=== PATIENT | male | born 1950 | race Two or more races ===

== ENCOUNTER 2024-10-13 02:11 | Inpatient (IN) | payer MEDICARE ==
[2024-10-13] VITALS (9 sets, daily range): BP systolic 118–126; BP diastolic 66–75; TEMP 98.2; O2SAT 97–100
[~2024-10-13] VITALS: Ht 172.7 cm; Wt 85.4 kg
[2024-10-13] MEDS ORDERED: ACETAMINOPHEN 650 MG/SUPP.RECT RC ONE (02:28)
[2024-10-13] MEDS: ACETAMINOPHEN 650 MG/SUPP.RECT RC ONE (02:34)
[2024-10-13 02:37] LABS: BASOPHILS # (AUTO) 0.1 K/uL (0.0-0.2); BASOPHILS % (AUTO) 0.5 % (0.0-2.0); EOSINOPHILS # (AUTO) 0.2 K/uL (0.0-0.7); EOSINOPHILS % (AUTO) 1.3 % (0.0-6.0); HEMATOCRIT 28 % (39-51); HEMOGLOBIN 8.9 g/dL (13.5-17.5); LYMPHOCYTES # (AUTO) 0.6 K/uL (0.8-4.8); LYMPHOCYTES % (AUTO) 4.6 % (20.0-44.0); MEAN CORPUSCULAR HEMOGLOBIN 26 PG (26.0-33.0); MEAN CORPUSCULAR HGB CONC 32 g/dl (31.0-36.0); MEAN CORPUSCULAR VOLUME 80 fL (80-96); MONOCYTES # (AUTO) 1.1 K/uL (0.1-1.30); MONOCYTES % (AUTO) 8.3 % (2.0-12.0); NEUTROPHILS # (AUTO) 11.6 K/uL (1.8-8.9); NEUTROPHILS % (AUTO) 85.3 % (43.0-81.0); PLATELET COUNT (AUTO) 166 K/uL (150-450); RED BLOOD CELL COUNT(AUTO) 3.48 MIL/uL (4.5-6.0); RED CELL DISTRIBUTION WIDTH 17.3 % (11.5-15.0); WHITE BLOOD COUNT (AUTO) 13.6 K/uL (4.3-11.0)
[2024-10-13 02:38] LABS: APPEARANCE,URINE CLEAR (CLEAR); BILIRUBIN,URINE NEGATIVE (NEGATIVE); BLOOD, URINE NEGATIVE Ery/uL (NEGATIVE); COLOR,URINE YELLOW (YELLOW); KETONES,URINE TRACE mg/dL (NEGATIVE); LEUKOCYTE ESTERASE ,URINE NEGATIVE (NEGATIVE); NITRITE, URINE NEGATIVE (NEGATIVE); PH,URINE 6.5 (5.0-8.0); PROTEIN,URINE TRACE mg/dl (NEGATIVE); UGLUCOSE NEGATIVE (NEGATIVE)
[2024-10-13 02:39] LABS: OCCULT BLOOD STOOL POSITIVE (NEGATIVE)
[2024-10-13 02:43] LABS: ABG BASE EXCESS 8.2 mmol/L (-2.0-3.0); ABG OXYGEN SATURATION 86.5 % (94.0-98.0); ABG PCO2 39.8 mmHg (35.0-48.0); ABG PH 7.519 (7.350-7.450); ABG PO2 48.8 mmHg (83.0-108.0); ABG TOTAL HEMOGLOBIN 10.1 G/dL (13.5-17.5); COHb 0.3 % (0.5-1.5); MetHb 0.3 % (0.0-1.5); SITE, ABG RIGHT RADIAL
[2024-10-13 02:49] LABS: CALCIUM, SERUM 8.3 mg/dL (8.5-10.1); CARBON DIOXIDE 38 mmol/L (21-32); CHLORIDE 105 mmol/L (98-107); CREATININE 0.8 mg/dL (0.6-1.3); GLUCOSE 260 mg/dL (74-106); SODIUM SERUM 140 mmol/L (136-145); UREA NITROGEN, BLOOD 30 mg/dL (7-18)
[2024-10-13 03:02] LABS: ALANINE AMINOTRANSFERASE 17 U/L (12-78); ALBUMIN 1.8 g/dL (3.4-5.0); ALKALINE PHOSPHATASE 248 U/L (46-116); ASPARTATE AMINOTRANSFERASE 26 U/L (15-37); BILIRUBIN,TOTAL 0.4 mg/dL (0.2-1.0); NT-PRO BNP 543 pg/mL (0-125); TOTAL PROTEIN, SERUM 8.5 g/dL (6.4-8.2)
[2024-10-13] MEDS ORDERED: PANTOPRAZOLE 40 MG VIAL ONE ×2 (03:02→08:47)
[2024-10-13] MEDS ORDERED: PIPERACI/TAZO 3.375GM/D5W 50ML PB IV ONE (03:03)
[2024-10-13] MEDS: IV NS 0.9% 1,000 ML IV ONE ×2 (03:10)
[2024-10-13] MEDS: PANTOPRAZOLE 40 MG VIAL IV ONE (03:10)
[2024-10-13 03:13] LABS: ADD URINE CULTURE NO; BACTERIA,URINE None seen /HPF (None Seen); MUCUS,URINE Few /LPF (None Seen); RBC,URINE NONE SEEN /HPF (0-2); SQUAMOUS EPITHELIAL CELL,UR None Seen /HPF (None Seen); WBC,URINE NONE SEEN /HPF (0-3)
[2024-10-13] MEDS: PIPERACILLIN /TAZOBACTAM 3.375 G in IV D5W 50 ML IV ONE (03:15)
[2024-10-13 03:27] LABS: LACTIC ACID 3.5 mmol/L (0.4-2.0)
[2024-10-13] MEDS ORDERED: INSULIN REGULAR, HUMAN 100 UNIT/ML 10 ML VIAL SQ SCH (06:00)
[2024-10-13] MEDS ORDERED: ALBUTEROL FS 2.5 MG/3 ML VIAL.NEB NEB PRN (06:00)
[2024-10-13] MEDS: ENOXAPARIN SODIUM 40 MG/0.4 ML DISP.SYRIN SQ SCH (06:00)
[2024-10-13] MEDS ORDERED: Z GUARD REMEDY 4 OZ OINT TP PRN (06:00)
[2024-10-13] MEDS ORDERED: ONDANSETRON HCL/PF 4 MG/2 ML VIAL IVP PRN (06:00)
[2024-10-13] MEDS ORDERED: ENOXAPARIN SODIUM 40 MG/0.4 ML DISP.SYRIN SQ ONE (06:21)
[2024-10-13] MEDS: BLOOD SUGAR DIAGNOSTIC 1 EACH STRIP IN SCH (06:33)
[2024-10-13] MEDS ORDERED: MAGN400O6 GT (08:29)
[2024-10-13] MEDS ORDERED: IPRA4AER IH ×2 (08:29)
[2024-10-13] MEDS ORDERED: NUT.237L30 GT (08:29)
[2024-10-13] MEDS ORDERED: PYRI25TA4 GT (08:29)
[2024-10-13] MEDS ORDERED: BISA10SU11 RC (08:29)
[2024-10-13] MEDS ORDERED: SIMV10TA98 GT (08:29)
[2024-10-13] MEDS ORDERED: ACET-2030 GT (08:29)
[2024-10-13] MEDS ORDERED: DOCU100T2 GT (08:29)
[2024-10-13] MEDS ORDERED: AMIN30LI66 GT (08:29)
[2024-10-13] MEDS ORDERED: ACET-868 GT (08:29)
[2024-10-13] MEDS ORDERED: CHLO473M2 MM (08:29)
[2024-10-13] MEDS ORDERED: NA P133E RC (08:29)
[2024-10-13] MEDS ORDERED: INSU100V SQ (08:29)
[2024-10-13] MEDS ORDERED: ENOX60DI SQ (08:29)
[2024-10-13] MEDS ORDERED: HYDR-4182 RC (08:29)
[2024-10-13] MEDS ORDERED: BENA40TA8 GT (08:29)
[2024-10-13] MEDS ORDERED: HYDR25TA4 GT (08:29)
[2024-10-13] MEDS ORDERED: OMEP20CA15 GT (08:29)
[2024-10-13] MEDS ORDERED: INSU100V7 SQ (08:29)
[2024-10-13] MEDS: IV NS 0.9% 1,000 ML IV PRN (08:30)
[2024-10-13 08:47] LABS: BASOPHILS % (AUTO) 0.4 % (0.0-2.0); EOSINOPHILS # (AUTO) 0.2 K/uL (0.0-0.7); EOSINOPHILS % (AUTO) 2.4 % (0.0-6.0); HEMATOCRIT 27 % (39-51); HEMOGLOBIN 8.7 g/dL (13.5-17.5); LYMPHOCYTES # (AUTO) 0.7 K/uL (0.8-4.8); LYMPHOCYTES % (AUTO) 7.3 % (20.0-44.0); MEAN CORPUSCULAR HEMOGLOBIN 26 PG (26.0-33.0); MEAN CORPUSCULAR HGB CONC 33 g/dl (31.0-36.0); MEAN CORPUSCULAR VOLUME 80 fL (80-96); MONOCYTES # (AUTO) 1.1 K/uL (0.1-1.30); MONOCYTES % (AUTO) 11.5 % (2.0-12.0); NEUTROPHILS # (AUTO) 7.8 K/uL (1.8-8.9); NEUTROPHILS % (AUTO) 78.4 % (43.0-81.0); PLATELET COUNT (AUTO) 146 K/uL (150-450); RED BLOOD CELL COUNT(AUTO) 3.32 MIL/uL (4.5-6.0); RED CELL DISTRIBUTION WIDTH 17.3 % (11.5-15.0)
[2024-10-13] MEDS: PANTOPRAZOLE 40 MG VIAL IV SCH (09:01)
[2024-10-13 09:35] LABS: ALBUMIN 1.7 g/dL (3.4-5.0); CARBON DIOXIDE 36 mmol/L (21-32); CHLORIDE 108 mmol/L (98-107); GLUCOSE 218 mg/dL (74-106); MAGNESIUM 2.3 mg/dL (1.8-2.4); NT-PRO BNP 842 pg/mL (0-125); PHOSPHORUS 2.7 mg/dL (2.5-4.9); POTASSIUM 3.7 mmol/L (3.5-5.1); SODIUM SERUM 144 mmol/L (136-145); UREA NITROGEN, BLOOD 27 mg/dL (7-18)
[2024-10-13 09:50] LABS: LACTIC ACID 2.1 mmol/L (0.4-2.0)
[2024-10-13 10:24] LABS: CREATININE 0.4 mg/dL (0.6-1.3)
[2024-10-13] MEDS: ZOSYN IVPB 3.375 G in IV D5W 50ml IV SCH ×2 (12:00→23:28)
[2024-10-13] MEDS: INSULIN REGULAR, HUMAN 100 UNIT/ML 3 ML VIAL SQ SCH (12:00)
[2024-10-13] MEDS: FUROSEMIDE 20 MG/2 ML VIAL IV SCH (14:11)
[2024-10-14] VITALS (11 sets, daily range): BP systolic 113–133; BP diastolic 62–74; TEMP 97.3–100.4; O2SAT 96–99
[2024-10-14 07:22] LABS: INR 1.13 (0.91-1.10); PROTHROMBIN TIME 11.9 SECS (9.2-11.1)
[2024-10-14 07:24] LABS: BASOPHILS % (AUTO) 0.5 % (0.0-2.0); CALCIUM, SERUM 8.2 mg/dL (8.5-10.1); CREATININE 0.6 mg/dL (0.6-1.3); EOSINOPHILS # (AUTO) 0.5 K/uL (0.0-0.7); EOSINOPHILS % (AUTO) 7.4 % (0.0-6.0); HEMATOCRIT 23 % (39-51); HEMOGLOBIN 7.5 g/dL (13.5-17.5); LYMPHOCYTES # (AUTO) 0.6 K/uL (0.8-4.8); LYMPHOCYTES % (AUTO) 9.3 % (20.0-44.0); MAGNESIUM 2.3 mg/dL (1.8-2.4); MEAN CORPUSCULAR HEMOGLOBIN 26 PG (26.0-33.0); MEAN CORPUSCULAR HGB CONC 32 g/dl (31.0-36.0); MEAN CORPUSCULAR VOLUME 81 fL (80-96); MONOCYTES # (AUTO) 0.7 K/uL (0.1-1.30); MONOCYTES % (AUTO) 10.2 % (2.0-12.0); NEUTROPHILS # (AUTO) 4.7 K/uL (1.8-8.9); NEUTROPHILS % (AUTO) 72.6 % (43.0-81.0); PHOSPHORUS 2.5 mg/dL (2.5-4.9); PLATELET COUNT (AUTO) 140 K/uL (150-450); POTASSIUM 3.4 mmol/L (3.5-5.1); RED BLOOD CELL COUNT(AUTO) 2.89 MIL/uL (4.5-6.0); RED CELL DISTRIBUTION WIDTH 17.5 % (11.5-15.0); WHITE BLOOD COUNT (AUTO) 6.5 K/uL (4.3-11.0)
[2024-10-14] MEDS: POTASSIUM CL. PREMIX PERIPHER. 50 ML IV SCH (10:38)
[2024-10-14] MEDS: NEOMY SULF/BACITRAC ZN/POLY 15 GM TUBE TP SCH (10:38)
[2024-10-14] MEDS: ACETAMINOPHEN 650 MG/SUPP.RECT RC PRN (11:50)
[2024-10-14] MEDS ORDERED: DEXTROSE 50%-WATER 50 ML DISP.SYRIN IV PRN (18:30)
[2024-10-14] MEDS: GLUCERNA 1.2 1,000 ML BOTTLE NG PRN (19:04)
[2024-10-14] MEDS: INSULIN REGULAR, HUMAN 100 UNIT/ML 3 ML VIAL SQ PRN (19:05)
[2024-10-14] MEDS: PANTOPRAZOLE 40 MG VIAL IV SCH (21:00)
[2024-10-15] VITALS (8 sets, daily range): BP systolic 118–187; BP diastolic 70–103; TEMP 97.7–99.1; O2SAT 92–100
[2024-10-15] MEDS: BLOOD SUGAR DIAGNOSTIC 1 EACH STRIP IN SCH (00:49)
[2024-10-15 07:40] LABS: CALCIUM, SERUM 8.2 mg/dL (8.5-10.1); CREATININE 0.6 mg/dL (0.6-1.3); POTASSIUM 4.2 mmol/L (3.5-5.1)
[2024-10-15 10:15] LABS: BASOPHILS % (AUTO) 0.7 % (0.0-2.0); EOSINOPHILS # (AUTO) 0.4 K/uL (0.0-0.7); EOSINOPHILS % (AUTO) 6.9 % (0.0-6.0); HEMATOCRIT 25 % (39-51); LYMPHOCYTES # (AUTO) 0.6 K/uL (0.8-4.8); LYMPHOCYTES % (AUTO) 11.5 % (20.0-44.0); MEAN CORPUSCULAR HEMOGLOBIN 26 PG (26.0-33.0); MEAN CORPUSCULAR HGB CONC 32 g/dl (31.0-36.0); MEAN CORPUSCULAR VOLUME 81 fL (80-96); MONOCYTES # (AUTO) 0.6 K/uL (0.1-1.30); MONOCYTES % (AUTO) 10.8 % (2.0-12.0); NEUTROPHILS % (AUTO) 70.1 % (43.0-81.0); PLATELET COUNT (AUTO) 143 K/uL (150-450); RED BLOOD CELL COUNT(AUTO) 3.11 MIL/uL (4.5-6.0); RED CELL DISTRIBUTION WIDTH 17.3 % (11.5-15.0); WHITE BLOOD COUNT (AUTO) 5.6 K/uL (4.3-11.0)
[2024-10-15] MEDS: PANTOPRAZOLE 40 MG/PACK PACK GT SCH (20:43)
[2024-10-16] VITALS (11 sets, daily range): BP systolic 113–165; BP diastolic 62–97; TEMP 98.1–100.1; O2SAT 96–99
[2024-10-16 06:56] LABS: BASOPHILS % (AUTO) 0.7 % (0.0-2.0); EOSINOPHILS # (AUTO) 0.3 K/uL (0.0-0.7); EOSINOPHILS % (AUTO) 4.7 % (0.0-6.0); HEMATOCRIT 26 % (39-51); HEMOGLOBIN 8.3 g/dL (13.5-17.5); LYMPHOCYTES # (AUTO) 0.7 K/uL (0.8-4.8); LYMPHOCYTES % (AUTO) 9.8 % (20.0-44.0); MEAN CORPUSCULAR HEMOGLOBIN 26 PG (26.0-33.0); MEAN CORPUSCULAR HGB CONC 32 g/dl (31.0-36.0); MEAN CORPUSCULAR VOLUME 81 fL (80-96); MONOCYTES # (AUTO) 0.7 K/uL (0.1-1.30); NEUTROPHILS # (AUTO) 5.3 K/uL (1.8-8.9); NEUTROPHILS % (AUTO) 74.8 % (43.0-81.0); PLATELET COUNT (AUTO) 158 K/uL (150-450); RED BLOOD CELL COUNT(AUTO) 3.21 MIL/uL (4.5-6.0); RED CELL DISTRIBUTION WIDTH 17.4 % (11.5-15.0); WHITE BLOOD COUNT (AUTO) 7.1 K/uL (4.3-11.0)
[2024-10-16 07:19] LABS: CALCIUM, SERUM 8.4 mg/dL (8.5-10.1); CREATININE 0.7 mg/dL (0.6-1.3); MAGNESIUM 2.2 mg/dL (1.8-2.4); POTASSIUM 3.7 mmol/L (3.5-5.1)
[2024-10-16 09:18] LABS: ABG BASE EXCESS 6.2 mmol/L (-2.0-3.0); ABG OXYGEN SATURATION 98.2 % (94.0-98.0); ABG PCO2 43.7 mmHg (35.0-48.0); ABG PH 7.464 (7.350-7.450); ABG PO2 105.8 mmHg (83.0-108.0); ABG TOTAL HEMOGLOBIN 10.7 G/dL (13.5-17.5); COHb 0.7 % (0.5-1.5); MetHb 0.1 % (0.0-1.5); O2Hb 97.4 % (94.0-97.0); SITE, ABG RIGHT RADIAL
[2024-10-17] VITALS (8 sets, daily range): BP systolic 150–167; BP diastolic 81–98; TEMP 98.4–98.6; O2SAT 95–98
[2024-10-17 06:36] LABS: BASOPHILS % (AUTO) 0.6 % (0.0-2.0); EOSINOPHILS # (AUTO) 0.5 K/uL (0.0-0.7); EOSINOPHILS % (AUTO) 8.4 % (0.0-6.0); HEMATOCRIT 25 % (39-51); HEMOGLOBIN 8.1 g/dL (13.5-17.5); LYMPHOCYTES # (AUTO) 0.6 K/uL (0.8-4.8); LYMPHOCYTES % (AUTO) 10.8 % (20.0-44.0); MEAN CORPUSCULAR HEMOGLOBIN 26 PG (26.0-33.0); MEAN CORPUSCULAR HGB CONC 32 g/dl (31.0-36.0); MEAN CORPUSCULAR VOLUME 81 fL (80-96); MONOCYTES # (AUTO) 0.5 K/uL (0.1-1.30); MONOCYTES % (AUTO) 9.9 % (2.0-12.0); NEUTROPHILS # (AUTO) 3.9 K/uL (1.8-8.9); NEUTROPHILS % (AUTO) 70.3 % (43.0-81.0); PLATELET COUNT (AUTO) 147 K/uL (150-450); RED BLOOD CELL COUNT(AUTO) 3.07 MIL/uL (4.5-6.0); RED CELL DISTRIBUTION WIDTH 17.3 % (11.5-15.0); WHITE BLOOD COUNT (AUTO) 5.5 K/uL (4.3-11.0)
[2024-10-17 07:12] LABS: CREATININE 0.7 mg/dL (0.6-1.3); MAGNESIUM 2.3 mg/dL (1.8-2.4); PHOSPHORUS 2.7 mg/dL (2.5-4.9); POTASSIUM 3.7 mmol/L (3.5-5.1)
[2024-10-17 07:29] LABS: CALCIUM, SERUM 8.6 mg/dL (8.5-10.1)
[2024-10-17] MEDS: methylPREDNISolone SOD SUCC 125 MG/2ML VIAL IV SCH (14:42)
[2024-10-18] VITALS (8 sets, daily range): BP systolic 152–160; BP diastolic 87–97; TEMP 99–101.3; O2SAT 92–98
[2024-10-18 07:56] LABS: BASOPHILS % (AUTO) 0.1 % (0.0-2.0); EOSINOPHILS % (AUTO) 0.1 % (0.0-6.0); HEMATOCRIT 26 % (39-51); HEMOGLOBIN 8.3 g/dL (13.5-17.5); LYMPHOCYTES # (AUTO) 0.2 K/uL (0.8-4.8); LYMPHOCYTES % (AUTO) 3.2 % (20.0-44.0); MEAN CORPUSCULAR HEMOGLOBIN 26 PG (26.0-33.0); MEAN CORPUSCULAR HGB CONC 33 g/dl (31.0-36.0); MEAN CORPUSCULAR VOLUME 81 fL (80-96); MONOCYTES # (AUTO) 0.1 K/uL (0.1-1.30); MONOCYTES % (AUTO) 2.1 % (2.0-12.0); NEUTROPHILS # (AUTO) 6.2 K/uL (1.8-8.9); NEUTROPHILS % (AUTO) 94.5 % (43.0-81.0); PLATELET COUNT (AUTO) 147 K/uL (150-450); RED BLOOD CELL COUNT(AUTO) 3.16 MIL/uL (4.5-6.0); RED CELL DISTRIBUTION WIDTH 17.4 % (11.5-15.0); WHITE BLOOD COUNT (AUTO) 6.5 K/uL (4.3-11.0)
[2024-10-18 08:27] LABS: CALCIUM, SERUM 8.7 mg/dL (8.5-10.1); CREATININE 0.8 mg/dL (0.6-1.3); MAGNESIUM 2.2 mg/dL (1.8-2.4); PHOSPHORUS 2.8 mg/dL (2.5-4.9); POTASSIUM 4.8 mmol/L (3.5-5.1)
[2024-10-18 12:31] LABS: ABG BASE EXCESS 5.8 mmol/L (-2.0-3.0); ABG OXYGEN SATURATION 96.8 % (94.0-98.0); ABG PCO2 45.8 mmHg (35.0-48.0); ABG PH 7.442 (7.350-7.450); ABG PO2 88.8 mmHg (83.0-108.0); ABG TOTAL HEMOGLOBIN 9.2 G/dL (13.5-17.5); COHb 0.5 % (0.5-1.5); MetHb 0.2 % (0.0-1.5); O2Hb 96.1 % (94.0-97.0); SITE, ABG RIGHT RADIAL
[2024-10-18 20:48] LABS: APPEARANCE,URINE CLEAR (CLEAR); BILIRUBIN,URINE NEGATIVE (NEGATIVE); BLOOD, URINE NEGATIVE Ery/uL (NEGATIVE); COLOR,URINE YELLOW (YELLOW); KETONES,URINE NEGATIVE (NEGATIVE); LEUKOCYTE ESTERASE ,URINE NEGATIVE (NEGATIVE); NITRITE, URINE NEGATIVE (NEGATIVE); PROTEIN,URINE 1+ mg/dl (NEGATIVE); UGLUCOSE 2+ mg/dL (NEGATIVE); UROBILINOGEN,URINE 0.2 EU/dL (0.2)
[2024-10-18 20:53] LABS: ADD URINE CULTURE NO; BACTERIA,URINE Rare /HPF (None Seen); MUCUS,URINE Few /LPF (None Seen); RBC,URINE 0-2 /HPF (0-2); SQUAMOUS EPITHELIAL CELL,UR None Seen /HPF (None Seen); WBC,URINE 0-2 /HPF (0-3)
[2024-10-19] VITALS (9 sets, daily range): BP systolic 155–188; BP diastolic 90–101; TEMP 97.6–100.4; O2SAT 95–99
[2024-10-19 07:30] LABS: BASOPHILS % (AUTO) 0.3 % (0.0-2.0); HEMATOCRIT 25 % (39-51); HEMOGLOBIN 8.1 g/dL (13.5-17.5); LYMPHOCYTES # (AUTO) 0.2 K/uL (0.8-4.8); LYMPHOCYTES % (AUTO) 2.3 % (20.0-44.0); MEAN CORPUSCULAR HEMOGLOBIN 26 PG (26.0-33.0); MEAN CORPUSCULAR HGB CONC 32 g/dl (31.0-36.0); MEAN CORPUSCULAR VOLUME 81 fL (80-96); MONOCYTES # (AUTO) 0.4 K/uL (0.1-1.30); MONOCYTES % (AUTO) 3.9 % (2.0-12.0); NEUTROPHILS # (AUTO) 9.2 K/uL (1.8-8.9); NEUTROPHILS % (AUTO) 93.5 % (43.0-81.0); PLATELET COUNT (AUTO) 167 K/uL (150-450); RED BLOOD CELL COUNT(AUTO) 3.07 MIL/uL (4.5-6.0); RED CELL DISTRIBUTION WIDTH 17.3 % (11.5-15.0); WHITE BLOOD COUNT (AUTO) 9.8 K/uL (4.3-11.0)
[2024-10-19 10:14] LABS: CALCIUM, SERUM 8.7 mg/dL (8.5-10.1); MAGNESIUM 2.3 mg/dL (1.8-2.4); PHOSPHORUS 2.2 mg/dL (2.5-4.9); POTASSIUM 4.1 mmol/L (3.5-5.1)
[2024-10-19] MEDS: NEUTRA PHOS 1 POWD.PACKET GT ONE (15:56)
[2024-10-19] MEDS: hydrALAZINE HCL 25 MG TABLET PO PRN (17:17)
[2024-10-20] VITALS (9 sets, daily range): BP systolic 137–186; BP diastolic 66–98; TEMP 98.1–98.6; O2SAT 94–97
[2024-10-20] MEDS: INSULIN REGULAR, HUMAN 100 UNIT/ML 3 ML VIAL SQ ONE ×2 (01:50→03:30)
[2024-10-20] MEDS ORDERED: DEXTROSE 50%-WATER 50 ML DISP.SYRIN IV PRN (03:30)
[2024-10-20] MEDS: BLOOD SUGAR DIAGNOSTIC 1 EACH STRIP IN SCH (06:02)
[2024-10-20] MEDS: INSULIN REGULAR, HUMAN 100 UNIT/ML 3 ML VIAL SQ PRN (06:15)
[2024-10-20 07:18] LABS: CALCIUM, SERUM 9.1 mg/dL (8.5-10.1); MAGNESIUM 2.5 mg/dL (1.8-2.4); PHOSPHORUS 2.8 mg/dL (2.5-4.9); POTASSIUM 4.2 mmol/L (3.5-5.1)
[2024-10-20] MEDS: AMLODIPINE BESYLATE 5 MG TABLET PO SCH (08:20)
[2024-10-20] MEDS: INSULIN GLARGINE, 100 UNIT/ML CARTRIDGE SQ SCH (08:34)
[2024-10-20 12:24] LABS: BASOPHILS % (AUTO) 0.1 % (0.0-2.0); HEMATOCRIT 29 % (39-51); HEMOGLOBIN 8.8 g/dL (13.5-17.5); LYMPHOCYTES # (AUTO) 0.1 K/uL (0.8-4.8); LYMPHOCYTES % (AUTO) 1.2 % (20.0-44.0); MEAN CORPUSCULAR HEMOGLOBIN 26 PG (26.0-33.0); MEAN CORPUSCULAR HGB CONC 31 g/dl (31.0-36.0); MEAN CORPUSCULAR VOLUME 84 fL (80-96); MONOCYTES # (AUTO) 0.6 K/uL (0.1-1.30); MONOCYTES % (AUTO) 4.7 % (2.0-12.0); NEUTROPHILS # (AUTO) 11.3 K/uL (1.8-8.9); PLATELET COUNT (AUTO) 160 K/uL (150-450); RED BLOOD CELL COUNT(AUTO) 3.41 MIL/uL (4.5-6.0); RED CELL DISTRIBUTION WIDTH 18.4 % (11.5-15.0)
[2024-10-21] VITALS: BP 151/79; TEMP 98.6; O2SAT 91
[2024-10-21] MEDS ORDERED: DEXTROSE 50%-WATER 50 ML DISP.SYRIN IV PRN (01:30)
[2024-10-21 02:33] VITALS: O2SAT 95
[2024-10-21 05:10] LABS: ABG BASE EXCESS 8.4 mmol/L (-2.0-3.0); ABG PCO2 103.9 mmHg (35.0-48.0); ABG PH 7.191 (7.350-7.450); ABG PO2 63.1 mmHg (83.0-108.0); ABG TOTAL HEMOGLOBIN 9.3 G/dL (13.5-17.5); COHb 0.6 % (0.5-1.5); MetHb 0.2 % (0.0-1.5); O2Hb 85.3 % (94.0-97.0); SITE, ABG LEFT RADIAL
[2024-10-21] MEDS: INSULIN REGULAR, HUMAN 100 UNIT/ML 3 ML VIAL SQ PRN (06:12)
[2024-10-21] MEDS: BLOOD SUGAR DIAGNOSTIC 1 EACH STRIP IN SCH (06:21)
[2024-10-21 07:52] LABS: BASOPHILS % (AUTO) 0.1 % (0.0-2.0); HEMATOCRIT 23 % (39-51); HEMOGLOBIN 7.3 g/dL (13.5-17.5); LYMPHOCYTES # (AUTO) 0.1 K/uL (0.8-4.8); LYMPHOCYTES % (AUTO) 1.1 % (20.0-44.0); MEAN CORPUSCULAR HEMOGLOBIN 26 PG (26.0-33.0); MEAN CORPUSCULAR HGB CONC 31 g/dl (31.0-36.0); MEAN CORPUSCULAR VOLUME 83 fL (80-96); MONOCYTES # (AUTO) 0.6 K/uL (0.1-1.30); MONOCYTES % (AUTO) 5.8 % (2.0-12.0); NEUTROPHILS # (AUTO) 9.8 K/uL (1.8-8.9); PLATELET COUNT (AUTO) 137 K/uL (150-450); RED BLOOD CELL COUNT(AUTO) 2.81 MIL/uL (4.5-6.0); RED CELL DISTRIBUTION WIDTH 17.2 % (11.5-15.0); WHITE BLOOD COUNT (AUTO) 10.5 K/uL (4.3-11.0)
[2024-10-21 08:14] VITALS: BP 99/56; TEMP 99.5; O2SAT 96
[2024-10-21 08:16] LABS: ALBUMIN 1.6 g/dL (3.4-5.0); BILIRUBIN,TOTAL 0.4 mg/dL (0.2-1.0); CALCIUM, SERUM 8.8 mg/dL (8.5-10.1); CREATININE 1.4 mg/dL (0.6-1.3); MAGNESIUM 2.8 mg/dL (1.8-2.4); PHOSPHORUS 3.5 mg/dL (2.5-4.9); POTASSIUM 4.6 mmol/L (3.5-5.1); TOTAL PROTEIN, SERUM 7.6 g/dL (6.4-8.2)
[2024-10-21 15:58] VITALS: BP 116/60; TEMP 98.8; O2SAT 96
[2024-10-21] MEDS: FREE WATER VIA TUBE FEEDING GT SCH (19:47)
[2024-10-21 20:00] VITALS: BP 148/79; TEMP 98.8; O2SAT 97
[2024-10-22 07:05] LABS: HEMATOCRIT 27 % (39-51); HEMOGLOBIN 8.7 g/dL (13.5-17.5); LYMPHOCYTES # (AUTO) 0.2 K/uL (0.8-4.8); LYMPHOCYTES % (AUTO) 1.4 % (20.0-44.0); MEAN CORPUSCULAR HEMOGLOBIN 26 PG (26.0-33.0); MEAN CORPUSCULAR HGB CONC 32 g/dl (31.0-36.0); MEAN CORPUSCULAR VOLUME 81 fL (80-96); MONOCYTES # (AUTO) 0.4 K/uL (0.1-1.30); MONOCYTES % (AUTO) 3.7 % (2.0-12.0); NEUTROPHILS % (AUTO) 94.9 % (43.0-81.0); PLATELET COUNT (AUTO) 125 K/uL (150-450); RED BLOOD CELL COUNT(AUTO) 3.33 MIL/uL (4.5-6.0); RED CELL DISTRIBUTION WIDTH 17.4 % (11.5-15.0); WHITE BLOOD COUNT (AUTO) 10.5 K/uL (4.3-11.0)
[2024-10-22 07:28] LABS: ALBUMIN 1.8 g/dL (3.4-5.0); BILIRUBIN,TOTAL 0.4 mg/dL (0.2-1.0); CALCIUM, SERUM 9.2 mg/dL (8.5-10.1); MAGNESIUM 2.8 mg/dL (1.8-2.4); PHOSPHORUS 1.9 mg/dL (2.5-4.9); POTASSIUM 3.6 mmol/L (3.5-5.1); TOTAL PROTEIN, SERUM 8.4 g/dL (6.4-8.2)
[2024-10-22 07:30] VITALS: BP 125/83; TEMP 97.7; O2SAT 99
[2024-10-22] MEDS: INSULIN GLARGINE, 100 UNIT/ML CARTRIDGE SQ SCH (09:07)
[2024-10-22] MEDS: ALBUTEROL FS 2.5 MG/3 ML VIAL.NEB NEB SCH (15:30)
[2024-10-22 16:00] VITALS: BP 117/61; TEMP 97.5; O2SAT 100
[2024-10-22] MEDS: FREE WATER VIA TUBE FEEDING GT SCH (16:37)
[2024-10-22] MEDS: NEUTRA PHOS 1 POWD.PACKET NG ONE (16:37)
[2024-10-22 20:00] VITALS: BP 132/75; TEMP 98; O2SAT 99
[2024-10-23] VITALS: BP 124/69; TEMP 98.1; O2SAT 100
[2024-10-23 07:41] LABS: BASOPHILS % (AUTO) 0.6 % (0.0-2.0); HEMATOCRIT 26 % (39-51); HEMOGLOBIN 8.1 g/dL (13.5-17.5); LYMPHOCYTES # (AUTO) 0.1 K/uL (0.8-4.8); LYMPHOCYTES % (AUTO) 1.1 % (20.0-44.0); MEAN CORPUSCULAR HEMOGLOBIN 26 PG (26.0-33.0); MEAN CORPUSCULAR HGB CONC 32 g/dl (31.0-36.0); MEAN CORPUSCULAR VOLUME 81 fL (80-96); MONOCYTES # (AUTO) 0.3 K/uL (0.1-1.30); MONOCYTES % (AUTO) 3.1 % (2.0-12.0); NEUTROPHILS # (AUTO) 7.9 K/uL (1.8-8.9); NEUTROPHILS % (AUTO) 95.2 % (43.0-81.0); PLATELET COUNT (AUTO) 131 K/uL (150-450); RED BLOOD CELL COUNT(AUTO) 3.19 MIL/uL (4.5-6.0); WHITE BLOOD COUNT (AUTO) 8.2 K/uL (4.3-11.0)
[2024-10-23 07:53] LABS: CALCIUM, SERUM 8.7 mg/dL (8.5-10.1); CREATININE 0.9 mg/dL (0.6-1.3); POTASSIUM 3.4 mmol/L (3.5-5.1)
[2024-10-23 08:00] VITALS: BP 129/69; TEMP 98.2; O2SAT 96
[2024-10-23 09:28] LABS: ABG BASE EXCESS 8.7 mmol/L (-2.0-3.0); ABG OXYGEN SATURATION 97.6 % (94.0-98.0); ABG PCO2 43.5 mmHg (35.0-48.0); ABG PH 7.495 (7.350-7.450); ABG PO2 99.6 mmHg (83.0-108.0); ABG TOTAL HEMOGLOBIN 9.1 G/dL (13.5-17.5); COHb 0.1 % (0.5-1.5); MetHb 0.3 % (0.0-1.5); O2Hb 97.2 % (94.0-97.0); PEEP,BG 5 cm H2O; SITE, ABG RIGHT RADIAL; VT, ABG 450 mL
[2024-10-23] MEDS: INSULIN GLARGINE, 100 UNIT/ML CARTRIDGE SQ SCH (10:15)
[2024-10-23] MEDS: POTASSIUM CHLORIDE 20 MEQ POWDER PACKET NG SCH (10:26)
[2024-10-23 16:00] VITALS: BP 127/69; TEMP 97.2; O2SAT 96
[2024-10-23 20:00] VITALS: BP 126/70; TEMP 98.2; O2SAT 100
[2024-10-24] VITALS (12 sets, daily range): BP systolic 116–130; BP diastolic 61–69; TEMP 97.7–98.4; O2SAT 93–99
[2024-10-24 06:41] LABS: BASOPHILS % (AUTO) 0.5 % (0.0-2.0); HEMATOCRIT 24 % (39-51); HEMOGLOBIN 7.8 g/dL (13.5-17.5); LYMPHOCYTES # (AUTO) 0.1 K/uL (0.8-4.8); LYMPHOCYTES % (AUTO) 1.1 % (20.0-44.0); MEAN CORPUSCULAR HEMOGLOBIN 26 PG (26.0-33.0); MEAN CORPUSCULAR HGB CONC 33 g/dl (31.0-36.0); MEAN CORPUSCULAR VOLUME 80 fL (80-96); MONOCYTES # (AUTO) 0.4 K/uL (0.1-1.30); MONOCYTES % (AUTO) 4.2 % (2.0-12.0); NEUTROPHILS % (AUTO) 94.2 % (43.0-81.0); PLATELET COUNT (AUTO) 133 K/uL (150-450); RED BLOOD CELL COUNT(AUTO) 2.96 MIL/uL (4.5-6.0); RED CELL DISTRIBUTION WIDTH 17.3 % (11.5-15.0); WHITE BLOOD COUNT (AUTO) 8.5 K/uL (4.3-11.0)
[2024-10-24 06:49] LABS: CALCIUM, SERUM 8.6 mg/dL (8.5-10.1); CREATININE 0.9 mg/dL (0.6-1.3); POTASSIUM 3.7 mmol/L (3.5-5.1)
[2024-10-24] MEDS: FREE WATER VIA TUBE FEEDING GT SCH (08:00)
[2024-10-24] MEDS: INSULIN GLARGINE, 100 UNIT/ML CARTRIDGE SQ SCH (09:30)
[2024-10-24 10:53] LABS: ABG BASE EXCESS 9.8 mmol/L (-2.0-3.0); ABG PCO2 43.7 mmHg (35.0-48.0); ABG PH 7.507 (7.350-7.450); ABG PO2 92.5 mmHg (83.0-108.0); COHb 0.3 % (0.5-1.5); MetHb 0.2 % (0.0-1.5); O2Hb 96.5 % (94.0-97.0); SITE, ABG RIGHT RADIAL
[2024-10-25] VITALS (11 sets, daily range): BP systolic 115–137; BP diastolic 66–77; TEMP 97.5–98.1; O2SAT 97–99
[2024-10-25 07:20] LABS: BASOPHILS % (AUTO) 0.5 % (0.0-2.0); HEMATOCRIT 27 % (39-51); HEMOGLOBIN 8.3 g/dL (13.5-17.5); LYMPHOCYTES # (AUTO) 0.1 K/uL (0.8-4.8); MEAN CORPUSCULAR HEMOGLOBIN 26 PG (26.0-33.0); MEAN CORPUSCULAR HGB CONC 31 g/dl (31.0-36.0); MEAN CORPUSCULAR VOLUME 82 fL (80-96); MONOCYTES # (AUTO) 0.3 K/uL (0.1-1.30); MONOCYTES % (AUTO) 3.7 % (2.0-12.0); NEUTROPHILS # (AUTO) 8.7 K/uL (1.8-8.9); NEUTROPHILS % (AUTO) 94.8 % (43.0-81.0); PLATELET COUNT (AUTO) 132 K/uL (150-450); RED BLOOD CELL COUNT(AUTO) 3.24 MIL/uL (4.5-6.0); RED CELL DISTRIBUTION WIDTH 17.7 % (11.5-15.0); WHITE BLOOD COUNT (AUTO) 9.1 K/uL (4.3-11.0)
[2024-10-25 07:44] LABS: CALCIUM, SERUM 8.3 mg/dL (8.5-10.1); CREATININE 1.1 mg/dL (0.6-1.3)
[2024-10-25] MEDS: INSULIN GLARGINE, 100 UNIT/ML CARTRIDGE SQ SCH (09:09)
[2024-10-25 09:21] LABS: BASOPHILS # (AUTO) 0.1 K/uL (0.0-0.2); BASOPHILS % (AUTO) 0.5 % (0.0-2.0); HEMATOCRIT 27 % (39-51); HEMOGLOBIN 8.5 g/dL (13.5-17.5); LYMPHOCYTES # (AUTO) 0.1 K/uL (0.8-4.8); LYMPHOCYTES % (AUTO) 1.2 % (20.0-44.0); MEAN CORPUSCULAR HEMOGLOBIN 26 PG (26.0-33.0); MEAN CORPUSCULAR HGB CONC 32 g/dl (31.0-36.0); MEAN CORPUSCULAR VOLUME 81 fL (80-96); MONOCYTES # (AUTO) 0.4 K/uL (0.1-1.30); MONOCYTES % (AUTO) 3.7 % (2.0-12.0); NEUTROPHILS # (AUTO) 10.2 K/uL (1.8-8.9); NEUTROPHILS % (AUTO) 94.6 % (43.0-81.0); PLATELET COUNT (AUTO) 135 K/uL (150-450); RED BLOOD CELL COUNT(AUTO) 3.32 MIL/uL (4.5-6.0); RED CELL DISTRIBUTION WIDTH 17.8 % (11.5-15.0); WHITE BLOOD COUNT (AUTO) 10.8 K/uL (4.3-11.0)
[2024-10-25 09:35] LABS: CALCIUM, SERUM 8.4 mg/dL (8.5-10.1); CREATININE 1.1 mg/dL (0.6-1.3); POTASSIUM 3.8 mmol/L (3.5-5.1)
[2024-10-26] VITALS (13 sets, daily range): BP systolic 100–146; BP diastolic 63–90; TEMP 97.5–97.7; O2SAT 97–100
[2024-10-26 07:27] LABS: BASOPHILS # (AUTO) 0.1 K/uL (0.0-0.2); BASOPHILS % (AUTO) 0.9 % (0.0-2.0); EOSINOPHILS % (AUTO) 0.1 % (0.0-6.0); HEMATOCRIT 27 % (39-51); HEMOGLOBIN 8.7 g/dL (13.5-17.5); LYMPHOCYTES # (AUTO) 0.3 K/uL (0.8-4.8); LYMPHOCYTES % (AUTO) 2.5 % (20.0-44.0); MEAN CORPUSCULAR HEMOGLOBIN 26 PG (26.0-33.0); MEAN CORPUSCULAR HGB CONC 32 g/dl (31.0-36.0); MEAN CORPUSCULAR VOLUME 80 fL (80-96); MONOCYTES # (AUTO) 0.7 K/uL (0.1-1.30); MONOCYTES % (AUTO) 6.8 % (2.0-12.0); NEUTROPHILS # (AUTO) 9.2 K/uL (1.8-8.9); NEUTROPHILS % (AUTO) 89.7 % (43.0-81.0); PLATELET COUNT (AUTO) 126 K/uL (150-450); RED BLOOD CELL COUNT(AUTO) 3.41 MIL/uL (4.5-6.0); RED CELL DISTRIBUTION WIDTH 17.7 % (11.5-15.0); WHITE BLOOD COUNT (AUTO) 10.2 K/uL (4.3-11.0)
[2024-10-26 07:44] LABS: CALCIUM, SERUM 8.4 mg/dL (8.5-10.1); CREATININE 0.8 mg/dL (0.6-1.3); POTASSIUM 3.2 mmol/L (3.5-5.1)
[2024-10-26] MEDS: predniSONE 20 MG TABLET PO SCH (09:41)
[2024-10-26] MEDS: POTASSIUM CHLORIDE 20 MEQ POWDER PACKET NG SCH (10:46)
[2024-10-26] MEDS ORDERED: FREE WATER VIA TUBE FEEDING GT SCH (21:00)
[2024-10-26] MEDS: FREE WATER VIA TUBE FEEDING GT SCH (21:41)
[2024-10-27] VITALS (11 sets, daily range): BP systolic 112–136; BP diastolic 68–82; TEMP 97.5–98.2; O2SAT 96–100
[2024-10-27 07:22] LABS: CALCIUM, SERUM 8.3 mg/dL (8.5-10.1); CREATININE 0.8 mg/dL (0.6-1.3); POTASSIUM 3.5 mmol/L (3.5-5.1)
[2024-10-27 08:42] LABS: BASOPHILS # (AUTO) 0.1 K/uL (0.0-0.2); BASOPHILS % (AUTO) 0.9 % (0.0-2.0); EOSINOPHILS # (AUTO) 0.1 K/uL (0.0-0.7); EOSINOPHILS % (AUTO) 1.1 % (0.0-6.0); HEMATOCRIT 27 % (39-51); HEMOGLOBIN 8.7 g/dL (13.5-17.5); LYMPHOCYTES # (AUTO) 0.3 K/uL (0.8-4.8); LYMPHOCYTES % (AUTO) 2.9 % (20.0-44.0); MEAN CORPUSCULAR HEMOGLOBIN 26 PG (26.0-33.0); MEAN CORPUSCULAR HGB CONC 33 g/dl (31.0-36.0); MEAN CORPUSCULAR VOLUME 80 fL (80-96); MONOCYTES # (AUTO) 0.6 K/uL (0.1-1.30); MONOCYTES % (AUTO) 6.5 % (2.0-12.0); NEUTROPHILS # (AUTO) 8.6 K/uL (1.8-8.9); NEUTROPHILS % (AUTO) 88.6 % (43.0-81.0); PLATELET COUNT (AUTO) 120 K/uL (150-450); RED BLOOD CELL COUNT(AUTO) 3.36 MIL/uL (4.5-6.0); RED CELL DISTRIBUTION WIDTH 17.7 % (11.5-15.0); WHITE BLOOD COUNT (AUTO) 9.7 K/uL (4.3-11.0)
[2024-10-28] VITALS (14 sets, daily range): BP systolic 96–144; BP diastolic 52–86; TEMP 97.7–99; O2SAT 95–100
[2024-10-28 07:12] LABS: BASOPHILS % (AUTO) 0.3 % (0.0-2.0); EOSINOPHILS # (AUTO) 0.1 K/uL (0.0-0.7); EOSINOPHILS % (AUTO) 0.9 % (0.0-6.0); HEMATOCRIT 27 % (39-51); HEMOGLOBIN 8.7 g/dL (13.5-17.5); LYMPHOCYTES # (AUTO) 0.4 K/uL (0.8-4.8); MEAN CORPUSCULAR HEMOGLOBIN 26 PG (26.0-33.0); MEAN CORPUSCULAR HGB CONC 33 g/dl (31.0-36.0); MEAN CORPUSCULAR VOLUME 79 fL (80-96); MONOCYTES # (AUTO) 0.9 K/uL (0.1-1.30); MONOCYTES % (AUTO) 8.3 % (2.0-12.0); NEUTROPHILS # (AUTO) 9.4 K/uL (1.8-8.9); NEUTROPHILS % (AUTO) 86.5 % (43.0-81.0); PLATELET COUNT (AUTO) 126 K/uL (150-450); RED BLOOD CELL COUNT(AUTO) 3.37 MIL/uL (4.5-6.0); WHITE BLOOD COUNT (AUTO) 10.8 K/uL (4.3-11.0)
[2024-10-28 07:21] LABS: ALBUMIN 1.8 g/dL (3.4-5.0); BILIRUBIN,TOTAL 0.7 mg/dL (0.2-1.0); CALCIUM, SERUM 8.3 mg/dL (8.5-10.1); CREATININE 0.9 mg/dL (0.6-1.3); MAGNESIUM 2.5 mg/dL (1.8-2.4); PHOSPHORUS 2.9 mg/dL (2.5-4.9); POTASSIUM 3.4 mmol/L (3.5-5.1); TOTAL PROTEIN, SERUM 6.5 g/dL (6.4-8.2)
[2024-10-28] MEDS ORDERED: hydrALAZINE HCL 25 MG TABLET GT PRN (09:27)
[2024-10-28] MEDS ORDERED: AMLODIPINE BESYLATE 5 MG TABLET GT SCH (09:27)
[2024-10-28] MEDS ORDERED: predniSONE 20 MG TABLET GT SCH (09:28)
[2024-10-28] MEDS: POTASSIUM CHLORIDE 20 MEQ POWDER PACKET NG SCH (09:42)
== END 2024-10-28 21:30 | DRG 871 ==
LOC: ER 02:11 → TRANSITION 05:14 → TELE 09:17 → MED 10-16 02:45 → TELE 10-21 05:35
PROVIDERS: ADMIT Nurse Practitioner Acute Care
PROC: 5A1945Z Respiratory Ventilation, 24-96 Consecutive Hours (ICD-10-PCS; principal; 2024-10-21)
PROC: 5A1935Z Respiratory Ventilation, Less than 24 Consecutive Hours (ICD-10-PCS; 2024-10-24)
PROC: 5A1935Z Respiratory Ventilation, Less than 24 Consecutive Hours (ICD-10-PCS; 2024-10-25)
PROC: 5A1935Z Respiratory Ventilation, Less than 24 Consecutive Hours (ICD-10-PCS; 2024-10-26)
PROC: 5A1935Z Respiratory Ventilation, Less than 24 Consecutive Hours (ICD-10-PCS; 2024-10-27)
DX: A41.9 Sepsis, unspecified organism (principal); E43 Unspecified severe protein-calorie malnutrition; J15.69 Pneumonia due to other Gram-negative bacteria; I21.A1 Myocardial infarction type 2; J96.21 Acute and chronic respiratory failure with hypoxia; R53.2 Functional quadriplegia; J96.22 Acute and chronic respiratory failure with hypercapnia; D62 Acute posthemorrhagic anemia; I50.32 Chronic diastolic (congestive) heart failure; E87.20 Acidosis, unspecified; E87.0 Hyperosmolality and hypernatremia; K92.2 Gastrointestinal hemorrhage, unspecified; G93.49 Other encephalopathy; N17.9 Acute kidney failure, unspecified; I11.0 Hypertensive heart disease with heart failure; D69.6 Thrombocytopenia, unspecified; E78.5 Hyperlipidemia, unspecified; E88.09 Other disorders of plasma-protein metabolism, not elsewhere classified; R13.10 Dysphagia, unspecified; Z93.0 Tracheostomy status; Z93.1 Gastrostomy status; Z20.822 Contact with and (suspected) exposure to COVID-19; Z66 Do not resuscitate; Z74.01 Bed confinement status; D86.9 Sarcoidosis, unspecified; Z68.28 Body mass index [BMI] 28.0-28.9, adult; L90.5 Scar conditions and fibrosis of skin; S01.312A Laceration without foreign body of left ear, initial encounter; X58.XXXA Exposure to other specified factors, initial encounter; Y93.9 Activity, unspecified; Y92.129 Unspecified place in nursing home as the place of occurrence of the external cause; E11.65 Type 2 diabetes mellitus with hyperglycemia
CPT/HCPCS: 31720; 36415; 36600; 71045-TC; 71250-TC; 74018; 80048-TC; 80053-TC; 81001; 82040-TC; 82272-TC; 82803-TC; 82962-TC; 83605-TC; 83735-TC; 83880; 84100-TC; 84484-TC; 85025-TC; 85610-TC; 86850-TC; 87040-TC; 87081-TC; 87086-TC; 93307-TC; 93970-TC; 94002-TC; 94003-TC; 94640-TC; 94760-TC; 94761-TC; 94762-TC; 94799-TC; A4223; G0378; J1650; J1815; J1940; J2405; J2470; J2543; J2919; J3480; J7030; J7060

== ENCOUNTER 2024-11-23 10:44 | Emergency (ER) | payer MEDICARE, OTHER ==
[~2024-11-23] VITALS: Ht 167.6 cm; Wt 85.7 kg
[~2024-11-23 10:44] MED LIST: ACET-2030 GT; ACET-868 GT; AMIN30LI66 GT; BENA40TA8 GT; BISA10SU11 RC; CHLO473M2 MM; DOCU100T2 GT; ENOX60DI SQ; HYDR-4182 RC; HYDR25TA4 GT; INSU100V SQ; INSU100V7 SQ; IPRA4AER IH; MAGN400O6 GT; NA P133E RC; NUT.237L30 GT; OMEP20CA15 GT; PYRI25TA4 GT; SIMV10TA98 GT
[2024-11-23 11:08] VITALS: O2SAT 98
[2024-11-23] MEDS ORDERED: DIATR MEGLU/DIATRIZOATE SODIUM 120 ML BOTTLE (GASTROGRAPHIN) ONE (12:19)
[2024-11-23] MEDS: DIATR MEGLU/DIATRIZOATE SODIUM 30 ML BOTTLE (GASTROGRAPHIN) PO ONE (12:30)
[2024-11-23 14:27] VITALS: BP 110/66; TEMP 98.6; O2SAT 99
== END 2024-11-23 14:27 ==
LOC: ER 11:19
DX: K94.23 Gastrostomy malfunction (principal); E11.9 Type 2 diabetes mellitus without complications; I10 Essential (primary) hypertension; Z79.899 Other long term (current) drug therapy; Z86.79 Personal history of other diseases of the circulatory system
CPT/HCPCS: 99285; 74018; J7030; Q9963 ×2; A4223

== ENCOUNTER 2024-12-11 11:43 | Inpatient (IN) | payer OTHER ==
[~2024-12-11] VITALS: Ht 167.6 cm; Wt 86.9 kg
[2024-12-11] MEDS: CEFEPIME 1 GM in IV D5W 50 ML IV ONE (12:25)
[2024-12-11 12:38] LABS: ABG BASE EXCESS 5.6 mmol/L (-2.0-3.0); ABG OXYGEN SATURATION 95.7 % (94.0-98.0); ABG PCO2 37.3 mmHg (35.0-48.0); ABG PH 7.509 (7.350-7.450); ABG PO2 83.3 mmHg (83.0-108.0); ABG TOTAL HEMOGLOBIN 7.5 G/dL (13.5-17.5); COHb 0.3 % (0.5-1.5); MetHb 0.3 % (0.0-1.5); O2Hb 95.1 % (94.0-97.0); PEEP,BG 5 cm H2O; SITE, ABG LEFT RADIAL; VT, ABG 450 mL
[2024-12-11 12:45] LABS: CALCIUM, SERUM 8.4 mg/dL (8.5-10.1); CREATININE 0.7 mg/dL (0.6-1.3); POTASSIUM 3.5 mmol/L (3.5-5.1)
[2024-12-11 12:50] LABS: LACTIC ACID 1.9 mmol/L (0.4-2.0)
[2024-12-11 12:52] LABS: BASOPHILS # (AUTO) 0.1 K/uL (0.0-0.2); BASOPHILS % (AUTO) 0.5 % (0.0-2.0); EOSINOPHILS # (AUTO) 1.1 K/uL (0.0-0.7); EOSINOPHILS % (AUTO) 10.6 % (0.0-6.0); HEMATOCRIT 23 % (39-51); HEMOGLOBIN 7.3 g/dL (13.5-17.5); LYMPHOCYTES # (AUTO) 0.9 K/uL (0.8-4.8); MEAN CORPUSCULAR HEMOGLOBIN 25 PG (26.0-33.0); MEAN CORPUSCULAR HGB CONC 33 g/dl (31.0-36.0); MEAN CORPUSCULAR VOLUME 76 fL (80-96); MONOCYTES # (AUTO) 0.9 K/uL (0.1-1.30); NEUTROPHILS # (AUTO) 7.1 K/uL (1.8-8.9); NEUTROPHILS % (AUTO) 70.9 % (43.0-81.0); PLATELET COUNT (AUTO) 281 K/uL (150-450); RED BLOOD CELL COUNT(AUTO) 2.95 MIL/uL (4.5-6.0); RED CELL DISTRIBUTION WIDTH 18.2 % (11.5-15.0); WHITE BLOOD COUNT (AUTO) 10.1 K/uL (4.3-11.0)
[2024-12-11 12:56] LABS: ALBUMIN 1.6 g/dL (3.4-5.0); BILIRUBIN,DIRECT 0.3 mg/dL (0.0-0.2); BILIRUBIN,TOTAL 0.4 mg/dL (0.2-1.0); TOTAL PROTEIN, SERUM 8.4 g/dL (6.4-8.2)
[2024-12-11] MEDS: VANCOMYCIN 1 GM in IV D5W 250 ML IV ONE (13:02)
[2024-12-11 13:07] LABS: INR 1.14 (0.91-1.10); PARTIAL THROMBOPLASTIN TIME 31.3 SEC (24.3-34.3)
[2024-12-11] MEDS ORDERED: ACET325T53 GT (14:05)
[2024-12-11] MEDS ORDERED: BETA15CR3 TP (14:05)
[2024-12-11] MEDS ORDERED: NUT.237L30 GT (14:05)
[2024-12-11] MEDS ORDERED: FURO-145 GT (14:05)
[2024-12-11] MEDS ORDERED: ZINC50TA69 GT (14:05)
[2024-12-11] MEDS ORDERED: DOCU100C36 GT (14:05)
[2024-12-11] MEDS ORDERED: KETO15CR2 TP (14:05)
[2024-12-11] MEDS ORDERED: MAGN400O6 GT (14:05)
[2024-12-11] MEDS ORDERED: METO-295 GT (14:05)
[2024-12-11] MEDS ORDERED: ASCO500T10 GT (14:05)
[2024-12-11] MEDS ORDERED: INSU100V3 SQ (14:05)
[2024-12-11] MEDS ORDERED: AMIN30LI66 GT (14:05)
[2024-12-11] MEDS ORDERED: MULT-1275 GT (14:05)
[2024-12-11] MEDS ORDERED: AMLO-213 GT (14:05)
[2024-12-11] MEDS ORDERED: PANT40SU2 GT (14:05)
[2024-12-11] MEDS ORDERED: CHLO473M5 PO (14:05)
[2024-12-11] MEDS ORDERED: ACET-73 GT (14:05)
[2024-12-11] MEDS ORDERED: SIME80TA15 GT (14:05)
[2024-12-11 14:51] LABS: APPEARANCE,URINE CLEAR (CLEAR); BILIRUBIN,URINE NEGATIVE (NEGATIVE); BLOOD, URINE NEGATIVE Ery/uL (NEGATIVE); COLOR,URINE YELLOW (YELLOW); KETONES,URINE NEGATIVE (NEGATIVE); LEUKOCYTE ESTERASE ,URINE NEGATIVE (NEGATIVE); NITRITE, URINE NEGATIVE (NEGATIVE); PROTEIN,URINE NEGATIVE (NEGATIVE); UGLUCOSE NEGATIVE (NEGATIVE)
[2024-12-11 14:56] LABS: ADD URINE CULTURE NO; BACTERIA,URINE Rare /HPF (None Seen); SQUAMOUS EPITHELIAL CELL,UR None Seen /HPF (None Seen); WBC,URINE 0-2 /HPF (0-3)
[2024-12-11] MEDS ORDERED: MAG HYDROX/AL HYDROX/SIMETH 30 ML UDC PO PRN (15:00)
[2024-12-11] MEDS ORDERED: Z GUARD REMEDY 4 OZ OINT TP PRN (15:00)
[2024-12-11] MEDS ORDERED: ACETAMINOPHEN 325 MG TABLET PO PRN (15:00)
[2024-12-11] MEDS ORDERED: ONDANSETRON HCL/PF 4 MG/2 ML VIAL IVP PRN (15:00)
[2024-12-11] MEDS ORDERED: MAGNESIUM HYDROXIDE 30 ML UDC PO PRN (15:00)
[2024-12-11 15:57] LABS: IRON, SERUM 12 ug/dl (50-175); TOTAL IRON BINDING CAPACITY 210 ug/dl (250-450)
[2024-12-11 16:00] VITALS: BP 97/61; TEMP 98.4; O2SAT 96
[2024-12-11 20:00] VITALS: BP 159/87; TEMP 98.2; O2SAT 97
[2024-12-11] MEDS: CEFEPIME 2 GM in IV D5W 100 ML IV SCH (20:09)
[2024-12-11] MEDS: IV NS 0.9% 1,000 ML IV PRN (20:42)
[2024-12-12] VITALS: BP 122/78; TEMP 98.1; O2SAT 98
[2024-12-12] MEDS: VANCOMYCIN 1 GM in IV D5W 250ml IV SCH (00:19)
[2024-12-12 04:00] VITALS: BP 119/80; TEMP 98.2; O2SAT 98
[2024-12-12] MEDS: PANTOPRAZOLE 40 MG TABLET.DR PO SCH (06:44)
[2024-12-12 06:51] LABS: BASOPHILS % (AUTO) 0.4 % (0.0-2.0); EOSINOPHILS % (AUTO) 14.3 % (0.0-6.0); HEMATOCRIT 24 % (39-51); HEMOGLOBIN 7.6 g/dL (13.5-17.5); LYMPHOCYTES # (AUTO) 0.7 K/uL (0.8-4.8); LYMPHOCYTES % (AUTO) 10.5 % (20.0-44.0); MEAN CORPUSCULAR HEMOGLOBIN 25 PG (26.0-33.0); MEAN CORPUSCULAR HGB CONC 32 g/dl (31.0-36.0); MEAN CORPUSCULAR VOLUME 77 fL (80-96); MONOCYTES # (AUTO) 0.7 K/uL (0.1-1.30); MONOCYTES % (AUTO) 10.5 % (2.0-12.0); NEUTROPHILS # (AUTO) 4.5 K/uL (1.8-8.9); NEUTROPHILS % (AUTO) 64.3 % (43.0-81.0); PLATELET COUNT (AUTO) 274 K/uL (150-450); RED BLOOD CELL COUNT(AUTO) 3.07 MIL/uL (4.5-6.0)
[2024-12-12 07:21] LABS: CALCIUM, SERUM 8.6 mg/dL (8.5-10.1); CREATININE 0.6 mg/dL (0.6-1.3); MAGNESIUM 2.2 mg/dL (1.8-2.4); PHOSPHORUS 3.4 mg/dL (2.5-4.9); POTASSIUM 3.7 mmol/L (3.5-5.1)
[2024-12-12 08:00] VITALS: BP 105/66; TEMP 98.2; O2SAT 98
[2024-12-12 12:25] VITALS: BP 111/68; TEMP 98.2; O2SAT 98
[2024-12-12] MEDS: GLUCERNA 1.2 1,000 ML BOTTLE NG PRN (13:21)
[2024-12-12 16:00] VITALS: BP 114/64; TEMP 98; O2SAT 99
[2024-12-12 20:00] VITALS: BP 120/73; TEMP 98.6; O2SAT 99
[2024-12-13] VITALS: BP 130/76; TEMP 98.4; O2SAT 97; O2SAT 99
[2024-12-13 04:00] VITALS: BP 131/76; TEMP 98.6; O2SAT 98
[2024-12-13 06:23] LABS: OCCULT BLOOD STOOL NEGATIVE (NEGATIVE)
[2024-12-13 06:40] LABS: BASOPHILS % (AUTO) 0.6 % (0.0-2.0); EOSINOPHILS # (AUTO) 1.2 K/uL (0.0-0.7); EOSINOPHILS % (AUTO) 16.1 % (0.0-6.0); HEMATOCRIT 22 % (39-51); HEMOGLOBIN 7.1 g/dL (13.5-17.5); LYMPHOCYTES # (AUTO) 0.8 K/uL (0.8-4.8); LYMPHOCYTES % (AUTO) 10.1 % (20.0-44.0); MEAN CORPUSCULAR HEMOGLOBIN 25 PG (26.0-33.0); MEAN CORPUSCULAR HGB CONC 33 g/dl (31.0-36.0); MEAN CORPUSCULAR VOLUME 76 fL (80-96); MONOCYTES # (AUTO) 0.9 K/uL (0.1-1.30); MONOCYTES % (AUTO) 11.9 % (2.0-12.0); NEUTROPHILS # (AUTO) 4.7 K/uL (1.8-8.9); NEUTROPHILS % (AUTO) 61.3 % (43.0-81.0); PLATELET COUNT (AUTO) 285 K/uL (150-450); RED BLOOD CELL COUNT(AUTO) 2.88 MIL/uL (4.5-6.0); RED CELL DISTRIBUTION WIDTH 17.6 % (11.5-15.0); WHITE BLOOD COUNT (AUTO) 7.6 K/uL (4.3-11.0)
[2024-12-13 07:04] LABS: ALBUMIN 1.5 g/dL (3.4-5.0); BILIRUBIN,TOTAL 0.5 mg/dL (0.2-1.0); CALCIUM, SERUM 8.2 mg/dL (8.5-10.1); CREATININE 0.7 mg/dL (0.6-1.3); MAGNESIUM 2.1 mg/dL (1.8-2.4); PHOSPHORUS 3.4 mg/dL (2.5-4.9); POTASSIUM 3.9 mmol/L (3.5-5.1); TOTAL PROTEIN, SERUM 8.1 g/dL (6.4-8.2)
[2024-12-13 08:00] VITALS: BP 123/75; TEMP 98.6; O2SAT 99
[2024-12-13 12:00] VITALS: BP 145/75; TEMP 99; O2SAT 98
[2024-12-13] MEDS: BACITRACIN ZINC OINT PACKET 1 EA PACKET TP SCH (12:40)
[2024-12-13 16:00] VITALS: BP 126/69; TEMP 99; O2SAT 100
[2024-12-13] MEDS: FUROSEMIDE 40 MG/4 ML VIAL IV SCH (16:17)
[2024-12-13] MEDS: TRIAMCINOLONE ACETONIDE 0.1% CR 15 GM TUBE TP SCH (16:17)
[2024-12-13] MEDS: GLUCERNA 1.2 1,000 ML BOTTLE NG PRN (17:49)
[2024-12-13 20:00] VITALS: BP 136/80; TEMP 99; O2SAT 100
[2024-12-14] VITALS: BP 144/78; TEMP 99; O2SAT 100
[2024-12-14 04:00] VITALS: BP 134/81; TEMP 98.9; O2SAT 100
[2024-12-14 08:00] VITALS: BP 138/90; TEMP 98.3; O2SAT 98
[2024-12-14 12:00] VITALS: BP 122/83; TEMP 97.9; O2SAT 98
[2024-12-14 12:32] LABS: BASOPHILS % (AUTO) 0.6 % (0.0-2.0); EOSINOPHILS # (AUTO) 1.1 K/uL (0.0-0.7); EOSINOPHILS % (AUTO) 17.6 % (0.0-6.0); HEMATOCRIT 23 % (39-51); HEMOGLOBIN 7.3 g/dL (13.5-17.5); LYMPHOCYTES # (AUTO) 0.7 K/uL (0.8-4.8); LYMPHOCYTES % (AUTO) 11.5 % (20.0-44.0); MEAN CORPUSCULAR HEMOGLOBIN 25 PG (26.0-33.0); MEAN CORPUSCULAR HGB CONC 32 g/dl (31.0-36.0); MEAN CORPUSCULAR VOLUME 76 fL (80-96); MONOCYTES # (AUTO) 0.9 K/uL (0.1-1.30); MONOCYTES % (AUTO) 14.1 % (2.0-12.0); NEUTROPHILS # (AUTO) 3.4 K/uL (1.8-8.9); NEUTROPHILS % (AUTO) 56.2 % (43.0-81.0); PLATELET COUNT (AUTO) 256 K/uL (150-450); RED BLOOD CELL COUNT(AUTO) 2.97 MIL/uL (4.5-6.0); RED CELL DISTRIBUTION WIDTH 17.6 % (11.5-15.0)
[2024-12-14 12:57] LABS: ALBUMIN 1.5 g/dL (3.4-5.0); BILIRUBIN,TOTAL 0.5 mg/dL (0.2-1.0); CREATININE 0.7 mg/dL (0.6-1.3); PHOSPHORUS 2.5 mg/dL (2.5-4.9); POTASSIUM 3.5 mmol/L (3.5-5.1); TOTAL PROTEIN, SERUM 8.1 g/dL (6.4-8.2)
[2024-12-14 16:00] VITALS: BP 132/79; TEMP 98.5; O2SAT 98
[2024-12-14 20:00] VITALS: BP 145/90; TEMP 98.1; O2SAT 100
[2024-12-15] VITALS: BP 138/76; TEMP 98.1; O2SAT 99
[2024-12-15 04:00] VITALS: BP 142/85; TEMP 98.2; O2SAT 100
[2024-12-15 06:23] LABS: BASOPHILS % (AUTO) 0.3 % (0.0-2.0); EOSINOPHILS # (AUTO) 1.2 K/uL (0.0-0.7); EOSINOPHILS % (AUTO) 15.3 % (0.0-6.0); HEMATOCRIT 22 % (39-51); HEMOGLOBIN 7.3 g/dL (13.5-17.5); LYMPHOCYTES # (AUTO) 0.9 K/uL (0.8-4.8); LYMPHOCYTES % (AUTO) 11.2 % (20.0-44.0); MEAN CORPUSCULAR HEMOGLOBIN 25 PG (26.0-33.0); MEAN CORPUSCULAR HGB CONC 33 g/dl (31.0-36.0); MEAN CORPUSCULAR VOLUME 75 fL (80-96); MONOCYTES % (AUTO) 13.4 % (2.0-12.0); NEUTROPHILS # (AUTO) 4.6 K/uL (1.8-8.9); NEUTROPHILS % (AUTO) 59.8 % (43.0-81.0); PLATELET COUNT (AUTO) 276 K/uL (150-450); RED BLOOD CELL COUNT(AUTO) 2.97 MIL/uL (4.5-6.0); RED CELL DISTRIBUTION WIDTH 17.7 % (11.5-15.0); WHITE BLOOD COUNT (AUTO) 7.7 K/uL (4.3-11.0)
[2024-12-15 06:38] LABS: ALBUMIN 1.5 g/dL (3.4-5.0); BILIRUBIN,TOTAL 0.6 mg/dL (0.2-1.0); CALCIUM, SERUM 8.2 mg/dL (8.5-10.1); CREATININE 0.6 mg/dL (0.6-1.3); PHOSPHORUS 2.5 mg/dL (2.5-4.9); POTASSIUM 3.7 mmol/L (3.5-5.1); TOTAL PROTEIN, SERUM 8.1 g/dL (6.4-8.2)
[2024-12-15 08:00] VITALS: BP 145/89; TEMP 98.9; O2SAT 100
[2024-12-15 12:00] VITALS: BP 122/74; TEMP 98.2; O2SAT 98
[2024-12-15] MEDS ORDERED: VANCOMYCIN 1 GM in IV D5W 250ml IV SCH (13:00)
[2024-12-15 16:00] VITALS: BP 127/63; TEMP 97.9; O2SAT 98
[2024-12-15 20:00] VITALS: BP 120/75; TEMP 98.4; O2SAT 96
[2024-12-15] MEDS: VANCOMYCIN 750 MG in IV D5W 250 ML IV SCH (20:57)
[2024-12-16 00:57] VITALS: BP 121/81; TEMP 98.4; O2SAT 100
[2024-12-16 05:56] VITALS: BP 126/73; TEMP 98.4; O2SAT 100
[2024-12-16 08:00] VITALS: BP 121/72; TEMP 98.6; O2SAT 100
[2024-12-16 08:52] LABS: CALCIUM, SERUM 8.8 mg/dL (8.5-10.1); CREATININE 0.6 mg/dL (0.6-1.3); POTASSIUM 3.6 mmol/L (3.5-5.1)
[2024-12-16 12:00] VITALS: BP 137/75; TEMP 98.4; O2SAT 100
[2024-12-16 16:00] VITALS: BP 118/75; TEMP 98.6; O2SAT 100
[2024-12-16] MEDS: VANCOMYCIN 750 MG in IV D5W 250 ML IV SCH (18:30)
[2024-12-16 20:00] VITALS: BP 120/80; TEMP 98.6; O2SAT 100
[2024-12-17] VITALS (13 sets, daily range): BP systolic 106–132; BP diastolic 71–87; TEMP 97.3–99.1; O2SAT 98–100
[2024-12-17 06:08] LABS: BASOPHILS % (AUTO) 0.6 % (0.0-2.0); EOSINOPHILS # (AUTO) 1.2 K/uL (0.0-0.7); HEMATOCRIT 22 % (39-51); LYMPHOCYTES # (AUTO) 0.9 K/uL (0.8-4.8); LYMPHOCYTES % (AUTO) 13.6 % (20.0-44.0); MEAN CORPUSCULAR HEMOGLOBIN 24 PG (26.0-33.0); MEAN CORPUSCULAR HGB CONC 32 g/dl (31.0-36.0); MEAN CORPUSCULAR VOLUME 75 fL (80-96); MONOCYTES # (AUTO) 0.8 K/uL (0.1-1.30); MONOCYTES % (AUTO) 12.3 % (2.0-12.0); NEUTROPHILS # (AUTO) 3.4 K/uL (1.8-8.9); NEUTROPHILS % (AUTO) 54.5 % (43.0-81.0); PLATELET COUNT (AUTO) 246 K/uL (150-450); RED BLOOD CELL COUNT(AUTO) 2.88 MIL/uL (4.5-6.0); RED CELL DISTRIBUTION WIDTH 17.4 % (11.5-15.0); WHITE BLOOD COUNT (AUTO) 6.3 K/uL (4.3-11.0)
[2024-12-17 06:21] LABS: BILIRUBIN,TOTAL 0.5 mg/dL (0.2-1.0); CALCIUM, SERUM 8.2 mg/dL (8.5-10.1); CREATININE 0.7 mg/dL (0.6-1.3); PHOSPHORUS 2.3 mg/dL (2.5-4.9); POTASSIUM 3.4 mmol/L (3.5-5.1); TOTAL PROTEIN, SERUM 7.8 g/dL (6.4-8.2)
[2024-12-17 06:28] LABS: ALBUMIN 1.3 g/dL (3.4-5.0)
[2024-12-17 06:41] LABS: ANISOCYTOSIS 1+; BASOPHILS % (MANUAL) 0 % (0.0-2.0); EOSINOPHILS % (MANUAL) 13 % (0-4); LYMPHOCYTES % (MANUAL) 15 % (16-48); MONOCYTES % (MANUAL) 11 % (0-11.0); NEUTROPHILS % (MANUAL) 61 (42-76); OVALOCYTES FEW; PLATELET ESTIMATE ADEQUATE; STOMATOCYTES FEW
[2024-12-17] MEDS: POTASSIUM CHLORIDE 20 MEQ POWDER PACKET NG SCH (10:29)
[2024-12-17] MEDS ORDERED: NA PHOS,M-B/NA PHOS,DI-BA 1 EA ENEMA RC PRN (15:00)
[2024-12-17] MEDS ORDERED: BISACODYL SUPP (10 MG) 10 MG/SUPP.RECT SUPP.RECT RC PRN (15:00)
[2024-12-17] MEDS: NEUTRA PHOS 1 POWD.PACKET GT ONE ×2 (16:00→18:34)
[2024-12-17] MEDS ORDERED: IPRATROPIUM NEB FS 0.5 MG/2.5 ML AMPUL.NEB IH PRN (16:30)
[2024-12-17] MEDS ORDERED: ALBUTEROL FS 2.5 MG/3 ML VIAL.NEB IH PRN (16:30)
[2024-12-17] MEDS: ZINC SULFATE 220 MG CAPSULE GT SCH (18:30)
[2024-12-17] MEDS: ASCORBIC ACID 500 MG TABLET GT SCH (18:30)
[2024-12-17] MEDS: SIMETHICONE 80 MG TAB.CHEW GT SCH (18:30)
[2024-12-17] MEDS: MULTIVITAMINS,THERAGRAN 1 UDTAB TABLET GT SCH (18:30)
[2024-12-17] MEDS: PROSOURCE / PROSTAT (PYXIS) 30 ML UDC GT SCH (18:31)
[2024-12-17] MEDS: IPRATROPIUM NEB FS 0.5 MG/2.5 ML AMPUL.NEB IH SCH (19:31)
[2024-12-17] MEDS: ALBUTEROL FS 2.5 MG/0.5 ML VIAL.NEB IH SCH (19:31)
[2024-12-17] MEDS ORDERED: SIMVASTATIN 10 MG TABLET ONE (22:20)
[2024-12-17] MEDS: SIMVASTATIN 10 MG TABLET GT SCH (22:24)
[2024-12-18] VITALS: BP 134/88; TEMP 99.1; O2SAT 100
[2024-12-18 04:00] VITALS: BP 148/84; TEMP 98.8; O2SAT 99
[2024-12-18] MEDS: VANCOMYCIN HCL 1.25 GM in IV D5W 250 ML IV SCH (06:00)
[2024-12-18 07:07] LABS: CALCIUM, SERUM 8.2 mg/dL (8.5-10.1); CREATININE 0.7 mg/dL (0.6-1.3); PHOSPHORUS 2.4 mg/dL (2.5-4.9)
[2024-12-18 07:47] LABS: BASOPHILS # (AUTO) 0.1 K/uL (0.0-0.2); BASOPHILS % (AUTO) 0.8 % (0.0-2.0); EOSINOPHILS # (AUTO) 0.9 K/uL (0.0-0.7); EOSINOPHILS % (AUTO) 12.1 % (0.0-6.0); HEMATOCRIT 28 % (39-51); HEMOGLOBIN 9.2 g/dL (13.5-17.5); LYMPHOCYTES # (AUTO) 0.7 K/uL (0.8-4.8); LYMPHOCYTES % (AUTO) 9.6 % (20.0-44.0); MEAN CORPUSCULAR HEMOGLOBIN 25 PG (26.0-33.0); MEAN CORPUSCULAR HGB CONC 33 g/dl (31.0-36.0); MEAN CORPUSCULAR VOLUME 77 fL (80-96); MONOCYTES # (AUTO) 0.7 K/uL (0.1-1.30); MONOCYTES % (AUTO) 9.5 % (2.0-12.0); NEUTROPHILS # (AUTO) 5.1 K/uL (1.8-8.9); PLATELET COUNT (AUTO) 239 K/uL (150-450); RED BLOOD CELL COUNT(AUTO) 3.62 MIL/uL (4.5-6.0); RED CELL DISTRIBUTION WIDTH 17.3 % (11.5-15.0); WHITE BLOOD COUNT (AUTO) 7.5 K/uL (4.3-11.0)
[2024-12-18 08:00] VITALS: BP 145/85; TEMP 97.9; O2SAT 99
[2024-12-18] MEDS ORDERED: ACETAMINOPHEN 650 MG/20.3 ML UDC PO PRN (08:00)
[2024-12-18] MEDS ORDERED: MAGNESIUM HYDROXIDE 30 ML UDC GT PRN (08:02)
[2024-12-18] MEDS ORDERED: MAG HYDROX/AL HYDROX/SIMETH 30 ML UDC GT PRN (08:02)
[2024-12-18] MEDS: DOCUSATE SODIUM LIQ 100 MG/10 ML UDC GT SCH (08:58)
[2024-12-18] MEDS: PYRIDOXINE HCL 50 MG TABLET GT SCH (08:58)
[2024-12-18] MEDS: AMLODIPINE BESYLATE 10 MG TABLET GT SCH (08:58)
[2024-12-18] MEDS: FUROSEMIDE 20 MG TABLET GT SCH (08:58)
[2024-12-18] MEDS: HYDROCHLOROTHIAZIDE 25 MG TABLET GT SCH (08:58)
[2024-12-18] MEDS: BENAZEPRIL HCL 20 MG TABLET GT SCH (08:59)
[2024-12-18 12:00] VITALS: BP 98/68; TEMP 98; O2SAT 99
[2024-12-18] MEDS: NEUTRA PHOS 1 POWD.PACKET GT ONE (15:47)
[2024-12-18 16:00] VITALS: BP 126/82; TEMP 98.6; O2SAT 98
[2024-12-18 20:00] VITALS: BP 130/89; TEMP 98.5; O2SAT 98
[2024-12-19 00:52] VITALS: BP 124/83; TEMP 99; O2SAT 98
[2024-12-19] MEDS: ACETAMINOPHEN 650 MG/20.3 ML UDC GT PRN (02:35)
[2024-12-19 04:00] VITALS: BP 137/76; TEMP 99; O2SAT 99
[2024-12-19 06:57] LABS: CALCIUM, SERUM 8.4 mg/dL (8.5-10.1); CREATININE 0.9 mg/dL (0.6-1.3); PHOSPHORUS 2.3 mg/dL (2.5-4.9); POTASSIUM 3.9 mmol/L (3.5-5.1)
[2024-12-19] MEDS: PANTOPRAZOLE 40 MG/PACK PACK NG SCH (07:54)
[2024-12-19 08:00] VITALS: BP 105/61; TEMP 97.9; O2SAT 98
[2024-12-19 08:14] LABS: EOSINOPHILS # (AUTO) 1.1 K/uL (0.0-0.7); MONOCYTES # (AUTO) 0.9 K/uL (0.1-1.30); WHITE BLOOD COUNT (AUTO) 8.2 K/uL (4.3-11.0)
[2024-12-19 08:51] LABS: BASOPHILS % (AUTO) 0.3 % (0.0-2.0); HEMATOCRIT 28 % (39-51); HEMOGLOBIN 8.9 g/dL (13.5-17.5); LYMPHOCYTES % (AUTO) 12.6 % (20.0-44.0); MEAN CORPUSCULAR HEMOGLOBIN 25 PG (26.0-33.0); MEAN CORPUSCULAR HGB CONC 32 g/dl (31.0-36.0); MEAN CORPUSCULAR VOLUME 77 fL (80-96); MONOCYTES % (AUTO) 11.1 % (2.0-12.0); NEUTROPHILS # (AUTO) 5.2 K/uL (1.8-8.9); PLATELET COUNT (AUTO) 229 K/uL (150-450); RED BLOOD CELL COUNT(AUTO) 3.62 MIL/uL (4.5-6.0); RED CELL DISTRIBUTION WIDTH 17.8 % (11.5-15.0)
[2024-12-19 12:00] VITALS: BP 103/66; TEMP 98.4; O2SAT 99
[2024-12-19] MEDS ORDERED: DEXTROSE 50%-WATER 50 ML DISP.SYRIN IV PRN (12:00)
[2024-12-19] MEDS: INSULIN REGULAR, HUMAN 100 UNIT/ML 3 ML VIAL SQ PRN (12:25)
[2024-12-19] MEDS: BLOOD SUGAR DIAGNOSTIC 1 EACH STRIP IN SCH (12:29)
[2024-12-19 16:00] VITALS: BP 114/70; TEMP 98.5; O2SAT 99
[2024-12-19] MEDS: NEUTRA PHOS 1 POWD.PACKET GT ONE (16:42)
[2024-12-19 20:02] VITALS: BP 110/58; TEMP 99; O2SAT 99
[2024-12-20 00:53] VITALS: BP 117/69; TEMP 99.1; O2SAT 100
[2024-12-20 05:55] VITALS: BP 130/83; TEMP 99; O2SAT 99
[2024-12-20 07:00] LABS: BASOPHILS % (AUTO) 0.3 % (0.0-2.0); EOSINOPHILS # (AUTO) 1.1 K/uL (0.0-0.7); EOSINOPHILS % (AUTO) 11.8 % (0.0-6.0); HEMATOCRIT 27 % (39-51); HEMOGLOBIN 8.7 g/dL (13.5-17.5); LYMPHOCYTES # (AUTO) 0.9 K/uL (0.8-4.8); LYMPHOCYTES % (AUTO) 9.4 % (20.0-44.0); MEAN CORPUSCULAR HEMOGLOBIN 25 PG (26.0-33.0); MEAN CORPUSCULAR HGB CONC 32 g/dl (31.0-36.0); MEAN CORPUSCULAR VOLUME 77 fL (80-96); MONOCYTES # (AUTO) 0.9 K/uL (0.1-1.30); MONOCYTES % (AUTO) 9.5 % (2.0-12.0); NEUTROPHILS # (AUTO) 6.7 K/uL (1.8-8.9); PLATELET COUNT (AUTO) 206 K/uL (150-450); RED BLOOD CELL COUNT(AUTO) 3.52 MIL/uL (4.5-6.0); RED CELL DISTRIBUTION WIDTH 17.9 % (11.5-15.0); WHITE BLOOD COUNT (AUTO) 9.7 K/uL (4.3-11.0)
[2024-12-20 07:33] LABS: CALCIUM, SERUM 8.8 mg/dL (8.5-10.1); CREATININE 0.8 mg/dL (0.6-1.3); MAGNESIUM 1.9 mg/dL (1.8-2.4); PHOSPHORUS 2.3 mg/dL (2.5-4.9); POTASSIUM 4.2 mmol/L (3.5-5.1)
[2024-12-20 08:00] VITALS: BP 128/62; TEMP 99.1; O2SAT 98
[2024-12-20 12:00] VITALS: BP 132/71; TEMP 99.2; O2SAT 99
[2024-12-20] MEDS: NEUTRA PHOS 1 POWD.PACKET NG ONE (15:41)
[2024-12-20 16:00] VITALS: BP 127/69; TEMP 99.1; O2SAT 99
[2024-12-20 20:45] VITALS: BP 129/76; TEMP 99; O2SAT 99
[2024-12-21 00:31] VITALS: BP 135/80; TEMP 98.6; O2SAT 100
[2024-12-21 04:00] VITALS: BP 124/73; TEMP 98.8; O2SAT 99
[2024-12-21 07:43] LABS: BASOPHILS % (AUTO) 0.3 % (0.0-2.0); EOSINOPHILS # (AUTO) 0.9 K/uL (0.0-0.7); EOSINOPHILS % (AUTO) 9.2 % (0.0-6.0); HEMATOCRIT 29 % (39-51); HEMOGLOBIN 9.3 g/dL (13.5-17.5); LYMPHOCYTES % (AUTO) 10.2 % (20.0-44.0); MEAN CORPUSCULAR HEMOGLOBIN 25 PG (26.0-33.0); MEAN CORPUSCULAR HGB CONC 32 g/dl (31.0-36.0); MEAN CORPUSCULAR VOLUME 77 fL (80-96); MONOCYTES % (AUTO) 10.1 % (2.0-12.0); NEUTROPHILS % (AUTO) 70.2 % (43.0-81.0); PLATELET COUNT (AUTO) 190 K/uL (150-450); RED BLOOD CELL COUNT(AUTO) 3.72 MIL/uL (4.5-6.0); RED CELL DISTRIBUTION WIDTH 18.5 % (11.5-15.0); WHITE BLOOD COUNT (AUTO) 9.9 K/uL (4.3-11.0)
[2024-12-21 07:54] LABS: CALCIUM, SERUM 9.1 mg/dL (8.5-10.1); CREATININE 0.8 mg/dL (0.6-1.3); PHOSPHORUS 2.4 mg/dL (2.5-4.9); POTASSIUM 4.5 mmol/L (3.5-5.1)
[2024-12-21 08:00] VITALS: BP 122/71; TEMP 98.8; O2SAT 99
[2024-12-21 12:00] VITALS: BP 123/76; TEMP 99; O2SAT 99
[2024-12-21 16:00] VITALS: BP 122/77; TEMP 99.7; O2SAT 99
[2024-12-21] MEDS: NEUTRA PHOS 1 POWD.PACKET GT ONE (16:00)
[2024-12-21 20:00] VITALS: BP 108/62; TEMP 98.2; O2SAT 100
[2024-12-22] VITALS: BP 132/72; TEMP 97.8; O2SAT 100
[2024-12-22 04:00] VITALS: BP 135/89; TEMP 98.2; O2SAT 99
[2024-12-22 07:03] LABS: CALCIUM, SERUM 9.2 mg/dL (8.5-10.1); CREATININE 0.8 mg/dL (0.6-1.3); PHOSPHORUS 2.6 mg/dL (2.5-4.9); POTASSIUM 4.5 mmol/L (3.5-5.1)
[2024-12-22 08:00] VITALS: BP 134/79; TEMP 98.2; O2SAT 100
[2024-12-22 12:00] VITALS: BP 119/68; TEMP 98.4; O2SAT 100
[2024-12-22 16:00] VITALS: BP 113/64; TEMP 98.4; O2SAT 100
[2024-12-22 20:00] VITALS: BP 127/76; TEMP 98.2; O2SAT 100
[2024-12-23] VITALS: BP 134/77; TEMP 98.4; O2SAT 99
[2024-12-23 04:00] VITALS: BP 109/65; TEMP 99.3; O2SAT 99
[2024-12-23 07:19] LABS: CALCIUM, SERUM 8.8 mg/dL (8.5-10.1); POTASSIUM 4.4 mmol/L (3.5-5.1)
[2024-12-23 08:00] VITALS: BP 118/64; TEMP 98.1; O2SAT 99
[2024-12-23 12:00] VITALS: BP 109/62; TEMP 98.6; O2SAT 100
== END 2024-12-23 14:55 | DRG 207 ==
LOC: ER 11:45 → TELE-TD 14:23 → TELE1 12-12 10:08
PROC: 5A1955Z Respiratory Ventilation, Greater than 96 Consecutive Hours (ICD-10-PCS; principal; 2024-12-11)
PROC: 30233N1 Transfusion of Nonautologous Red Blood Cells into Peripheral Vein, Percutaneous Approach (ICD-10-PCS; 2024-12-17)
DX: J15.69 Pneumonia due to other Gram-negative bacteria (principal); E43 Unspecified severe protein-calorie malnutrition; J96.21 Acute and chronic respiratory failure with hypoxia; Z99.11 Dependence on respirator [ventilator] status; I50.32 Chronic diastolic (congestive) heart failure; I82.612 Acute embolism and thrombosis of superficial veins of left upper extremity; G93.49 Other encephalopathy; K92.2 Gastrointestinal hemorrhage, unspecified; J90 Pleural effusion, not elsewhere classified; J98.11 Atelectasis; L97.912 Non-pressure chronic ulcer of unspecified part of right lower leg with fat layer exposed; D68.59 Other primary thrombophilia; D50.9 Iron deficiency anemia, unspecified; Z93.1 Gastrostomy status; Z93.0 Tracheostomy status; R13.10 Dysphagia, unspecified; I11.0 Hypertensive heart disease with heart failure; Z20.822 Contact with and (suspected) exposure to COVID-19; E11.40 Type 2 diabetes mellitus with diabetic neuropathy, unspecified; E78.5 Hyperlipidemia, unspecified; M62.462 Contracture of muscle, left lower leg; M62.461 Contracture of muscle, right lower leg; Z79.4 Long term (current) use of insulin; Y95 Nosocomial condition; E88.09 Other disorders of plasma-protein metabolism, not elsewhere classified; E11.622 Type 2 diabetes mellitus with other skin ulcer; E87.6 Hypokalemia; L98.9 Disorder of the skin and subcutaneous tissue, unspecified; L89.012 Pressure ulcer of right elbow, stage 2; R56.9 Unspecified convulsions; Z79.01 Long term (current) use of anticoagulants; Z79.51 Long term (current) use of inhaled steroids; Z79.899 Other long term (current) drug therapy; S01.312A Laceration without foreign body of left ear, initial encounter; X58.XXXA Exposure to other specified factors, initial encounter; Y92.9 Unspecified place or not applicable; B86 Scabies; R79.89 Other specified abnormal findings of blood chemistry; S91.111A Laceration without foreign body of right great toe without damage to nail, initial encounter
CPT/HCPCS: 31720; 36415; 36600; 71045-TC; 74018; 80048-TC; 80053-TC; 80076-TC; 80202-TC; 81001; 82272-TC; 82728-TC; 82803-TC; 82962-TC; 83540-TC; 83605-TC; 83735-TC; 83880; 84100-TC; 85025-TC; 85730-TC; 86850-TC; 87040-TC; 87081-TC; 93307-TC; 93971-TC; 94002-TC; 94003-TC; 94760-TC; 94762-TC; 94799-TC; 99082-TC; A4223; G0378; J0692; J1815; J1940; J3370; J3371; J7030; J7050; J7060; P9016

== ENCOUNTER 2025-01-29 20:06 | Emergency (ER) | payer OTHER, MEDICAID ==
[~2025-01-29] VITALS: Ht 172.7 cm; Wt 76.7 kg
[~2025-01-29 20:06] MED LIST changes: +ACET-73 GT; +ACET325T53 GT; +AMLO-213 GT; +ASCO500T10 GT; +BETA15CR3 TP; +CHLO473M5 PO; +DOCU100C36 GT; +FURO-145 GT; +INSU100V3 SQ; +KETO15CR2 TP; +METO-295 GT; +MULT-1275 GT; +PANT40SU2 GT; +SIME80TA15 GT; +ZINC50TA69 GT
[2025-01-29 21:07] LABS: BASOPHILS % (AUTO) 0.3 % (0.0-2.0); EOSINOPHILS # (AUTO) 0.8 K/uL (0.0-0.7); EOSINOPHILS % (AUTO) 11.1 % (0.0-6.0); HEMATOCRIT 22 % (39-51); HEMOGLOBIN 7.1 g/dL (13.5-17.5); LYMPHOCYTES # (AUTO) 0.3 K/uL (0.8-4.8); LYMPHOCYTES % (AUTO) 4.1 % (20.0-44.0); MEAN CORPUSCULAR HEMOGLOBIN 24 PG (26.0-33.0); MEAN CORPUSCULAR HGB CONC 32 g/dl (31.0-36.0); MEAN CORPUSCULAR VOLUME 76 fL (80-96); MONOCYTES # (AUTO) 0.6 K/uL (0.1-1.30); MONOCYTES % (AUTO) 7.8 % (2.0-12.0); NEUTROPHILS # (AUTO) 5.7 K/uL (1.8-8.9); NEUTROPHILS % (AUTO) 76.7 % (43.0-81.0); PLATELET COUNT (AUTO) 190 K/uL (150-450); RED BLOOD CELL COUNT(AUTO) 2.92 MIL/uL (4.5-6.0); RED CELL DISTRIBUTION WIDTH 18.5 % (11.5-15.0); WHITE BLOOD COUNT (AUTO) 7.5 K/uL (4.3-11.0)
[2025-01-29 21:20] LABS: INR 1.23 (0.91-1.10); PARTIAL THROMBOPLASTIN TIME 32.7 SEC (24.3-34.3); PROTHROMBIN TIME 12.9 SECS (9.2-11.1)
[2025-01-29 21:21] LABS: CALCIUM, SERUM 9.5 mg/dL (8.5-10.1); CARBON DIOXIDE 30 mmol/L (21-32); CHLORIDE 110 mmol/L (98-107); CREATININE 1.1 mg/dL (0.6-1.3); GLUCOSE 217 mg/dL (74-106); POTASSIUM 4.8 mmol/L (3.5-5.1); SODIUM SERUM 144 mmol/L (136-145); UREA NITROGEN, BLOOD 36 mg/dL (7-18)
[2025-01-29 21:26] LABS: ALANINE AMINOTRANSFERASE 16 U/L (12-78); ALBUMIN 1.5 g/dL (3.4-5.0); ALKALINE PHOSPHATASE 274 U/L (46-116); ASPARTATE AMINOTRANSFERASE 31 U/L (15-37); BILIRUBIN,DIRECT 0.2 mg/dL (0.0-0.2); BILIRUBIN,TOTAL 0.4 mg/dL (0.2-1.0)
[2025-01-29] MEDS ORDERED: IOHEXOL-300 100 ML VIAL IV ONE (21:56)
[2025-01-29] MEDS ORDERED: IV NS 0.9% 250 ML IV ONE (21:56)
[2025-01-30 16:31] VITALS: BP 132/82; TEMP 98.7; O2SAT 99
== END 2025-01-30 16:34 ==
LOC: ER 20:20
DX: D64.9 Anemia, unspecified (principal); I10 Essential (primary) hypertension; E11.9 Type 2 diabetes mellitus without complications; J81.1 Chronic pulmonary edema; Z79.899 Other long term (current) drug therapy; R00.0 Tachycardia, unspecified
CPT/HCPCS: 99285; 74177; 71045; 85025; 80048; 80076; 36415; 84484; 85730; 86850; 83880; 31720 ×2; 94002; 94762; 94799; J7050; Q9967

== ENCOUNTER 2025-02-26 23:37 | Inpatient (IN) | payer OTHER ==
[~2025-02-26] VITALS: Ht 149.9 cm; Wt 89.8 kg
[2025-02-27] VITALS (51 sets, daily range): BP systolic 77–134; BP diastolic 38–112; TEMP 98.5–98.8; O2SAT 98–100
[2025-02-27] MEDS ORDERED: ONDANSETRON HCL/PF 4 MG/2 ML VIAL ONE (00:20)
[2025-02-27] MEDS: ONDANSETRON HCL/PF 4 MG/2 ML VIAL IVP ONE (00:30)
[2025-02-27 00:53] LABS: BASOPHILS % (AUTO) 0.1 % (0.0-2.0); EOSINOPHILS % (AUTO) 0.1 % (0.0-6.0); HEMATOCRIT 25 % (39-51); HEMOGLOBIN 8.2 g/dL (13.5-17.5); LYMPHOCYTES # (AUTO) 0.7 K/uL (0.8-4.8); MEAN CORPUSCULAR HEMOGLOBIN 25 PG (26.0-33.0); MEAN CORPUSCULAR HGB CONC 32 g/dl (31.0-36.0); MEAN CORPUSCULAR VOLUME 77 fL (80-96); MONOCYTES # (AUTO) 1.1 K/uL (0.1-1.30); MONOCYTES % (AUTO) 4.6 % (2.0-12.0); NEUTROPHILS # (AUTO) 21.2 K/uL (1.8-8.9); NEUTROPHILS % (AUTO) 92.2 % (43.0-81.0); PLATELET COUNT (AUTO) 251 K/uL (150-450); RED BLOOD CELL COUNT(AUTO) 3.26 MIL/uL (4.5-6.0); RED CELL DISTRIBUTION WIDTH 19.7 % (11.5-15.0)
[2025-02-27 01:04] LABS: CALCIUM, SERUM 10.1 mg/dL (8.5-10.1); CREATININE 2.3 mg/dL (0.6-1.3); POTASSIUM 5.9 mmol/L (3.5-5.1)
[2025-02-27 01:10] LABS: ALBUMIN 1.5 g/dL (3.4-5.0); BILIRUBIN,DIRECT 0.7 mg/dL (0.0-0.2); BILIRUBIN,TOTAL 1.3 mg/dL (0.2-1.0); TOTAL PROTEIN, SERUM 9.8 g/dL (6.4-8.2)
[2025-02-27] MEDS: IV NS 0.9% 500 ML BAG IV ONE (01:22)
[2025-02-27] MEDS: CALCIUM CHLORIDE 1,000 MG/10 ML DISP.SYRIN IV ONE (01:30)
[2025-02-27] MEDS: SODIUM BICARBONATE SYR 50 MEQ/50 ML DISP.SYRIN IV ONE (01:30)
[2025-02-27] MEDS: ALBUTEROL FS 2.5 MG/3 ML VIAL.NEB NEB ONE (01:34)
[2025-02-27] MEDS ORDERED: ALBUTEROL FS 2.5 MG/3 ML VIAL.NEB ONE (01:35)
[2025-02-27 01:38] LABS: APPEARANCE,URINE CLEAR (CLEAR); BILIRUBIN,URINE 1+ (NEGATIVE); BLOOD, URINE TRACE-INTA Ery/uL (NEGATIVE); COLOR,URINE DARK YELLOW (YELLOW); KETONES,URINE TRACE mg/dL (NEGATIVE); LEUKOCYTE ESTERASE ,URINE TRACE (NEGATIVE); NITRITE, URINE POSITIVE (NEGATIVE); PROTEIN,URINE TRACE mg/dl (NEGATIVE); UGLUCOSE NEGATIVE (NEGATIVE)
[2025-02-27 01:41] LABS: ADD URINE CULTURE YES; BACTERIA,URINE Moderate /HPF (None Seen); SQUAMOUS EPITHELIAL CELL,UR Rare /HPF (None Seen)
[2025-02-27] MEDS ORDERED: SODIUM BICARBONATE SYR 50 MEQ/50 ML DISP.SYRIN ONE (01:43)
[2025-02-27] MEDS ORDERED: PIPERACI/TAZO 3.375GM/D5W 50ML PB IV ONE (02:06)
[2025-02-27] MEDS ORDERED: ONDANSETRON HCL/PF 4 MG/2 ML VIAL IVP PRN (02:30)
[2025-02-27] MEDS ORDERED: MAGNESIUM HYDROXIDE 30 ML UDC PO PRN (02:30)
[2025-02-27] MEDS ORDERED: ACETAMINOPHEN 325 MG TABLET PO PRN ×2 (02:30→10:30)
[2025-02-27] MEDS ORDERED: MAG HYDROX/AL HYDROX/SIMETH 30 ML UDC PO PRN (02:30)
[2025-02-27] MEDS: PIPERACILLIN /TAZOBACTAM 3.375 G in IV D5W 50 ML IV ONE (02:33)
[2025-02-27 02:38] LABS: LACTIC ACID 10.6 mmol/L (0.4-2.0)
[2025-02-27] MEDS: IV NS 0.9% 1,000 ML BAG IV ONE (03:31)
[2025-02-27 05:49] LABS: BASOPHILS % (AUTO) 0.1 % (0.0-2.0); EOSINOPHILS # (AUTO) 0.1 K/uL (0.0-0.7); EOSINOPHILS % (AUTO) 0.4 % (0.0-6.0); HEMATOCRIT 24 % (39-51); HEMOGLOBIN 7.5 g/dL (13.5-17.5); LYMPHOCYTES # (AUTO) 0.7 K/uL (0.8-4.8); LYMPHOCYTES % (AUTO) 2.9 % (20.0-44.0); MEAN CORPUSCULAR HEMOGLOBIN 24 PG (26.0-33.0); MEAN CORPUSCULAR HGB CONC 31 g/dl (31.0-36.0); MEAN CORPUSCULAR VOLUME 79 fL (80-96); MONOCYTES # (AUTO) 1.5 K/uL (0.1-1.30); NEUTROPHILS # (AUTO) 22.4 K/uL (1.8-8.9); NEUTROPHILS % (AUTO) 90.6 % (43.0-81.0); PLATELET COUNT (AUTO) 281 K/uL (150-450); RED BLOOD CELL COUNT(AUTO) 3.07 MIL/uL (4.5-6.0); RED CELL DISTRIBUTION WIDTH 19.7 % (11.5-15.0); WHITE BLOOD COUNT (AUTO) 24.7 K/uL (4.3-11.0)
[2025-02-27 05:59] LABS: CALCIUM, SERUM 10.1 mg/dL (8.5-10.1); CREATININE 2.4 mg/dL (0.6-1.3); MAGNESIUM 2.7 mg/dL (1.8-2.4); PHOSPHORUS 6.6 mg/dL (2.5-4.9); POTASSIUM 5.4 mmol/L (3.5-5.1)
[2025-02-27] MEDS: NOREPINEPHRINE 8 MG in IV D5W 242 ML IV PRN (06:30)
[2025-02-27] MEDS: VANCOMYCIN HCL 1.25 GM in IV D5W 250 ML IV ONE (07:41)
[2025-02-27 08:44] LABS: ABG BASE EXCESS -3.3 mmol/L (-2.0-3.0); ABG OXYGEN SATURATION 97.9 % (94.0-98.0); ABG PCO2 43.1 mmHg (35.0-48.0); ABG PH 7.333 (7.350-7.450); ABG PO2 108.1 mmHg (83.0-108.0); ABG TOTAL HEMOGLOBIN 8.4 G/dL (13.5-17.5); COHb 0.6 % (0.5-1.5); MetHb 0.4 % (0.0-1.5); O2Hb 96.9 % (94.0-97.0); PEEP,BG 5 cm H2O; SITE, ABG RIGHT RADIAL; VT, ABG 450 mL
[2025-02-27] MEDS ORDERED: ONDA4TAB5 GT (09:26)
[2025-02-27] MEDS ORDERED: FERR220S2 GT (09:26)
[2025-02-27] MEDS ORDERED: FLUO30CR11 TP (09:26)
[2025-02-27] MEDS ORDERED: ZINC220C6 GT (09:26)
[2025-02-27] MEDS ORDERED: CEFE1VIA3 IV (09:26)
[2025-02-27] MEDS ORDERED: MUPI22OI2 TP (09:26)
[2025-02-27 09:33] LABS: INR 1.48 (0.91-1.10); PROTHROMBIN TIME 15.3 SECS (9.2-11.1)
[2025-02-27] MEDS ORDERED: PIPERACILLIN /TAZOBACTAM 3.375 G in IV D5W 50 ML IV SCH (10:00)
[2025-02-27] MEDS: PANTOPRAZOLE 40 MG VIAL IV SCH (10:24)
[2025-02-27] MEDS: HEPARIN SODIUM, PORCINE 5000 UNITS/1 ML VIAL SQ SCH (10:25)
[2025-02-27] MEDS ORDERED: BISACODYL SUPP (10 MG) 10 MG/SUPP.RECT SUPP.RECT RC PRN (10:30)
[2025-02-27] MEDS: SODIUM ZIRCONIUM CYCLOSILICATE 10 GM POWD.PACK GT SCH (10:30)
[2025-02-27] MEDS ORDERED: NA PHOS,M-B/NA PHOS,DI-BA 1 EA ENEMA RC PRN (10:30)
[2025-02-27] MEDS ORDERED: Medication Not On Formulary EA (Ondansetron Hcl (Zofran) 4 MG) GT PRN (10:30)
[2025-02-27] MEDS ORDERED: MAGNESIUM HYDROXIDE 30 ML UDC GT PRN (10:30)
[2025-02-27] MEDS ORDERED: DEXTROSE 50%-WATER 50 ML DISP.SYRIN IV PRN (11:00)
[2025-02-27] MEDS: BLOOD SUGAR DIAGNOSTIC 1 EACH STRIP VI SCH (12:00)
[2025-02-27] MEDS: SIMETHICONE 80 MG TAB.CHEW GT SCH (12:03)
[2025-02-27] MEDS: HYDROCORTISONE SOD SUCCINATE 100 MG/2 ML VIAL IV SCH (12:03)
[2025-02-27] MEDS: PROPOFOL 100 ML IV PRN (12:06)
[2025-02-27] MEDS: PIPERACILLIN /TAZOBACTAM 2.25 G in IV D5W 50 ML IV SCH (13:18)
[2025-02-27] MEDS: IPRATROPIUM NEB FS 0.5 MG/2.5 ML AMPUL.NEB NEB SCH (13:30)
[2025-02-27] MEDS ORDERED: ALBUTEROL FS 2.5 MG/3 ML VIAL.NEB NEB PRN (13:30)
[2025-02-27] MEDS ORDERED: IPRATROPIUM NEB FS 0.5 MG/2.5 ML AMPUL.NEB NEB PRN (13:30)
[2025-02-27] MEDS: ALBUTEROL FS 2.5 MG/3 ML VIAL.NEB NEB SCH (13:30)
[2025-02-27 15:03] LABS: PROTEIN, BODY FLUID 4.5 G/DL
[2025-02-27 15:06] LABS: APPEARANCE,SPUN,BODY FLUID CLEAR (CLEAR); TOTAL VOLUME,BODY FLUID 5700 mL; WBC, BODY FLUID 12964 /cu. mm. (0-200)
[2025-02-27 15:16] LABS: CALCIUM, SERUM 10.2 mg/dL (8.5-10.1); CREATININE 2.4 mg/dL (0.6-1.3); POTASSIUM 5.5 mmol/L (3.5-5.1)
[2025-02-27] MEDS: IV D5/ 0.9% NACL 1,000 ML IV PRN (17:45)
[2025-02-27] MEDS: CHLORHEXIDINE GLUCONATE 15 ML UDC MM SCH (19:04)
[2025-02-27] MEDS: *INSULIN REGULAR(HUMULIN R)HUM 100 UNIT/ML VIAL SQ PRN (22:05)
[2025-02-27 23:27] LABS: MONOCYTES,BODY FLUID 5 %
[2025-02-28] VITALS (99 sets, daily range): BP systolic 81–135; BP diastolic 46–86; TEMP 98–99.9; O2SAT 97–100
[2025-02-28 04:37] LABS: LYMPHOCYTES # (AUTO) 0.3 K/uL (0.8-4.8); LYMPHOCYTES % (AUTO) 2.3 % (20.0-44.0); MEAN CORPUSCULAR HEMOGLOBIN 24 PG (26.0-33.0); MEAN CORPUSCULAR HGB CONC 30 g/dl (31.0-36.0); MEAN CORPUSCULAR VOLUME 81 fL (80-96); MONOCYTES # (AUTO) 0.8 K/uL (0.1-1.30); MONOCYTES % (AUTO) 5.4 % (2.0-12.0); NEUTROPHILS # (AUTO) 12.8 K/uL (1.8-8.9); NEUTROPHILS % (AUTO) 92.3 % (43.0-81.0); PLATELET COUNT (AUTO) 195 K/uL (150-450); RED BLOOD CELL COUNT(AUTO) 2.46 MIL/uL (4.5-6.0); RED CELL DISTRIBUTION WIDTH 20.2 % (11.5-15.0); WHITE BLOOD COUNT (AUTO) 13.9 K/uL (4.3-11.0)
[2025-02-28 04:43] LABS: HEMATOCRIT 20 % (39-51)
[2025-02-28 05:28] LABS: ANISOCYTOSIS 1+; BASOPHILS % (MANUAL) 0 % (0.0-2.0); EOSINOPHILS % (MANUAL) 0 % (0-4); LYMPHOCYTES % (MANUAL) 5 % (16-48); MONOCYTES % (MANUAL) 7 % (0-11.0); NEUTROPHILS % (MANUAL) 88 (42-76); PLATELET ESTIMATE ADEQUATE
[2025-02-28 06:26] LABS: BILIRUBIN,TOTAL 0.7 mg/dL (0.2-1.0); CALCIUM, SERUM 9.6 mg/dL (8.5-10.1); CREATININE 2.2 mg/dL (0.6-1.3); MAGNESIUM 2.6 mg/dL (1.8-2.4); PHOSPHORUS 4.6 mg/dL (2.5-4.9); TOTAL PROTEIN, SERUM 8.7 g/dL (6.4-8.2)
[2025-02-28 06:41] LABS: ALBUMIN 1.3 g/dL (3.4-5.0)
[2025-02-28] MEDS: FERROUS SULFATE UDC 300 MG/5 ML UDC GT SCH (08:20)
[2025-02-28] MEDS: PANTOPRAZOLE 40 MG/PACK PACK GT SCH (08:23)
[2025-02-28] MEDS: DOCUSATE SODIUM 100 MG CAPSULE PO SCH (08:23)
[2025-02-28] MEDS: Z GUARD REMEDY 4 OZ OINT TP SCH (08:24)
[2025-02-28] MEDS: PANTOPRAZOLE 40 MG VIAL IV SCH (09:42)
[2025-02-28] MEDS: INSULIN REGULAR, HUMAN 100 UNIT/ML 3 ML VIAL SQ PRN ×2 (09:43→17:09)
[2025-02-28] MEDS ORDERED: DEXTROSE 50%-WATER 50 ML DISP.SYRIN IV PRN (12:30)
[2025-02-28 15:42] LABS: OCCULT BLOOD STOOL NEGATIVE (NEGATIVE)
[2025-02-28 15:57] LABS: CREATININE, URINE 37.5 MG/DL (30.0-125.0); URINE TOTAL PROTEIN 64.6 mg/dL (0-11.9)
[2025-02-28] MEDS: BLOOD SUGAR DIAGNOSTIC 1 EACH STRIP IN SCH (16:38)
[2025-02-28] MEDS: VANCOMYCIN 1 GM in IV D5W 250 ML IV SCH (20:43)
[2025-03-01] VITALS (70 sets, daily range): BP systolic 91–131; BP diastolic 56–79; TEMP 98–98.5; O2SAT 97–100
[2025-03-01 02:11] LABS: PTH, INTACT 8 pg/mL (15-65)
[2025-03-01 04:35] LABS: BASOPHILS % (AUTO) 0.1 % (0.0-2.0); HEMATOCRIT 24 % (39-51); HEMOGLOBIN 7.8 g/dL (13.5-17.5); LYMPHOCYTES # (AUTO) 0.3 K/uL (0.8-4.8); LYMPHOCYTES % (AUTO) 2.5 % (20.0-44.0); MEAN CORPUSCULAR HEMOGLOBIN 26 PG (26.0-33.0); MEAN CORPUSCULAR HGB CONC 32 g/dl (31.0-36.0); MEAN CORPUSCULAR VOLUME 79 fL (80-96); MONOCYTES # (AUTO) 0.7 K/uL (0.1-1.30); MONOCYTES % (AUTO) 6.3 % (2.0-12.0); NEUTROPHILS % (AUTO) 91.1 % (43.0-81.0); PLATELET COUNT (AUTO) 156 K/uL (150-450); RED BLOOD CELL COUNT(AUTO) 3.03 MIL/uL (4.5-6.0); RED CELL DISTRIBUTION WIDTH 19.7 % (11.5-15.0)
[2025-03-01 04:47] LABS: CALCIUM, SERUM 9.4 mg/dL (8.5-10.1); CREATININE 1.9 mg/dL (0.6-1.3)
[2025-03-01 08:20] LABS: ABG BASE EXCESS 3.7 mmol/L (-2.0-3.0); ABG PCO2 38.4 mmHg (35.0-48.0); ABG PH 7.474 (7.350-7.450); ABG TOTAL HEMOGLOBIN 8.1 G/dL (13.5-17.5); COHb 0.6 % (0.5-1.5); MetHb 0.4 % (0.0-1.5); PEEP,BG 0 cm H2O; SITE, ABG RIGHT RADIAL; VT, ABG 475 mL
[2025-03-01] MEDS: PANTOPRAZOLE 40 MG/PACK PACK NG SCH (08:40)
[2025-03-01] MEDS: POTASSIUM CL. PREMIX PERIPHER. 50 ML IV SCH (09:14)
[2025-03-01] MEDS: IV 1/2NS 1000 ML 1,000 ML IV SCH (09:33)
[2025-03-01] MEDS: HYDROCORTISONE SOD SUCCINATE 100 MG/2 ML VIAL IV SCH (09:35)
[2025-03-01] MEDS: MUPIROCIN OINT 2% 22 GM TUBE NS SCH (10:13)
[2025-03-01] MEDS: GLUCERNA 1.2 1,000 ML BOTTLE NG PRN (12:30)
[2025-03-01 12:50] LABS: ABG BASE EXCESS 2.1 mmol/L (-2.0-3.0); ABG OXYGEN SATURATION 97.4 % (94.0-98.0); ABG PO2 102.5 mmHg (83.0-108.0); ABG TOTAL HEMOGLOBIN 8.8 G/dL (13.5-17.5); COHb 0.2 % (0.5-1.5); MetHb 0.3 % (0.0-1.5); O2Hb 96.9 % (94.0-97.0); PEEP,BG 5 cm H2O; SITE, ABG RIGHT BRACHIAL; VT, ABG 400 mL
[2025-03-01 14:02] LABS: LACTIC ACID 3.1 mmol/L (0.4-2.0)
[2025-03-01 16:14] LABS: BILIRUBIN,DIRECT 0.3 mg/dL (0.0-0.2)
[2025-03-01 16:48] LABS: LACTIC ACID REFLEX 2.2 mmol/L (0.4-1.9)
[2025-03-02] VITALS (17 sets, daily range): BP systolic 97–134; BP diastolic 60–84; TEMP 97.5–98; O2SAT 96–100
[2025-03-02 07:23] LABS: BASOPHILS % (AUTO) 0.2 % (0.0-2.0); HEMATOCRIT 26 % (39-51); LYMPHOCYTES # (AUTO) 0.3 K/uL (0.8-4.8); LYMPHOCYTES % (AUTO) 2.8 % (20.0-44.0); MEAN CORPUSCULAR HEMOGLOBIN 25 PG (26.0-33.0); MEAN CORPUSCULAR HGB CONC 31 g/dl (31.0-36.0); MEAN CORPUSCULAR VOLUME 80 fL (80-96); MONOCYTES # (AUTO) 0.6 K/uL (0.1-1.30); MONOCYTES % (AUTO) 5.6 % (2.0-12.0); NEUTROPHILS # (AUTO) 9.3 K/uL (1.8-8.9); NEUTROPHILS % (AUTO) 91.4 % (43.0-81.0); PLATELET COUNT (AUTO) 133 K/uL (150-450); RED BLOOD CELL COUNT(AUTO) 3.25 MIL/uL (4.5-6.0); RED CELL DISTRIBUTION WIDTH 19.4 % (11.5-15.0); WHITE BLOOD COUNT (AUTO) 10.1 K/uL (4.3-11.0)
[2025-03-02 07:42] LABS: CALCIUM, SERUM 9.5 mg/dL (8.5-10.1); CREATININE 1.6 mg/dL (0.6-1.3); POTASSIUM 3.4 mmol/L (3.5-5.1)
[2025-03-02] MEDS: HYDROCORTISONE SOD SUCCINATE 100 MG/2 ML VIAL IV SCH (08:40)
[2025-03-02] MEDS: POTASSIUM CL. PREMIX PERIPHER. 50 ML IV SCH (11:05)
[2025-03-02 13:52] LABS: ABG BASE EXCESS 3.9 mmol/L (-2.0-3.0); ABG OXYGEN SATURATION 96.9 % (94.0-98.0); ABG PCO2 49.9 mmHg (35.0-48.0); ABG PH 7.389 (7.350-7.450); ABG PO2 91.9 mmHg (83.0-108.0); ABG TOTAL HEMOGLOBIN 9.1 G/dL (13.5-17.5); COHb 0.1 % (0.5-1.5); MetHb 0.3 % (0.0-1.5); O2Hb 96.5 % (94.0-97.0); PEEP,BG 5 cm H2O; SITE, ABG RIGHT RADIAL
[2025-03-02] MEDS: GLUCERNA 1.2 1,000 ML BOTTLE NG PRN (15:12)
[2025-03-03 00:52] VITALS: BP 140/83; TEMP 98.1; O2SAT 97
[2025-03-03 07:02] LABS: BASOPHILS % (AUTO) 0.2 % (0.0-2.0); EOSINOPHILS % (AUTO) 0.1 % (0.0-6.0); HEMATOCRIT 27 % (39-51); HEMOGLOBIN 8.3 g/dL (13.5-17.5); LYMPHOCYTES # (AUTO) 0.4 K/uL (0.8-4.8); LYMPHOCYTES % (AUTO) 3.6 % (20.0-44.0); MEAN CORPUSCULAR HEMOGLOBIN 25 PG (26.0-33.0); MEAN CORPUSCULAR HGB CONC 31 g/dl (31.0-36.0); MEAN CORPUSCULAR VOLUME 80 fL (80-96); MONOCYTES # (AUTO) 0.8 K/uL (0.1-1.30); MONOCYTES % (AUTO) 8.1 % (2.0-12.0); NEUTROPHILS # (AUTO) 9.2 K/uL (1.8-8.9); PLATELET COUNT (AUTO) 146 K/uL (150-450); RED BLOOD CELL COUNT(AUTO) 3.34 MIL/uL (4.5-6.0); RED CELL DISTRIBUTION WIDTH 19.6 % (11.5-15.0); WHITE BLOOD COUNT (AUTO) 10.5 K/uL (4.3-11.0)
[2025-03-03 07:21] LABS: CALCIUM, SERUM 9.4 mg/dL (8.5-10.1); CREATININE 1.4 mg/dL (0.6-1.3); POTASSIUM 3.2 mmol/L (3.5-5.1)
[2025-03-03] MEDS: VANCOMYCIN 1 GM in IV D5W 250 ML IV SCH (08:21)
[2025-03-03 08:27] VITALS: BP 157/79; TEMP 98.1; O2SAT 96
[2025-03-03 09:44] LABS: ABG BASE EXCESS 2.1 mmol/L (-2.0-3.0); ABG OXYGEN SATURATION 95.1 % (94.0-98.0); ABG PCO2 43.4 mmHg (35.0-48.0); ABG PH 7.412 (7.350-7.450); ABG PO2 77.8 mmHg (83.0-108.0); ABG TOTAL HEMOGLOBIN 9.5 G/dL (13.5-17.5); COHb 0.4 % (0.5-1.5); MetHb 0.3 % (0.0-1.5); O2Hb 94.4 % (94.0-97.0); SITE, ABG LEFT RADIAL
[2025-03-03] MEDS: POTASSIUM CHLORIDE 20 MEQ POWDER PACKET NG SCH (11:00)
[2025-03-03 16:08] VITALS: BP 125/72; TEMP 97.7; O2SAT 97
[2025-03-03] MEDS: IV 1/2NS 1000 ML 1,000 ML IV PRN (17:55)
[2025-03-03 20:00] VITALS: BP 175/88; TEMP 98.4; O2SAT 96; O2SAT 98
[2025-03-04] VITALS (7 sets, daily range): BP systolic 120–174; BP diastolic 66–89; TEMP 98.4–99.3; O2SAT 97–100
[2025-03-04 07:49] LABS: BASOPHILS % (AUTO) 0.1 % (0.0-2.0); EOSINOPHILS # (AUTO) 0.1 K/uL (0.0-0.7); EOSINOPHILS % (AUTO) 0.6 % (0.0-6.0); HEMATOCRIT 25 % (39-51); HEMOGLOBIN 7.8 g/dL (13.5-17.5); LYMPHOCYTES # (AUTO) 0.4 K/uL (0.8-4.8); LYMPHOCYTES % (AUTO) 4.4 % (20.0-44.0); MEAN CORPUSCULAR HEMOGLOBIN 25 PG (26.0-33.0); MEAN CORPUSCULAR HGB CONC 32 g/dl (31.0-36.0); MEAN CORPUSCULAR VOLUME 79 fL (80-96); MONOCYTES # (AUTO) 0.6 K/uL (0.1-1.30); MONOCYTES % (AUTO) 7.3 % (2.0-12.0); NEUTROPHILS # (AUTO) 7.7 K/uL (1.8-8.9); NEUTROPHILS % (AUTO) 87.6 % (43.0-81.0); PLATELET COUNT (AUTO) 125 K/uL (150-450); RED BLOOD CELL COUNT(AUTO) 3.11 MIL/uL (4.5-6.0); RED CELL DISTRIBUTION WIDTH 20.3 % (11.5-15.0); WHITE BLOOD COUNT (AUTO) 8.8 K/uL (4.3-11.0)
[2025-03-04 08:07] LABS: CALCIUM, SERUM 9.6 mg/dL (8.5-10.1); CREATININE 1.3 mg/dL (0.6-1.3); POTASSIUM 3.5 mmol/L (3.5-5.1)
[2025-03-05] VITALS (7 sets, daily range): BP systolic 125–169; BP diastolic 64–77; TEMP 97.9–99; O2SAT 96–98
[2025-03-05] MEDS: CLONIDINE HCL 0.1 MG TABLET GT PRN (02:30)
[2025-03-05 06:30] LABS: BASOPHILS % (AUTO) 0.1 % (0.0-2.0); EOSINOPHILS # (AUTO) 0.4 K/uL (0.0-0.7); EOSINOPHILS % (AUTO) 5.8 % (0.0-6.0); HEMATOCRIT 24 % (39-51); HEMOGLOBIN 7.6 g/dL (13.5-17.5); LYMPHOCYTES # (AUTO) 0.5 K/uL (0.8-4.8); LYMPHOCYTES % (AUTO) 6.7 % (20.0-44.0); MEAN CORPUSCULAR HEMOGLOBIN 25 PG (26.0-33.0); MEAN CORPUSCULAR HGB CONC 32 g/dl (31.0-36.0); MEAN CORPUSCULAR VOLUME 79 fL (80-96); MONOCYTES # (AUTO) 0.6 K/uL (0.1-1.30); MONOCYTES % (AUTO) 7.8 % (2.0-12.0); NEUTROPHILS # (AUTO) 5.6 K/uL (1.8-8.9); NEUTROPHILS % (AUTO) 79.6 % (43.0-81.0); PLATELET COUNT (AUTO) 118 K/uL (150-450); RED BLOOD CELL COUNT(AUTO) 3.01 MIL/uL (4.5-6.0); RED CELL DISTRIBUTION WIDTH 20.1 % (11.5-15.0); WHITE BLOOD COUNT (AUTO) 7.1 K/uL (4.3-11.0)
[2025-03-05 07:26] LABS: BILIRUBIN,TOTAL 0.8 mg/dL (0.2-1.0); CALCIUM, SERUM 9.6 mg/dL (8.5-10.1); PHOSPHORUS 2.6 mg/dL (2.5-4.9); POTASSIUM 3.8 mmol/L (3.5-5.1); TOTAL PROTEIN, SERUM 7.7 g/dL (6.4-8.2)
[2025-03-05 07:52] LABS: ALBUMIN 1.2 g/dL (3.4-5.0)
[2025-03-05] MEDS: VANCOMYCIN 750 MG in IV D5W 250 ML IV SCH (10:34)
[2025-03-06] VITALS (8 sets, daily range): BP systolic 132–166; BP diastolic 70–78; TEMP 98.1–98.8; O2SAT 97–99
[2025-03-06 05:09] LABS: *SPE A/G RATIO 0.3 (0.7-1.7); *SPE ALBUMIN 1.5 g/dL (2.9-4.4); *SPE ALPHA-1-GLOBULIN 0.4 g/dL (0.0-0.4); *SPE ALPHA-2-GLOBULIN 0.6 g/dL (0.4-1.0); *SPE BETA GLOBULIN 0.8 g/dL (0.7-1.3); *SPE M-SPIKE Not Observed g/dL (Not Observed); *SPE PROTEIN TOTAL 6.5 g/dL (6.0-8.5); *SPEGAMMA GLOBULIN 3.2 g/dL (0.4-1.8)
[2025-03-06 06:41] LABS: ALANINE AMINOTRANSFERASE 9 U/L (12-78); ALKALINE PHOSPHATASE 206 U/L (46-116); ASPARTATE AMINOTRANSFERASE 18 U/L (15-37); BILIRUBIN,TOTAL 0.8 mg/dL (0.2-1.0); CALCIUM, SERUM 9.7 mg/dL (8.5-10.1); CARBON DIOXIDE 30 mmol/L (21-32); CHLORIDE 108 mmol/L (98-107); GLUCOSE 275 mg/dL (74-106); MAGNESIUM 2.1 mg/dL (1.8-2.4); PHOSPHORUS 2.9 mg/dL (2.5-4.9); POTASSIUM 3.7 mmol/L (3.5-5.1); SODIUM SERUM 142 mmol/L (136-145); TOTAL PROTEIN, SERUM 7.5 g/dL (6.4-8.2); UREA NITROGEN, BLOOD 39 mg/dL (7-18)
[2025-03-06 06:46] LABS: BASOPHILS % (AUTO) 0.1 % (0.0-2.0); EOSINOPHILS # (AUTO) 0.4 K/uL (0.0-0.7); HEMATOCRIT 23 % (39-51); HEMOGLOBIN 7.4 g/dL (13.5-17.5); LYMPHOCYTES # (AUTO) 0.5 K/uL (0.8-4.8); LYMPHOCYTES % (AUTO) 5.5 % (20.0-44.0); MEAN CORPUSCULAR HEMOGLOBIN 25 PG (26.0-33.0); MEAN CORPUSCULAR HGB CONC 32 g/dl (31.0-36.0); MEAN CORPUSCULAR VOLUME 79 fL (80-96); MONOCYTES # (AUTO) 0.7 K/uL (0.1-1.30); MONOCYTES % (AUTO) 8.6 % (2.0-12.0); NEUTROPHILS # (AUTO) 6.9 K/uL (1.8-8.9); NEUTROPHILS % (AUTO) 80.8 % (43.0-81.0); PLATELET COUNT (AUTO) 116 K/uL (150-450); RED BLOOD CELL COUNT(AUTO) 2.95 MIL/uL (4.5-6.0); RED CELL DISTRIBUTION WIDTH 19.8 % (11.5-15.0); WHITE BLOOD COUNT (AUTO) 8.6 K/uL (4.3-11.0)
[2025-03-06 07:07] LABS: ALBUMIN 1.1 g/dL (3.4-5.0)
[2025-03-06] MEDS: DOCUSATE SODIUM LIQ 100 MG/10 ML UDC GT SCH (08:37)
[2025-03-07] VITALS (7 sets, daily range): BP systolic 120–174; BP diastolic 66–86; TEMP 97.9–99.3; O2SAT 97–99
[2025-03-07 07:54] LABS: BASOPHILS % (AUTO) 0.2 % (0.0-2.0); EOSINOPHILS # (AUTO) 0.4 K/uL (0.0-0.7); EOSINOPHILS % (AUTO) 4.1 % (0.0-6.0); HEMATOCRIT 25 % (39-51); HEMOGLOBIN 7.8 g/dL (13.5-17.5); LYMPHOCYTES # (AUTO) 0.6 K/uL (0.8-4.8); LYMPHOCYTES % (AUTO) 6.3 % (20.0-44.0); MEAN CORPUSCULAR HEMOGLOBIN 25 PG (26.0-33.0); MEAN CORPUSCULAR HGB CONC 31 g/dl (31.0-36.0); MEAN CORPUSCULAR VOLUME 80 fL (80-96); MONOCYTES # (AUTO) 0.9 K/uL (0.1-1.30); MONOCYTES % (AUTO) 9.4 % (2.0-12.0); NEUTROPHILS # (AUTO) 7.9 K/uL (1.8-8.9); PLATELET COUNT (AUTO) 105 K/uL (150-450); RED BLOOD CELL COUNT(AUTO) 3.16 MIL/uL (4.5-6.0); RED CELL DISTRIBUTION WIDTH 19.9 % (11.5-15.0); WHITE BLOOD COUNT (AUTO) 9.9 K/uL (4.3-11.0)
[2025-03-07 08:17] LABS: CALCIUM, SERUM 9.9 mg/dL (8.5-10.1); CARBON DIOXIDE 31 mmol/L (21-32); CHLORIDE 108 mmol/L (98-107); CREATININE 1.2 mg/dL (0.6-1.3); GLUCOSE 265 mg/dL (74-106); POTASSIUM 3.7 mmol/L (3.5-5.1); SODIUM SERUM 141 mmol/L (136-145); UREA NITROGEN, BLOOD 33 mg/dL (7-18)
[2025-03-08] VITALS: BP 174/87; TEMP 98.8; O2SAT 98
[2025-03-08 04:00] VITALS: BP 141/74; TEMP 99; O2SAT 98
[2025-03-08 08:00] VITALS: BP 170/89; TEMP 98.1; O2SAT 97
[2025-03-08 08:00] LABS: CALCIUM, SERUM 9.6 mg/dL (8.5-10.1); CARBON DIOXIDE 27 mmol/L (21-32); CHLORIDE 108 mmol/L (98-107); CREATININE 1.1 mg/dL (0.6-1.3); GLUCOSE 265 mg/dL (74-106); POTASSIUM 4.5 mmol/L (3.5-5.1); SODIUM SERUM 137 mmol/L (136-145); UREA NITROGEN, BLOOD 32 mg/dL (7-18)
[2025-03-08 12:00] VITALS: BP 178/86; TEMP 98.4; O2SAT 97
[2025-03-08 16:00] VITALS: BP 124/73; TEMP 97.7; O2SAT 99
[2025-03-08 20:00] VITALS: BP 121/60; TEMP 99; O2SAT 97
[2025-03-09] VITALS: BP 132/83; TEMP 98.4; O2SAT 97
[2025-03-09 04:00] VITALS: BP 142/73; TEMP 98.8; O2SAT 97
[2025-03-09 07:02] LABS: CALCIUM, SERUM 9.8 mg/dL (8.5-10.1); CREATININE 1.3 mg/dL (0.6-1.3); POTASSIUM 4.1 mmol/L (3.5-5.1)
[2025-03-09 08:00] VITALS: BP 157/79; TEMP 97.7; O2SAT 98; O2SAT 99
[2025-03-09 12:00] VITALS: BP_SYST 119; BP_SYST 144; BP_DIAS 57; BP_DIAS 90; TEMP 98.1; O2SAT 97; O2SAT 98
[2025-03-09 16:00] VITALS: BP 126/69; TEMP 98.2; O2SAT 97
[2025-03-09 20:00] VITALS: BP 152/99; TEMP 97.9; O2SAT 96
[2025-03-10] VITALS (8 sets, daily range): BP systolic 130–170; BP diastolic 72–90; TEMP 97.5–98.1; O2SAT 97–99
[2025-03-10 06:51] LABS: BASOPHILS % (AUTO) 0.3 % (0.0-2.0); EOSINOPHILS # (AUTO) 0.4 K/uL (0.0-0.7); EOSINOPHILS % (AUTO) 2.9 % (0.0-6.0); HEMATOCRIT 25 % (39-51); LYMPHOCYTES # (AUTO) 1.1 K/uL (0.8-4.8); LYMPHOCYTES % (AUTO) 7.4 % (20.0-44.0); MEAN CORPUSCULAR HEMOGLOBIN 25 PG (26.0-33.0); MEAN CORPUSCULAR HGB CONC 32 g/dl (31.0-36.0); MEAN CORPUSCULAR VOLUME 80 fL (80-96); MONOCYTES # (AUTO) 1.7 K/uL (0.1-1.30); MONOCYTES % (AUTO) 11.1 % (2.0-12.0); NEUTROPHILS # (AUTO) 11.8 K/uL (1.8-8.9); NEUTROPHILS % (AUTO) 78.3 % (43.0-81.0); PLATELET COUNT (AUTO) 182 K/uL (150-450); RED BLOOD CELL COUNT(AUTO) 3.16 MIL/uL (4.5-6.0); RED CELL DISTRIBUTION WIDTH 20.1 % (11.5-15.0)
[2025-03-10 06:59] LABS: CALCIUM, SERUM 10.1 mg/dL (8.5-10.1); CREATININE 1.4 mg/dL (0.6-1.3); POTASSIUM 4.3 mmol/L (3.5-5.1)
[2025-03-10] MEDS: AMLODIPINE BESYLATE 5 MG TABLET PO SCH (08:43)
[2025-03-10] MEDS: VANCOMYCIN 750 MG in IV D5W 250 ML IV SCH (11:13)
== END 2025-03-10 17:27 | DRG 870 ==
LOC: ER 02-27 00:36 → ICU 02-27 06:43 → TELE 03-02 14:17
PROVIDERS: ADMIT Internal Medicine; ATTEND Internal Medicine
PROC: 5A1955Z Respiratory Ventilation, Greater than 96 Consecutive Hours (ICD-10-PCS; principal; 2025-02-27)
PROC: 02HV33Z Insertion of Infusion Device into Superior Vena Cava, Percutaneous Approach (ICD-10-PCS; 2025-02-27)
PROC: B548ZZA Ultrasonography of Superior Vena Cava, Guidance (ICD-10-PCS; 2025-02-27)
PROC: 0W9G3ZZ Drainage of Peritoneal Cavity, Percutaneous Approach (ICD-10-PCS; 2025-02-27)
PROC: 30233N1 Transfusion of Nonautologous Red Blood Cells into Peripheral Vein, Percutaneous Approach (ICD-10-PCS; 2025-03-07)
DX: A41.9 Sepsis, unspecified organism (principal); E43 Unspecified severe protein-calorie malnutrition; J96.21 Acute and chronic respiratory failure with hypoxia; R65.21 Severe sepsis with septic shock; G93.41 Metabolic encephalopathy; K65.2 Spontaneous bacterial peritonitis; N17.0 Acute kidney failure with tubular necrosis; L89.893 Pressure ulcer of other site, stage 3; E87.4 Mixed disorder of acid-base balance; N39.0 Urinary tract infection, site not specified; R18.8 Other ascites; I50.32 Chronic diastolic (congestive) heart failure; Z68.41 Body mass index [BMI] 40.0-44.9, adult; G93.49 Other encephalopathy; J90 Pleural effusion, not elsewhere classified; D50.9 Iron deficiency anemia, unspecified; K74.60 Unspecified cirrhosis of liver; E83.39 Other disorders of phosphorus metabolism; E78.5 Hyperlipidemia, unspecified; E83.41 Hypermagnesemia; E88.09 Other disorders of plasma-protein metabolism, not elsewhere classified; K21.9 Gastro-esophageal reflux disease without esophagitis; L60.0 Ingrowing nail; E83.9 Disorder of mineral metabolism, unspecified; Z86.711 Personal history of pulmonary embolism; Z86.718 Personal history of other venous thrombosis and embolism; Z79.4 Long term (current) use of insulin; G40.909 Epilepsy, unspecified, not intractable, without status epilepticus; I11.0 Hypertensive heart disease with heart failure; E11.40 Type 2 diabetes mellitus with diabetic neuropathy, unspecified; F03.90 Unspecified dementia, unspecified severity, without behavioral disturbance, psychotic disturbance, mood disturbance, and anxiety; S41.111A Laceration without foreign body of right upper arm, initial encounter; L98.8 Other specified disorders of the skin and subcutaneous tissue; R13.10 Dysphagia, unspecified; E87.5 Hyperkalemia; X58.XXXA Exposure to other specified factors, initial encounter; Y93.9 Activity, unspecified; Y92.129 Unspecified place in nursing home as the place of occurrence of the external cause; K52.9 Noninfective gastroenteritis and colitis, unspecified
CPT/HCPCS: 31720; 36415; 49083; 71045-TC; 74018; 76705-TC; 76770-TC; 80048-TC; 80053-TC; 80076-TC; 80202-TC; 81001; 82248-TC; 82272-TC; 82550-TC; 82570-TC; 82728-TC; 82803-TC; 82962-TC; 83540-TC; 83605-TC; 83690-TC; 83735-TC; 83970; 84100-TC; 84155; 84165; 84300-TC; 84484-TC; 85025-TC; 85610-TC; 86850-TC; 87040-TC; 87070-TC; 87081-TC; 87086-TC; 89051-TC; 93970-TC; 94003-TC; 94760-TC; 94762-TC; 94799-TC; 99082-TC; A4217; A4223; A6253; A7526; G0378; J1644; J1720; J1815; J2405; J2470; J2543; J3370; J3371; J3480; J3490; J7040; J7042; J7050; J7060; P9016

== ENCOUNTER 2025-03-11 18:37 | Inpatient (IN) | payer OTHER, MEDICAID ==
[~2025-03-11] VITALS: Ht 165.1 cm; Wt 83.0 kg
[~2025-03-11 18:37] MED LIST changes: -ACET-73 GT; -ACET325T53 GT; -BETA15CR3 TP; +CEFE1VIA3 IV; -CHLO473M5 PO; -DOCU100T2 GT; -ENOX60DI SQ; +FERR220S2 GT; +FLUO30CR11 TP; -HYDR-4182 RC; -INSU100V SQ; -INSU100V7 SQ; -METO-295 GT; +MUPI22OI2 TP; -NUT.237L30 GT; -OMEP20CA15 GT; +ONDA4TAB5 GT; -PYRI25TA4 GT; +ZINC220C6 GT; -ZINC50TA69 GT
[2025-03-11 19:00] LABS: BASOPHILS # (AUTO) 0.1 K/uL (0.0-0.2); BASOPHILS % (AUTO) 0.3 % (0.0-2.0); EOSINOPHILS # (AUTO) 0.5 K/uL (0.0-0.7); EOSINOPHILS % (AUTO) 2.8 % (0.0-6.0); HEMATOCRIT 26 % (39-51); LYMPHOCYTES # (AUTO) 1.5 K/uL (0.8-4.8); LYMPHOCYTES % (AUTO) 8.7 % (20.0-44.0); MEAN CORPUSCULAR HEMOGLOBIN 25 PG (26.0-33.0); MEAN CORPUSCULAR HGB CONC 31 g/dl (31.0-36.0); MEAN CORPUSCULAR VOLUME 79 fL (80-96); MONOCYTES # (AUTO) 1.7 K/uL (0.1-1.30); MONOCYTES % (AUTO) 9.7 % (2.0-12.0); NEUTROPHILS # (AUTO) 13.6 K/uL (1.8-8.9); NEUTROPHILS % (AUTO) 78.5 % (43.0-81.0); PLATELET COUNT (AUTO) 231 K/uL (150-450); RED BLOOD CELL COUNT(AUTO) 3.27 MIL/uL (4.5-6.0); RED CELL DISTRIBUTION WIDTH 19.7 % (11.5-15.0); WHITE BLOOD COUNT (AUTO) 17.3 K/uL (4.3-11.0)
[2025-03-11 19:12] LABS: CALCIUM, SERUM 10.2 mg/dL (8.5-10.1); CARBON DIOXIDE 30 mmol/L (21-32); CHLORIDE 101 mmol/L (98-107); CREATININE 1.8 mg/dL (0.6-1.3); GLUCOSE 169 mg/dL (74-106); POTASSIUM 4.2 mmol/L (3.5-5.1); SODIUM SERUM 135 mmol/L (136-145); UREA NITROGEN, BLOOD 35 mg/dL (7-18)
[2025-03-11 19:13] LABS: INR 1.14 (0.91-1.10); PARTIAL THROMBOPLASTIN TIME 26.8 SEC (24.3-34.3); PROTHROMBIN TIME 11.6 SECS (9.2-11.1)
[2025-03-11 19:17] LABS: ALANINE AMINOTRANSFERASE 16 U/L (12-78); ALBUMIN 1.5 g/dL (3.4-5.0); ALKALINE PHOSPHATASE 251 U/L (46-116); ASPARTATE AMINOTRANSFERASE 21 U/L (15-37); BILIRUBIN,DIRECT 0.6 mg/dL (0.0-0.2); BILIRUBIN,TOTAL 0.9 mg/dL (0.2-1.0); TOTAL PROTEIN, SERUM 9.8 g/dL (6.4-8.2)
[2025-03-11] MEDS: PIPERACILLIN /TAZOBACTAM 3.375 G in IV D5W 50 ML IV ONE (19:23)
[2025-03-11] MEDS: AZITHROMYCIN 500 MG in IV D5W 250 ML IV ONE (19:25)
[2025-03-11 19:26] LABS: LACTIC ACID 2.1 mmol/L (0.4-2.0)
[2025-03-11] MEDS: VANCOMYCIN 1 GM in IV D5W 250 ML IV ONE (20:35)
[2025-03-11 21:29] LABS: APPEARANCE,URINE CLOUDY (CLEAR); BILIRUBIN,URINE NEGATIVE (NEGATIVE); BLOOD, URINE 3+ Ery/uL (NEGATIVE); COLOR,URINE YELLOW (YELLOW); KETONES,URINE NEGATIVE (NEGATIVE); LEUKOCYTE ESTERASE ,URINE NEGATIVE (NEGATIVE); NITRITE, URINE NEGATIVE (NEGATIVE); PH,URINE 5.5 (5.0-8.0); PROTEIN,URINE 1+ mg/dl (NEGATIVE); UGLUCOSE NEGATIVE (NEGATIVE); UROBILINOGEN,URINE 0.2 EU/dL (0.2)
[2025-03-11 21:43] LABS: RBC,URINE 51-80 /HPF (0-2); WBC,URINE 0-2 /HPF (0-3)
[2025-03-11 22:00] LABS: ADD URINE CULTURE YES; BACTERIA,URINE 1+ /HPF (None Seen); COARSE GRANULAR CASTS,URINE Few /LPF (None Seen)
[2025-03-11] MEDS: ENOXAPARIN SODIUM 40 MG/0.4 ML DISP.SYRIN SQ SCH (22:00)
[2025-03-11] MEDS ORDERED: Z GUARD REMEDY 4 OZ OINT TP PRN (22:00)
[2025-03-11] MEDS ORDERED: ONDANSETRON HCL/PF 4 MG/2 ML VIAL IVP PRN (22:00)
[2025-03-11] MEDS ORDERED: ALBUTEROL FS 2.5 MG/3 ML VIAL.NEB NEB PRN (22:00)
[2025-03-11 22:01] LABS: URINE AMORPHOUS URATE Moderate /HPF (None Seen)
[2025-03-12] VITALS: BP 157/88; TEMP 97.6; O2SAT 96
[2025-03-12 04:00] VITALS: BP 149/82; TEMP 97.6; O2SAT 98
[2025-03-12 05:43] LABS: ABG BASE EXCESS 3.3 mmol/L (-2.0-3.0); ABG OXYGEN SATURATION 96.1 % (94.0-98.0); ABG PCO2 45.1 mmHg (35.0-48.0); ABG PH 7.414 (7.350-7.450); ABG PO2 85.6 mmHg (83.0-108.0); COHb 0.6 % (0.5-1.5); MetHb 0.4 % (0.0-1.5); O2Hb 95.1 % (94.0-97.0); PEEP,BG 5 cm H2O; SITE, ABG RIGHT HEEL; VT, ABG 400 mL
[2025-03-12 07:21] LABS: LACTIC ACID 1.6 mmol/L (0.4-2.0)
[2025-03-12 07:34] LABS: CALCIUM, SERUM 10.2 mg/dL (8.5-10.1); CREATININE 1.9 mg/dL (0.6-1.3); MAGNESIUM 2.1 mg/dL (1.8-2.4); PHOSPHORUS 4.4 mg/dL (2.5-4.9); POTASSIUM 4.5 mmol/L (3.5-5.1)
[2025-03-12 07:53] LABS: BASOPHILS # (AUTO) 0.1 K/uL (0.0-0.2); BASOPHILS % (AUTO) 0.3 % (0.0-2.0); EOSINOPHILS # (AUTO) 0.1 K/uL (0.0-0.7); EOSINOPHILS % (AUTO) 0.5 % (0.0-6.0); HEMATOCRIT 22 % (39-51); HEMOGLOBIN 7.1 g/dL (13.5-17.5); LYMPHOCYTES # (AUTO) 0.5 K/uL (0.8-4.8); LYMPHOCYTES % (AUTO) 2.6 % (20.0-44.0); MEAN CORPUSCULAR HEMOGLOBIN 25 PG (26.0-33.0); MEAN CORPUSCULAR HGB CONC 32 g/dl (31.0-36.0); MEAN CORPUSCULAR VOLUME 79 fL (80-96); MONOCYTES # (AUTO) 1.2 K/uL (0.1-1.30); MONOCYTES % (AUTO) 6.1 % (2.0-12.0); NEUTROPHILS # (AUTO) 18.1 K/uL (1.8-8.9); NEUTROPHILS % (AUTO) 90.5 % (43.0-81.0); PLATELET COUNT (AUTO) 173 K/uL (150-450); RED CELL DISTRIBUTION WIDTH 19.5 % (11.5-15.0); WHITE BLOOD COUNT (AUTO) 19.9 K/uL (4.3-11.0)
[2025-03-12 08:00] VITALS: BP 147/89; TEMP 97.3; O2SAT 97
[2025-03-12] MEDS ORDERED: CLON0.1T GT (08:10)
[2025-03-12] MEDS ORDERED: CICL6.6S5 TP (08:10)
[2025-03-12] MEDS: PANTOPRAZOLE 40 MG VIAL IV SCH (08:49)
[2025-03-12 12:00] VITALS: BP 132/74; TEMP 98; O2SAT 100
[2025-03-12] MEDS: ZOSYN IVPB 3.375 G in IV D5W 50ml IV SCH (13:28)
[2025-03-12] MEDS ORDERED: CLONIDINE HCL 0.1 MG TABLET GT PRN (15:30)
[2025-03-12] MEDS ORDERED: BISACODYL SUPP (10 MG) 10 MG/SUPP.RECT SUPP.RECT RC PRN (15:30)
[2025-03-12 16:00] VITALS: BP 124/69; TEMP 98; O2SAT 100
[2025-03-12] MEDS ORDERED: ALBUTEROL FS 2.5 MG/3 ML VIAL.NEB NEB PRN (16:00)
[2025-03-12] MEDS ORDERED: IPRATROPIUM NEB FS 0.5 MG/2.5 ML AMPUL.NEB NEB PRN (16:00)
[2025-03-12] MEDS: GLUCERNA 1.2 1,000 ML BOTTLE NG PRN (17:39)
[2025-03-12] MEDS: VANCOMYCIN 1 GM in IV D5W 250 ML IV SCH (17:50)
[2025-03-12] MEDS: ASCORBIC ACID 500 MG TABLET GT SCH (17:50)
[2025-03-12] MEDS: PROSOURCE / PROSTAT (PYXIS) 30 ML UDC GT SCH (17:50)
[2025-03-12] MEDS: BLOOD SUGAR DIAGNOSTIC 1 EACH STRIP IN SCH (18:02)
[2025-03-12] MEDS: INSULIN REGULAR, HUMAN 100 UNIT/ML 3 ML VIAL SQ PRN (18:03)
[2025-03-12 20:00] VITALS: BP 136/79; TEMP 97.9; O2SAT 98
[2025-03-12] MEDS: IPRATROPIUM NEB FS 0.5 MG/2.5 ML AMPUL.NEB NEB SCH (20:12)
[2025-03-12] MEDS: ALBUTEROL FS 2.5 MG/3 ML VIAL.NEB NEB SCH (20:12)
[2025-03-12] MEDS ORDERED: ENOXAPARIN SODIUM 30 MG/0.3 ML DISP.SYRIN SQ SCH (21:00)
[2025-03-12] MEDS: AZITHROMYCIN 500 MG in IV D5W 250 ML IV SCH (21:10)
[2025-03-13] VITALS (12 sets, daily range): BP systolic 93–127; BP diastolic 51–76; TEMP 97.7–98.4; O2SAT 97–100
[2025-03-13] MEDS: IPRATROPIUM NEB FS 0.5 MG/2.5 ML AMPUL.NEB NEB SCH (01:35)
[2025-03-13 08:15] LABS: CALCIUM, SERUM 9.8 mg/dL (8.5-10.1); MAGNESIUM 2.1 mg/dL (1.8-2.4); POTASSIUM 4.2 mmol/L (3.5-5.1)
[2025-03-13] MEDS: FERROUS SULFATE UDC 300 MG/5 ML UDC GT SCH (08:15)
[2025-03-13] MEDS: DOCUSATE SODIUM 100 MG CAPSULE PO SCH (08:16)
[2025-03-13] MEDS: PANTOPRAZOLE 40 MG/PACK PACK GT SCH (08:16)
[2025-03-13] MEDS: AMLODIPINE BESYLATE 10 MG TABLET GT SCH (08:16)
[2025-03-13] MEDS: FUROSEMIDE 20 MG TABLET GT SCH (08:16)
[2025-03-13] MEDS: HYDROCHLOROTHIAZIDE 25 MG TABLET GT SCH (08:16)
[2025-03-13 11:13] LABS: BASOPHILS # (AUTO) 0.1 K/uL (0.0-0.2); BASOPHILS % (AUTO) 0.6 % (0.0-2.0); EOSINOPHILS # (AUTO) 0.4 K/uL (0.0-0.7); EOSINOPHILS % (AUTO) 4.1 % (0.0-6.0); LYMPHOCYTES # (AUTO) 0.6 K/uL (0.8-4.8); LYMPHOCYTES % (AUTO) 6.2 % (20.0-44.0); MEAN CORPUSCULAR HEMOGLOBIN 26 PG (26.0-33.0); MEAN CORPUSCULAR HGB CONC 33 g/dl (31.0-36.0); MEAN CORPUSCULAR VOLUME 79 fL (80-96); MONOCYTES # (AUTO) 1.1 K/uL (0.1-1.30); MONOCYTES % (AUTO) 10.6 % (2.0-12.0); NEUTROPHILS # (AUTO) 8.2 K/uL (1.8-8.9); NEUTROPHILS % (AUTO) 78.5 % (43.0-81.0); PLATELET COUNT (AUTO) 162 K/uL (150-450); RED BLOOD CELL COUNT(AUTO) 2.55 MIL/uL (4.5-6.0); RED CELL DISTRIBUTION WIDTH 19.9 % (11.5-15.0); WHITE BLOOD COUNT (AUTO) 10.4 K/uL (4.3-11.0)
[2025-03-13 11:16] LABS: HEMATOCRIT 20 % (39-51); HEMOGLOBIN 6.5 g/dL (13.5-17.5)
[2025-03-13 12:23] LABS: EOSINOPHILS % (MANUAL) 4 % (0-4); LYMPHOCYTES % (MANUAL) 4 % (16-48); MONOCYTES % (MANUAL) 2 % (0-11.0); NEUTROPHILS % (MANUAL) 90 (42-76); PLATELET ESTIMATE ADEQUATE
[2025-03-13 12:24] LABS: ANISOCYTOSIS 1+; HYPOCHROMASIA 1+
[2025-03-13] MEDS: PIPERACILLIN /TAZOBACTAM 3.375 G in IV D5W 100 ML IV SCH (15:13)
[2025-03-13 17:58] LABS: PROTEIN, BODY FLUID 4.3 G/DL
[2025-03-13 19:30] LABS: PROTEIN, BODY FLUID 2.3 G/DL
[2025-03-13 20:53] LABS: APPEARANCE,SPUN,BODY FLUID CLEAR (CLEAR); TOTAL VOLUME,BODY FLUID 3500 mL; WBC, BODY FLUID 87 /cu. mm. (0-200)
[2025-03-13 20:57] LABS: MONOCYTES,BODY FLUID 2 %
[2025-03-13 21:01] LABS: APPEARANCE,SPUN,BODY FLUID CLEAR (CLEAR); MONOCYTES,BODY FLUID 1 %; TOTAL VOLUME,BODY FLUID 1750 mL; WBC, BODY FLUID 220 /cu. mm. (0-200)
[2025-03-14 00:02] VITALS: BP 101/53; TEMP 98.2; O2SAT 98
[2025-03-14 04:48] VITALS: BP 102/63; TEMP 97.9; O2SAT 98
[2025-03-14 07:57] LABS: BASOPHILS % (AUTO) 0.5 % (0.0-2.0); EOSINOPHILS # (AUTO) 0.4 K/uL (0.0-0.7); EOSINOPHILS % (AUTO) 4.3 % (0.0-6.0); HEMATOCRIT 24 % (39-51); HEMOGLOBIN 8.2 g/dL (13.5-17.5); LYMPHOCYTES # (AUTO) 0.6 K/uL (0.8-4.8); LYMPHOCYTES % (AUTO) 6.8 % (20.0-44.0); MEAN CORPUSCULAR HEMOGLOBIN 28 PG (26.0-33.0); MEAN CORPUSCULAR HGB CONC 34 g/dl (31.0-36.0); MEAN CORPUSCULAR VOLUME 82 fL (80-96); MONOCYTES # (AUTO) 0.9 K/uL (0.1-1.30); MONOCYTES % (AUTO) 10.1 % (2.0-12.0); NEUTROPHILS # (AUTO) 6.7 K/uL (1.8-8.9); NEUTROPHILS % (AUTO) 78.3 % (43.0-81.0); PLATELET COUNT (AUTO) 155 K/uL (150-450); RED BLOOD CELL COUNT(AUTO) 2.96 MIL/uL (4.5-6.0); RED CELL DISTRIBUTION WIDTH 19.2 % (11.5-15.0); WHITE BLOOD COUNT (AUTO) 8.5 K/uL (4.3-11.0)
[2025-03-14 08:00] VITALS: BP 108/57; TEMP 97.9; O2SAT 99
[2025-03-14 08:02] LABS: CALCIUM, SERUM 9.6 mg/dL (8.5-10.1); CREATININE 2.3 mg/dL (0.6-1.3); POTASSIUM 4.3 mmol/L (3.5-5.1)
[2025-03-14 11:49] LABS: INR 1.27 (0.91-1.10); PARTIAL THROMBOPLASTIN TIME 30.1 SEC (24.3-34.3); PROTHROMBIN TIME 13.3 SECS (9.2-11.1)
[2025-03-14 12:00] VITALS: BP 106/60; TEMP 98.2; O2SAT 99
[2025-03-14 16:00] VITALS: BP 116/64; TEMP 97.7; O2SAT 99
[2025-03-14] MEDS: CEFEPIME 2 GM in IV D5W 100 ML IV SCH (19:58)
[2025-03-14 20:00] VITALS: BP 107/60; TEMP 98.2; O2SAT 99
[2025-03-14] MEDS: MUPIROCIN OINT 2% 22 GM TUBE NS SCH (21:41)
[2025-03-15] VITALS: BP 120/63; TEMP 98.6; O2SAT 99
[2025-03-15 04:00] VITALS: BP 113/59; TEMP 98.4; O2SAT 98
[2025-03-15 06:37] LABS: BASOPHILS % (AUTO) 0.3 % (0.0-2.0); EOSINOPHILS # (AUTO) 0.4 K/uL (0.0-0.7); EOSINOPHILS % (AUTO) 5.1 % (0.0-6.0); HEMATOCRIT 22 % (39-51); HEMOGLOBIN 7.3 g/dL (13.5-17.5); LYMPHOCYTES # (AUTO) 0.5 K/uL (0.8-4.8); LYMPHOCYTES % (AUTO) 6.5 % (20.0-44.0); MEAN CORPUSCULAR HEMOGLOBIN 27 PG (26.0-33.0); MEAN CORPUSCULAR HGB CONC 33 g/dl (31.0-36.0); MEAN CORPUSCULAR VOLUME 80 fL (80-96); MONOCYTES % (AUTO) 12.1 % (2.0-12.0); NEUTROPHILS # (AUTO) 6.4 K/uL (1.8-8.9); PLATELET COUNT (AUTO) 133 K/uL (150-450); RED BLOOD CELL COUNT(AUTO) 2.75 MIL/uL (4.5-6.0); RED CELL DISTRIBUTION WIDTH 19.7 % (11.5-15.0); WHITE BLOOD COUNT (AUTO) 8.4 K/uL (4.3-11.0)
[2025-03-15 06:54] LABS: CALCIUM, SERUM 9.3 mg/dL (8.5-10.1); CREATININE 2.6 mg/dL (0.6-1.3); POTASSIUM 4.3 mmol/L (3.5-5.1)
[2025-03-15 08:00] VITALS: BP 100/56; TEMP 98.4; O2SAT 99
[2025-03-15 12:00] VITALS: BP 100/48; TEMP 98.2; O2SAT 98
[2025-03-15] MEDS: ALBUMIN 25% 25 GM in PREMIX 1 EA IV SCH (13:36)
[2025-03-15] MEDS: SOD FERRIC GLUC 125 MG in IV NS 0.9% 100 ML IV SCH (14:52)
[2025-03-15 16:00] VITALS: BP 105/59; TEMP 98.1; O2SAT 100
[2025-03-15 20:00] VITALS: BP 113/52; TEMP 98.2; O2SAT 100
[2025-03-15] MEDS: AZITHROMYCIN 250 MG TABLET PO SCH (22:47)
[2025-03-16] VITALS: BP_SYST 148; BP_SYST 149; BP_DIAS 68; BP_DIAS 76; TEMP 97.5; TEMP 98.2; O2SAT 97; O2SAT 99
[2025-03-16 04:00] VITALS: BP 105/61; TEMP 97.7; O2SAT 100; O2SAT 99
[2025-03-16 06:21] LABS: BASOPHILS % (AUTO) 0.4 % (0.0-2.0); EOSINOPHILS # (AUTO) 0.3 K/uL (0.0-0.7); EOSINOPHILS % (AUTO) 4.4 % (0.0-6.0); HEMATOCRIT 27 % (39-51); HEMOGLOBIN 8.6 g/dL (13.5-17.5); LYMPHOCYTES # (AUTO) 0.4 K/uL (0.8-4.8); LYMPHOCYTES % (AUTO) 6.1 % (20.0-44.0); MEAN CORPUSCULAR HEMOGLOBIN 26 PG (26.0-33.0); MEAN CORPUSCULAR HGB CONC 32 g/dl (31.0-36.0); MEAN CORPUSCULAR VOLUME 80 fL (80-96); MONOCYTES # (AUTO) 0.9 K/uL (0.1-1.30); MONOCYTES % (AUTO) 12.5 % (2.0-12.0); NEUTROPHILS # (AUTO) 5.4 K/uL (1.8-8.9); NEUTROPHILS % (AUTO) 76.6 % (43.0-81.0); PLATELET COUNT (AUTO) 107 K/uL (150-450); RED BLOOD CELL COUNT(AUTO) 3.33 MIL/uL (4.5-6.0); RED CELL DISTRIBUTION WIDTH 20.2 % (11.5-15.0); WHITE BLOOD COUNT (AUTO) 7.1 K/uL (4.3-11.0)
[2025-03-16 06:38] LABS: ALBUMIN 1.8 g/dL (3.4-5.0); BILIRUBIN,TOTAL 0.8 mg/dL (0.2-1.0); CALCIUM, SERUM 9.5 mg/dL (8.5-10.1); CREATININE 2.8 mg/dL (0.6-1.3); MAGNESIUM 2.1 mg/dL (1.8-2.4); PHOSPHORUS 4.9 mg/dL (2.5-4.9); POTASSIUM 4.1 mmol/L (3.5-5.1); TOTAL PROTEIN, SERUM 7.9 g/dL (6.4-8.2)
[2025-03-16 08:00] VITALS: BP 109/59; TEMP 98.1; O2SAT 97
[2025-03-16 12:00] VITALS: BP 104/57; TEMP 98.4; O2SAT 97
[2025-03-16 16:00] VITALS: BP 108/61; TEMP 98.1; O2SAT 94
[2025-03-16] MEDS: ALBUMIN 25% 25 GM in PREMIX 1 EA IV SCH (16:49)
[2025-03-16] MEDS ORDERED: VANCOMYCIN HCL 1.25 GM in IV D5W 250 ML IV SCH (18:00)
[2025-03-16 20:00] VITALS: BP 132/73; TEMP 97.3; O2SAT 95
[2025-03-17] VITALS: BP 130/71; TEMP 98.4; O2SAT 95
[2025-03-17 04:00] VITALS: BP 153/81; TEMP 97.2; O2SAT 95
[2025-03-17 06:42] LABS: CREATININE, URINE 52.8 MG/DL (30.0-125.0); URINE TOTAL PROTEIN 386.8 mg/dL (0-11.9)
[2025-03-17 06:56] LABS: APPEARANCE,URINE TURBID (CLEAR); BILIRUBIN,URINE NEGATIVE (NEGATIVE); BLOOD, URINE 2+ Ery/uL (NEGATIVE); COLOR,URINE DARK YELLOW (YELLOW); KETONES,URINE TRACE mg/dL (NEGATIVE); LEUKOCYTE ESTERASE ,URINE 2+ (NEGATIVE); NITRITE, URINE POSITIVE (NEGATIVE); PH,URINE 5.5 (5.0-8.0); PROTEIN,URINE 3+ mg/dl (NEGATIVE); UGLUCOSE NEGATIVE (NEGATIVE); UROBILINOGEN,URINE 0.2 EU/dL (0.2)
[2025-03-17 07:03] LABS: ADD URINE CULTURE YES; BACTERIA,URINE 1+ /HPF (None Seen); COARSE GRANULAR CASTS,URINE Moderate /LPF (None Seen); RBC,URINE TOO NUMEROUS TO COUN /HPF (0-2); SQUAMOUS EPITHELIAL CELL,UR None Seen /HPF (None Seen)
[2025-03-17 07:04] LABS: MUCUS,URINE Few /LPF (None Seen)
[2025-03-17 08:00] VITALS: BP 119/69; TEMP 98.4; O2SAT 98
[2025-03-17 09:09] LABS: CALCIUM, SERUM 9.8 mg/dL (8.5-10.1); CREATININE 3.2 mg/dL (0.6-1.3); MAGNESIUM 2.1 mg/dL (1.8-2.4); PHOSPHORUS 4.6 mg/dL (2.5-4.9); POTASSIUM 3.9 mmol/L (3.5-5.1)
[2025-03-17 09:48] LABS: BASOPHILS # (AUTO) 0.1 K/uL (0.0-0.2); BASOPHILS % (AUTO) 0.5 % (0.0-2.0); EOSINOPHILS # (AUTO) 0.2 K/uL (0.0-0.7); EOSINOPHILS % (AUTO) 1.5 % (0.0-6.0); HEMATOCRIT 22 % (39-51); LYMPHOCYTES # (AUTO) 0.4 K/uL (0.8-4.8); LYMPHOCYTES % (AUTO) 3.1 % (20.0-44.0); MEAN CORPUSCULAR HEMOGLOBIN 26 PG (26.0-33.0); MEAN CORPUSCULAR HGB CONC 32 g/dl (31.0-36.0); MEAN CORPUSCULAR VOLUME 81 fL (80-96); MONOCYTES # (AUTO) 1.3 K/uL (0.1-1.30); MONOCYTES % (AUTO) 9.9 % (2.0-12.0); NEUTROPHILS # (AUTO) 11.1 K/uL (1.8-8.9); PLATELET COUNT (AUTO) 117 K/uL (150-450); RED BLOOD CELL COUNT(AUTO) 2.72 MIL/uL (4.5-6.0); RED CELL DISTRIBUTION WIDTH 19.8 % (11.5-15.0); WHITE BLOOD COUNT (AUTO) 13.1 K/uL (4.3-11.0)
[2025-03-17 10:25] LABS: ABG BASE EXCESS -0.1 mmol/L (-2.0-3.0); ABG OXYGEN SATURATION 95.4 % (94.0-98.0); ABG PCO2 39.8 mmHg (35.0-48.0); ABG PH 7.408 (7.350-7.450); ABG PO2 80.8 mmHg (83.0-108.0); ABG TOTAL HEMOGLOBIN 7.5 G/dL (13.5-17.5); COHb 0.3 % (0.5-1.5); MetHb 0.3 % (0.0-1.5); O2Hb 94.8 % (94.0-97.0); PEEP,BG 5 cm H2O; SITE, ABG LEFT RADIAL; VT, ABG 400 mL
[2025-03-17 11:00] LABS: EOSINOPHIL,URINE Rare
[2025-03-17 12:00] VITALS: BP 125/72; TEMP 97.9; O2SAT 94
[2025-03-17 14:22] LABS: EOSINOPHILS % (MANUAL) 2 % (0-4); LYMPHOCYTES % (MANUAL) 2 % (16-48); MONOCYTES % (MANUAL) 1 % (0-11.0); NEUTROPHILS % (MANUAL) 95 (42-76); PLATELET ESTIMATE DECREASED
[2025-03-17] MEDS ORDERED: LORAZEPAM INJ 2 MG/ML VIAL IVP PRN (15:30)
[2025-03-17 16:00] VITALS: BP 124/69; TEMP 97.9; O2SAT 99
[2025-03-17 20:00] VITALS: BP 135/74; TEMP 97.5; O2SAT 94
[2025-03-18] VITALS: BP 125/73; TEMP 97.3; O2SAT 94
[2025-03-18 01:07] LABS: PTH, INTACT 7 pg/mL (15-65)
[2025-03-18 04:00] VITALS: BP 134/72; TEMP 97.9; O2SAT 95
[2025-03-18 06:42] LABS: BASOPHILS % (AUTO) 0.1 % (0.0-2.0); EOSINOPHILS # (AUTO) 0.1 K/uL (0.0-0.7); EOSINOPHILS % (AUTO) 0.9 % (0.0-6.0); HEMATOCRIT 24 % (39-51); HEMOGLOBIN 7.5 g/dL (13.5-17.5); LYMPHOCYTES # (AUTO) 0.7 K/uL (0.8-4.8); LYMPHOCYTES % (AUTO) 5.4 % (20.0-44.0); MEAN CORPUSCULAR HEMOGLOBIN 25 PG (26.0-33.0); MEAN CORPUSCULAR HGB CONC 32 g/dl (31.0-36.0); MEAN CORPUSCULAR VOLUME 80 fL (80-96); MONOCYTES # (AUTO) 1.4 K/uL (0.1-1.30); MONOCYTES % (AUTO) 10.3 % (2.0-12.0); NEUTROPHILS # (AUTO) 11.5 K/uL (1.8-8.9); NEUTROPHILS % (AUTO) 83.3 % (43.0-81.0); PLATELET COUNT (AUTO) 137 K/uL (150-450); RED BLOOD CELL COUNT(AUTO) 2.93 MIL/uL (4.5-6.0); RED CELL DISTRIBUTION WIDTH 20.6 % (11.5-15.0); WHITE BLOOD COUNT (AUTO) 13.8 K/uL (4.3-11.0)
[2025-03-18 06:55] LABS: CALCIUM, SERUM 9.9 mg/dL (8.5-10.1); CREATININE 3.6 mg/dL (0.6-1.3); MAGNESIUM 2.1 mg/dL (1.8-2.4); PHOSPHORUS 4.7 mg/dL (2.5-4.9)
[2025-03-18 08:00] VITALS: BP 117/67; TEMP 97.5; O2SAT 96
[2025-03-18] MEDS ORDERED: VANCOMYCIN HCL 1.25 GM in IV D5W 250 ML IV SCH (08:00)
[2025-03-18] MEDS: PIPERACILLIN /TAZOBACTAM 2.25 G in IV D5W 50 ML IV SCH (11:46)
[2025-03-18 12:00] VITALS: BP 130/70; TEMP 97.5; O2SAT 96
[2025-03-18 15:07] LABS: *SPE A/G RATIO 0.5 (0.7-1.7); *SPE ALBUMIN 2.4 g/dL (2.9-4.4); *SPE ALPHA-1-GLOBULIN 0.3 g/dL (0.0-0.4); *SPE ALPHA-2-GLOBULIN 0.5 g/dL (0.4-1.0); *SPE BETA GLOBULIN 0.8 g/dL (0.7-1.3); *SPE GLOBULIN, TOTAL 4.8 g/dL (2.2-3.9); *SPE M-SPIKE Not Observed g/dL (Not Observed); *SPE PROTEIN TOTAL 7.2 g/dL (6.0-8.5); *SPEGAMMA GLOBULIN 3.1 g/dL (0.4-1.8)
[2025-03-18 16:00] VITALS: BP 134/61; TEMP 97.7; O2SAT 96
[2025-03-18 20:00] VITALS: BP 102/65; TEMP 97.7; O2SAT 97
[2025-03-19] VITALS: BP 123/67; TEMP 97.5; O2SAT 94
[2025-03-19 04:00] VITALS: BP 134/74; TEMP 98.2; O2SAT 94
[2025-03-19 07:10] LABS: BASOPHILS # (AUTO) 0.1 K/uL (0.0-0.2); BASOPHILS % (AUTO) 0.4 % (0.0-2.0); EOSINOPHILS # (AUTO) 0.1 K/uL (0.0-0.7); EOSINOPHILS % (AUTO) 0.4 % (0.0-6.0); HEMATOCRIT 22 % (39-51); HEMOGLOBIN 7.1 g/dL (13.5-17.5); LYMPHOCYTES # (AUTO) 0.4 K/uL (0.8-4.8); LYMPHOCYTES % (AUTO) 2.6 % (20.0-44.0); MEAN CORPUSCULAR HEMOGLOBIN 26 PG (26.0-33.0); MEAN CORPUSCULAR HGB CONC 32 g/dl (31.0-36.0); MEAN CORPUSCULAR VOLUME 81 fL (80-96); MONOCYTES # (AUTO) 1.1 K/uL (0.1-1.30); MONOCYTES % (AUTO) 7.8 % (2.0-12.0); NEUTROPHILS # (AUTO) 12.8 K/uL (1.8-8.9); NEUTROPHILS % (AUTO) 88.8 % (43.0-81.0); PLATELET COUNT (AUTO) 141 K/uL (150-450); RED BLOOD CELL COUNT(AUTO) 2.77 MIL/uL (4.5-6.0); RED CELL DISTRIBUTION WIDTH 21.1 % (11.5-15.0); WHITE BLOOD COUNT (AUTO) 14.4 K/uL (4.3-11.0)
[2025-03-19 07:20] LABS: ALANINE AMINOTRANSFERASE < 6 U/L (12-78); ALKALINE PHOSPHATASE 126 U/L (46-116); ASPARTATE AMINOTRANSFERASE 16 U/L (15-37); BILIRUBIN,DIRECT 0.5 mg/dL (0.0-0.2); BILIRUBIN,TOTAL 0.9 mg/dL (0.2-1.0); CALCIUM, SERUM 9.8 mg/dL (8.5-10.1); CARBON DIOXIDE 23 mmol/L (21-32); CHLORIDE 96 mmol/L (98-107); CREATININE 4.1 mg/dL (0.6-1.3); GLUCOSE 211 mg/dL (74-106); SODIUM SERUM 131 mmol/L (136-145); TOTAL PROTEIN, SERUM 8.2 g/dL (6.4-8.2); UREA NITROGEN, BLOOD 64 mg/dL (7-18)
[2025-03-19 08:00] VITALS: BP 105/63; TEMP 97.9; O2SAT 94
[2025-03-19] MEDS: ALBUMIN 25% 25 GM in PREMIX 1 EA IV SCH (08:12)
[2025-03-19] MEDS: MIDODRINE HCL (5MG) 5 MG TABLET PO SCH (09:33)
[2025-03-19] MEDS ORDERED: VANCOMYCIN 1 GM in IV D5W 250 ML IV ONE (10:00)
[2025-03-19] MEDS: OCTREOTIDE 100 MCG/ML VIAL SQ SCH (10:10)
[2025-03-19 12:00] VITALS: BP 121/69; TEMP 97.5; O2SAT 94
[2025-03-19 16:00] VITALS: BP 114/78; TEMP 97.7; O2SAT 92
[2025-03-19 20:00] VITALS: BP 110/59; TEMP 97.5; O2SAT 92
[2025-03-20] VITALS (11 sets, daily range): BP systolic 106–130; BP diastolic 57–81; TEMP 97.7–98.5; O2SAT 93–100
[2025-03-20 07:52] LABS: BASOPHILS % (AUTO) 0.2 % (0.0-2.0); EOSINOPHILS # (AUTO) 0.2 K/uL (0.0-0.7); EOSINOPHILS % (AUTO) 1.6 % (0.0-6.0); HEMATOCRIT 21 % (39-51); LYMPHOCYTES # (AUTO) 0.6 K/uL (0.8-4.8); LYMPHOCYTES % (AUTO) 4.3 % (20.0-44.0); MEAN CORPUSCULAR HEMOGLOBIN 26 PG (26.0-33.0); MEAN CORPUSCULAR HGB CONC 32 g/dl (31.0-36.0); MEAN CORPUSCULAR VOLUME 82 fL (80-96); MONOCYTES # (AUTO) 1.2 K/uL (0.1-1.30); MONOCYTES % (AUTO) 8.9 % (2.0-12.0); NEUTROPHILS # (AUTO) 11.2 K/uL (1.8-8.9); PLATELET COUNT (AUTO) 137 K/uL (150-450); RED CELL DISTRIBUTION WIDTH 20.6 % (11.5-15.0); WHITE BLOOD COUNT (AUTO) 13.1 K/uL (4.3-11.0)
[2025-03-20 07:59] LABS: CALCIUM, SERUM 10.3 mg/dL (8.5-10.1); CREATININE 4.3 mg/dL (0.6-1.3); POTASSIUM 3.9 mmol/L (3.5-5.1)
[2025-03-20 08:24] LABS: ERYTHROCYTE SEDIMENTATION RATE 36 MM/HR (0-20)
[2025-03-20 08:45] LABS: ABG BASE EXCESS -4.6 mmol/L (-2.0-3.0); ABG PCO2 49.9 mmHg (35.0-48.0); ABG PH 7.264 (7.350-7.450); ABG PO2 137.1 mmHg (83.0-108.0); COHb 1.3 % (0.5-1.5); MetHb 0.3 % (0.0-1.5); O2Hb 97.4 % (94.0-97.0); PEEP,BG 5 cm H2O; SITE, ABG LEFT RADIAL; VT, ABG 400 mL
[2025-03-20] MEDS: ALBUMIN 25% 25 GM in PREMIX 1 EA IV SCH (08:57)
[2025-03-20 09:02] LABS: HEMOGLOBIN 6.7 g/dL (13.5-17.5)
[2025-03-20] MEDS ORDERED: VANCOMYCIN 1 GM in IV D5W 250ml IV SCH (10:00)
[2025-03-20 10:55] LABS: ANISOCYTOSIS 1+; EOSINOPHILS % (MANUAL) 1 % (0-4); LYMPHOCYTES % (MANUAL) 4 % (16-48); NEUTROPHILS % (MANUAL) 95 (42-76); PLATELET ESTIMATE DECREASED
[2025-03-21] VITALS (40 sets, daily range): BP systolic 89–140; BP diastolic 52–72; TEMP 97.5–98.5; O2SAT 92–100
[2025-03-21 05:09] LABS: HEPATITIS B SURFACE AB (QUAL) Non Reactive (.)
[2025-03-21 07:08] LABS: BASOPHILS % (AUTO) 0.1 % (0.0-2.0); EOSINOPHILS # (AUTO) 0.1 K/uL (0.0-0.7); EOSINOPHILS % (AUTO) 0.6 % (0.0-6.0); HEMATOCRIT 25 % (39-51); LYMPHOCYTES # (AUTO) 0.4 K/uL (0.8-4.8); LYMPHOCYTES % (AUTO) 3.3 % (20.0-44.0); MEAN CORPUSCULAR HEMOGLOBIN 27 PG (26.0-33.0); MEAN CORPUSCULAR HGB CONC 32 g/dl (31.0-36.0); MEAN CORPUSCULAR VOLUME 83 fL (80-96); MONOCYTES # (AUTO) 0.7 K/uL (0.1-1.30); NEUTROPHILS # (AUTO) 9.9 K/uL (1.8-8.9); PLATELET COUNT (AUTO) 125 K/uL (150-450); RED BLOOD CELL COUNT(AUTO) 2.98 MIL/uL (4.5-6.0); RED CELL DISTRIBUTION WIDTH 20.1 % (11.5-15.0)
[2025-03-21 07:09] LABS: CALCIUM, SERUM 9.5 mg/dL (8.5-10.1); CREATININE 5.1 mg/dL (0.6-1.3); POTASSIUM 3.9 mmol/L (3.5-5.1)
[2025-03-21 08:07] LABS: COMPLEMENT C3, SERUM 60 mg/dL (82-167); COMPLEMENT C4, SERUM 10 mg/dL (12-38)
[2025-03-21 10:09] LABS: *ANA ANTI-CENTROMERE B AB <0.2 AI (0.0-0.9); *ANA ANTI-DNA(DS) AB, QN <1 IU/mL (0-9); *ANA ANTI-JO-1 <0.2 AI (0.0-0.9); *ANA ANTICHROMATIN ANTIBODY <0.2 AI (0.0-0.9); *ANA RNP ANTIBODIES 0.4 AI (0.0-0.9); *ANA SJOGREN'S ANTI-SS-A <0.2 AI (0.0-0.9); *ANA SJOGREN'S ANTI-SS-B <0.2 AI (0.0-0.9); *ANAANTI-SCLERODERMA-70 AB <0.2 AI (0.0-0.9); *ANASMITH AB <0.2 AI (0.0-0.9)
[2025-03-21 12:46] LABS: ABG BASE EXCESS -3.9 mmol/L (-2.0-3.0); ABG OXYGEN SATURATION 86.7 % (94.0-98.0); ABG PCO2 40.5 mmHg (35.0-48.0); ABG PH 7.343 (7.350-7.450); ABG PO2 56.6 mmHg (83.0-108.0); ABG TOTAL HEMOGLOBIN 9.1 G/dL (13.5-17.5); COHb 0.2 % (0.5-1.5); MetHb 0.2 % (0.0-1.5); O2Hb 86.4 % (94.0-97.0); PEEP,BG 8 cm H2O; SITE, ABG LEFT RADIAL; VT, ABG 425 mL
[2025-03-21] MEDS: NOREPINEPHRINE 32 MG in IV NS 0.9% 218 ML IV PRN (14:51)
[2025-03-21] MEDS: PROPOFOL 100 ML IV PRN (14:52)
[2025-03-21] MEDS ORDERED: DOSE PER PHARMACY MICAFUNGIN 1 EA IV PRN (17:00)
[2025-03-21] MEDS: MICAFUNGIN SODIUM 100 MG in IV NS 0.9% 100 ML IV SCH (18:08)
[2025-03-21] MEDS: ALBUMIN 25% 25 GM in PREMIX 1 EA IV SCH (18:10)
[2025-03-21 22:27] LABS: APPEARANCE,URINE TURBID (CLEAR)
[2025-03-21 22:28] LABS: COLOR,URINE BROWN (YELLOW)
[2025-03-21 22:59] LABS: BACTERIA,URINE Many /HPF (None Seen); RBC,URINE TOO NUMEROUS TO COUN /HPF (0-2)
[2025-03-21 23:00] LABS: WBC,URINE 51-80 /HPF (0-3); YEAST,URINE Many /HPF (None Seen)
[2025-03-21 23:01] LABS: SQUAMOUS EPITHELIAL CELL,UR Few /HPF (None Seen)
[2025-03-22] VITALS (94 sets, daily range): BP systolic 96–136; BP diastolic 51–73; TEMP 97.9–98.5; O2SAT 89–99
[2025-03-22 04:44] LABS: BASOPHILS % (AUTO) 0.3 % (0.0-2.0); EOSINOPHILS # (AUTO) 0.6 K/uL (0.0-0.7); EOSINOPHILS % (AUTO) 3.3 % (0.0-6.0); HEMATOCRIT 26 % (39-51); HEMOGLOBIN 8.4 g/dL (13.5-17.5); LYMPHOCYTES # (AUTO) 0.9 K/uL (0.8-4.8); LYMPHOCYTES % (AUTO) 5.1 % (20.0-44.0); MEAN CORPUSCULAR HEMOGLOBIN 28 PG (26.0-33.0); MEAN CORPUSCULAR HGB CONC 32 g/dl (31.0-36.0); MEAN CORPUSCULAR VOLUME 85 fL (80-96); MONOCYTES # (AUTO) 1.1 K/uL (0.1-1.30); MONOCYTES % (AUTO) 6.4 % (2.0-12.0); NEUTROPHILS # (AUTO) 14.6 K/uL (1.8-8.9); NEUTROPHILS % (AUTO) 84.9 % (43.0-81.0); PLATELET COUNT (AUTO) 186 K/uL (150-450); RED BLOOD CELL COUNT(AUTO) 3.05 MIL/uL (4.5-6.0); RED CELL DISTRIBUTION WIDTH 20.8 % (11.5-15.0); WHITE BLOOD COUNT (AUTO) 17.2 K/uL (4.3-11.0)
[2025-03-22 04:56] LABS: CALCIUM, SERUM 9.6 mg/dL (8.5-10.1); CARBON DIOXIDE 25 mmol/L (21-32); CHLORIDE 96 mmol/L (98-107); CREATININE 5.1 mg/dL (0.6-1.3); GLUCOSE 199 mg/dL (74-106); POTASSIUM 3.9 mmol/L (3.5-5.1); SODIUM SERUM 133 mmol/L (136-145); UREA NITROGEN, BLOOD 77 mg/dL (7-18)
[2025-03-22 05:10] LABS: NT-PRO BNP 21310 pg/mL (0-125)
[2025-03-22 05:24] LABS: LACTIC ACID 2.7 mmol/L (0.4-2.0)
[2025-03-22 09:28] LABS: BILIRUBIN,DIRECT 0.7 mg/dL (0.0-0.2); BILIRUBIN,TOTAL 1.2 mg/dL (0.2-1.0)
[2025-03-22 09:33] LABS: LACTIC ACID REFLEX 3.1 mmol/L (0.4-1.9)
[2025-03-22] MEDS: BUMETANIDE INJ 0.25 MG/ML VIAL IV ONE (11:13)
[2025-03-22] MEDS: HEPARIN SODIUM, PORCINE 5000 UNITS/1 ML VIAL SQ SCH (13:32)
[2025-03-22 13:43] LABS: ABG BASE EXCESS -8.9 mmol/L (-2.0-3.0); ABG OXYGEN SATURATION 84.7 % (94.0-98.0); ABG PCO2 80.6 mmHg (35.0-48.0); ABG PH 7.051 (7.350-7.450); ABG PO2 63.4 mmHg (83.0-108.0); ABG TOTAL HEMOGLOBIN 9.3 G/dL (13.5-17.5); COHb 0.5 % (0.5-1.5); MetHb 0.3 % (0.0-1.5); PEEP,BG 8 cm H2O; SITE, ABG LEFT RADIAL; VT, ABG 300 mL
[2025-03-22 14:55] LABS: ABG BASE EXCESS -7.7 mmol/L (-2.0-3.0); ABG OXYGEN SATURATION 92.8 % (94.0-98.0); ABG PCO2 50.8 mmHg (35.0-48.0); ABG PO2 73.8 mmHg (83.0-108.0); ABG TOTAL HEMOGLOBIN 9.1 G/dL (13.5-17.5); COHb 0.5 % (0.5-1.5); MetHb 0.1 % (0.0-1.5); O2Hb 92.2 % (94.0-97.0); PEEP,BG 8 cm H2O; SITE, ABG LEFT RADIAL; VT, ABG 400 mL
[2025-03-23] VITALS (99 sets, daily range): BP systolic 86–127; BP diastolic 47–63; TEMP 97.8–100.2; O2SAT 88–100
[2025-03-23 05:00] LABS: BASOPHILS % (AUTO) 0.2 % (0.0-2.0); EOSINOPHILS # (AUTO) 0.9 K/uL (0.0-0.7); EOSINOPHILS % (AUTO) 6.2 % (0.0-6.0); HEMATOCRIT 25 % (39-51); HEMOGLOBIN 8.1 g/dL (13.5-17.5); LYMPHOCYTES # (AUTO) 0.6 K/uL (0.8-4.8); LYMPHOCYTES % (AUTO) 3.8 % (20.0-44.0); MEAN CORPUSCULAR HEMOGLOBIN 28 PG (26.0-33.0); MEAN CORPUSCULAR HGB CONC 33 g/dl (31.0-36.0); MEAN CORPUSCULAR VOLUME 85 fL (80-96); MONOCYTES # (AUTO) 0.8 K/uL (0.1-1.30); NEUTROPHILS # (AUTO) 12.9 K/uL (1.8-8.9); NEUTROPHILS % (AUTO) 84.8 % (43.0-81.0); PLATELET COUNT (AUTO) 129 K/uL (150-450); RED BLOOD CELL COUNT(AUTO) 2.91 MIL/uL (4.5-6.0); WHITE BLOOD COUNT (AUTO) 15.3 K/uL (4.3-11.0)
[2025-03-23 05:02] LABS: CALCIUM, SERUM 9.2 mg/dL (8.5-10.1); CREATININE 4.3 mg/dL (0.6-1.3); POTASSIUM 3.9 mmol/L (3.5-5.1)
[2025-03-23 06:02] LABS: LYMPHOCYTES % (MANUAL) 5 % (16-48); MONOCYTES % (MANUAL) 4 % (0-11.0); NEUTROPHILS % (MANUAL) 85 (42-76)
[2025-03-23 06:05] LABS: EOSINOPHILS % (MANUAL) 6 % (0-4)
[2025-03-23 06:06] LABS: PLATELET ESTIMATE DECREASED
[2025-03-23 06:07] LABS: ANISOCYTOSIS 1+
[2025-03-23 10:57] LABS: ABG BASE EXCESS -6.1 mmol/L (-2.0-3.0); ABG OXYGEN SATURATION 93.3 % (94.0-98.0); ABG PCO2 43.3 mmHg (35.0-48.0); ABG PH 7.286 (7.350-7.450); ABG PO2 74.5 mmHg (83.0-108.0); ABG TOTAL HEMOGLOBIN 8.8 G/dL (13.5-17.5); COHb 0.3 % (0.5-1.5); MetHb 0.4 % (0.0-1.5); O2Hb 92.6 % (94.0-97.0); PEEP,BG 8 cm H2O; SITE, ABG ALINE; VT, ABG 400 mL
[2025-03-23] MEDS: ACETAMINOPHEN 650 MG/SUPP.RECT RC PRN (13:27)
[2025-03-23 14:07] LABS: ANTI-MPO ANTIBODIES <0.2 units (0.0-0.9); ANTI-PR3 ANTIBODIES 0.2 units (0.0-0.9)
[2025-03-23] MEDS: VANCOMYCIN POST DIALYSIS 500MG IV PRN (20:25)
[2025-03-23 21:40] LABS: ABG BASE EXCESS -6.1 mmol/L (-2.0-3.0); ABG OXYGEN SATURATION 94.6 % (94.0-98.0); ABG PCO2 61.6 mmHg (35.0-48.0); ABG PH 7.179 (7.350-7.450); ABG PO2 84.4 mmHg (83.0-108.0); ABG TOTAL HEMOGLOBIN 9.4 G/dL (13.5-17.5); COHb 0.2 % (0.5-1.5); MetHb 0.3 % (0.0-1.5); O2Hb 94.1 % (94.0-97.0); SITE, ABG RIGHT RADIAL; VT, ABG 375 mL
[2025-03-24] VITALS (103 sets, daily range): BP systolic 78–135; BP diastolic 40–65; TEMP 97.6–98; O2SAT 94–100
[2025-03-24 04:38] LABS: BASOPHILS % (AUTO) 0.2 % (0.0-2.0); EOSINOPHILS # (AUTO) 0.3 K/uL (0.0-0.7); LYMPHOCYTES # (AUTO) 0.8 K/uL (0.8-4.8); LYMPHOCYTES % (AUTO) 4.7 % (20.0-44.0); MEAN CORPUSCULAR HEMOGLOBIN 29 PG (26.0-33.0); MONOCYTES # (AUTO) 0.7 K/uL (0.1-1.30); NEUTROPHILS # (AUTO) 14.1 K/uL (1.8-8.9)
[2025-03-24 04:47] LABS: HEMATOCRIT 25 % (39-51); HEMOGLOBIN 8.3 g/dL (13.5-17.5); MEAN CORPUSCULAR HGB CONC 33 g/dl (31.0-36.0); MEAN CORPUSCULAR VOLUME 86 fL (80-96); MONOCYTES % (AUTO) 4.6 % (2.0-12.0); NEUTROPHILS % (AUTO) 88.5 % (43.0-81.0); PLATELET COUNT (AUTO) 120 K/uL (150-450); RED BLOOD CELL COUNT(AUTO) 2.92 MIL/uL (4.5-6.0); RED CELL DISTRIBUTION WIDTH 20.9 % (11.5-15.0); WHITE BLOOD COUNT (AUTO) 15.9 K/uL (4.3-11.0)
[2025-03-24 04:51] LABS: ALBUMIN 2.2 g/dL (3.4-5.0); BILIRUBIN,TOTAL 1.8 mg/dL (0.2-1.0); CALCIUM, SERUM 8.8 mg/dL (8.5-10.1); CREATININE 3.3 mg/dL (0.6-1.3); PHOSPHORUS 4.1 mg/dL (2.5-4.9); POTASSIUM 3.9 mmol/L (3.5-5.1); TOTAL PROTEIN, SERUM 8.1 g/dL (6.4-8.2)
[2025-03-24 06:16] LABS: EOSINOPHILS % (MANUAL) 1 % (0-4); LYMPHOCYTES % (MANUAL) 2 % (16-48); MONOCYTES % (MANUAL) 2 % (0-11.0); NEUTROPHILS % (MANUAL) 95 (42-76)
[2025-03-24 06:18] LABS: ANISOCYTOSIS 1+; PLATELET ESTIMATE DECREASED
[2025-03-24 08:07] LABS: ABG BASE EXCESS -7.2 mmol/L (-2.0-3.0); ABG OXYGEN SATURATION 98.6 % (94.0-98.0); ABG PCO2 43.6 mmHg (35.0-48.0); ABG PH 7.265 (7.350-7.450); ABG PO2 139.2 mmHg (83.0-108.0); ABG TOTAL HEMOGLOBIN 8.9 G/dL (13.5-17.5); COHb 0.3 % (0.5-1.5); MetHb 0.5 % (0.0-1.5); O2Hb 97.8 % (94.0-97.0); PEEP,BG 8 cm H2O; SITE, ABG RIGHT RADIAL; VT, ABG 425 mL
[2025-03-24] MEDS ORDERED: VANCOMYCIN 1 GM in IV D5W 250ml IV SCH (10:00)
[2025-03-24] MEDS: METOCLOPRAMIDE HCL 10 MG/2 ML VIAL IV SCH (10:04)
[2025-03-24 17:07] LABS: *ANCA ATYPICAL p-ANCA 1:40 titer (Neg:<1:20); *ANCA CYTOPLASMIC (C-ANCA) <1:20 titer (Neg:<1:20); *ANCA PERINUCLEAR (P-ANCA) <1:20 titer (Neg:<1:20)
[2025-03-25] VITALS (93 sets, daily range): BP systolic 83–156; BP diastolic 41–81; TEMP 97.7–99.8; O2SAT 89–99
[2025-03-25 04:41] LABS: BASOPHILS # (AUTO) 0.1 K/uL (0.0-0.2); BASOPHILS % (AUTO) 0.4 % (0.0-2.0); EOSINOPHILS # (AUTO) 0.7 K/uL (0.0-0.7); HEMOGLOBIN 8.4 g/dL (13.5-17.5); MEAN CORPUSCULAR HEMOGLOBIN 29 PG (26.0-33.0); MEAN CORPUSCULAR HGB CONC 35 g/dl (31.0-36.0); MONOCYTES # (AUTO) 0.6 K/uL (0.1-1.30); RED BLOOD CELL COUNT(AUTO) 2.86 MIL/uL (4.5-6.0); WHITE BLOOD COUNT (AUTO) 14.2 K/uL (4.3-11.0)
[2025-03-25 04:44] LABS: CALCIUM, SERUM 8.5 mg/dL (8.5-10.1); CARBON DIOXIDE 23 mmol/L (21-32); CHLORIDE 94 mmol/L (98-107); CREATININE 2.6 mg/dL (0.6-1.3); GLUCOSE 127 mg/dL (74-106); POTASSIUM 2.9 mmol/L (3.5-5.1); SODIUM SERUM 131 mmol/L (136-145); UREA NITROGEN, BLOOD 29 mg/dL (7-18)
[2025-03-25 04:56] LABS: EOSINOPHILS % (AUTO) 4.8 % (0.0-6.0); HEMATOCRIT 24 % (39-51); LYMPHOCYTES # (AUTO) 0.6 K/uL (0.8-4.8); MEAN CORPUSCULAR VOLUME 85 fL (80-96); MONOCYTES % (AUTO) 4.5 % (2.0-12.0); NEUTROPHILS # (AUTO) 12.2 K/uL (1.8-8.9); NEUTROPHILS % (AUTO) 86.3 % (43.0-81.0); PLATELET COUNT (AUTO) 109 K/uL (150-450); RED CELL DISTRIBUTION WIDTH 21.9 % (11.5-15.0)
[2025-03-25] MEDS: POTASSIUM CL. PREMIX PERIPHER. 50 ML IV SCH (10:56)
[2025-03-25] MEDS: ACETAMINOPHEN 650 MG/20.3 ML UDC GT PRN (16:45)
[2025-03-25] MEDS: DEXTROSE 50%-WATER 50 ML DISP.SYRIN IVP ONE (19:14)
[2025-03-25] MEDS ORDERED: DEXTROSE 50%-WATER 50 ML DISP.SYRIN IVP ONE (19:30)
[2025-03-26] VITALS (82 sets, daily range): BP systolic 49–110; BP diastolic 32–57; TEMP 97.9–98.9; O2SAT 56–94
[2025-03-26 02:09] LABS: HEPATITIS B CORE AB, IgM Negative (Negative); HEPATITIS B CORE AB, TOTAL Negative (Negative); HEPATITIS B SURFACE AB (QUAL) Non Reactive (.)
[2025-03-26 04:10] LABS: BASOPHILS # (AUTO) 0.1 K/uL (0.0-0.2); BASOPHILS % (AUTO) 0.2 % (0.0-2.0); EOSINOPHILS # (AUTO) 0.3 K/uL (0.0-0.7); HEMATOCRIT 25 % (39-51); HEMOGLOBIN 8.4 g/dL (13.5-17.5); MEAN CORPUSCULAR HGB CONC 33 g/dl (31.0-36.0)
[2025-03-26 04:21] LABS: CALCIUM, SERUM 9.2 mg/dL (8.5-10.1); CREATININE 3.1 mg/dL (0.6-1.3); MAGNESIUM 1.8 mg/dL (1.8-2.4); PHOSPHORUS 4.1 mg/dL (2.5-4.9); POTASSIUM 3.9 mmol/L (3.5-5.1)
[2025-03-26 04:23] LABS: EOSINOPHILS % (AUTO) 1.1 % (0.0-6.0); LYMPHOCYTES # (AUTO) 0.9 K/uL (0.8-4.8); LYMPHOCYTES % (AUTO) 3.4 % (20.0-44.0); MEAN CORPUSCULAR HEMOGLOBIN 29 PG (26.0-33.0); MEAN CORPUSCULAR VOLUME 88 fL (80-96); MONOCYTES # (AUTO) 0.5 K/uL (0.1-1.30); MONOCYTES % (AUTO) 1.7 % (2.0-12.0); NEUTROPHILS # (AUTO) 25.7 K/uL (1.8-8.9); NEUTROPHILS % (AUTO) 93.6 % (43.0-81.0); PLATELET COUNT (AUTO) 111 K/uL (150-450); RED BLOOD CELL COUNT(AUTO) 2.88 MIL/uL (4.5-6.0); RED CELL DISTRIBUTION WIDTH 23.3 % (11.5-15.0); WHITE BLOOD COUNT (AUTO) 27.5 K/uL (4.3-11.0)
[2025-03-26 05:19] LABS: BAND % (MANUAL) 1 % (0.0-5.0); EOSINOPHILS % (MANUAL) 1 % (0-4); LYMPHOCYTES % (MANUAL) 5 % (16-48); MONOCYTES % (MANUAL) 2 % (0-11.0); NEUTROPHILS % (MANUAL) 91 (42-76)
[2025-03-26 05:20] LABS: PLATELET ESTIMATE ADEQUATE
[2025-03-26 05:21] LABS: ANISOCYTOSIS 1+
[2025-03-26] MEDS: DEXTROSE 50%-WATER 50 ML DISP.SYRIN IV PRN (06:31)
[2025-03-26] MEDS: IV D5/ 0.9% NACL 1,000 ML IV PRN (08:56)
[2025-03-26 10:09] LABS: PEEP,BG 10 cm H2O; VT, ABG 425 mL
[2025-03-26 10:15] LABS: ABG BASE EXCESS -16.8 mmol/L (-2.0-3.0); ABG PCO2 56.1 mmHg (35.0-48.0); ABG PH 7.028 (7.350-7.450); ABG PO2 47.4 mmHg (83.0-108.0); SITE, ABG LEFT BRACHIAL
[2025-03-26] MEDS: PHENYLEPHRINE 50 MG in IV NS 0.9% 245 ML IV PRN (15:24)
[2025-03-26] MEDS: ALBUMIN 25% 25 GM in PREMIX 1 EA IV SCH (17:43)
[2025-03-26] MEDS: VASOPRESSIN INJ 40 UNIT in IV NS 0.9% 38 ML IV PRN (18:44)
== END 2025-03-26 19:05 | DRG 870 ==
LOC: ER 18:38 → TELE1 21:41 → ICU 03-21 13:31 → UNDODISIN 03-27 00:03
PROVIDERS: ADMIT Nurse Practitioner Family; ATTEND Nurse Practitioner Family
PROC: 5A1955Z Respiratory Ventilation, Greater than 96 Consecutive Hours (ICD-10-PCS; principal; 2025-03-11)
PROC: 0BH17EZ Insertion of Endotracheal Airway into Trachea, Via Natural or Artificial Opening (ICD-10-PCS; 2025-03-11)
PROC: 0W993ZX Drainage of Right Pleural Cavity, Percutaneous Approach, Diagnostic (ICD-10-PCS; 2025-03-13)
PROC: 0W9G3ZX Drainage of Peritoneal Cavity, Percutaneous Approach, Diagnostic (ICD-10-PCS; 2025-03-13)
PROC: 30233N1 Transfusion of Nonautologous Red Blood Cells into Peripheral Vein, Percutaneous Approach (ICD-10-PCS; 2025-03-13)
PROC: 0W9G3ZZ Drainage of Peritoneal Cavity, Percutaneous Approach (ICD-10-PCS; 2025-03-18)
PROC: 06HY33Z Insertion of Infusion Device into Lower Vein, Percutaneous Approach (ICD-10-PCS; 2025-03-22)
PROC: 5A1D70Z Performance of Urinary Filtration, Intermittent, Less than 6 Hours Per Day (ICD-10-PCS; 2025-03-22)
DX: A41.50 Gram-negative sepsis, unspecified (principal); E43 Unspecified severe protein-calorie malnutrition; J96.21 Acute and chronic respiratory failure with hypoxia; N17.0 Acute kidney failure with tubular necrosis; K65.2 Spontaneous bacterial peritonitis; J15.69 Pneumonia due to other Gram-negative bacteria; J69.0 Pneumonitis due to inhalation of food and vomit; R65.21 Severe sepsis with septic shock; K76.7 Hepatorenal syndrome; J95.851 Ventilator associated pneumonia; D68.59 Other primary thrombophilia; Z99.11 Dependence on respirator [ventilator] status; E87.20 Acidosis, unspecified; K76.6 Portal hypertension; R18.8 Other ascites; I50.32 Chronic diastolic (congestive) heart failure; E87.1 Hypo-osmolality and hyponatremia; J90 Pleural effusion, not elsewhere classified; K21.9 Gastro-esophageal reflux disease without esophagitis; Y84.8 Other medical procedures as the cause of abnormal reaction of the patient, or of later complication, without mention of misadventure at the time of the procedure; Y92.9 Unspecified place or not applicable; Z20.822 Contact with and (suspected) exposure to COVID-19; Z66 Do not resuscitate; R56.9 Unspecified convulsions; Z99.2 Dependence on renal dialysis; Z93.1 Gastrostomy status; Z93.0 Tracheostomy status; M89.8X9 Other specified disorders of bone, unspecified site; R13.10 Dysphagia, unspecified; K74.60 Unspecified cirrhosis of liver; E78.5 Hyperlipidemia, unspecified; D69.6 Thrombocytopenia, unspecified; Z86.718 Personal history of other venous thrombosis and embolism; Z86.711 Personal history of pulmonary embolism; Z79.4 Long term (current) use of insulin; Z79.899 Other long term (current) drug therapy; Z79.51 Long term (current) use of inhaled steroids; Z74.01 Bed confinement status; E11.40 Type 2 diabetes mellitus with diabetic neuropathy, unspecified; E88.09 Other disorders of plasma-protein metabolism, not elsewhere classified; E66.9 Obesity, unspecified; D50.9 Iron deficiency anemia, unspecified; Z68.31 Body mass index [BMI] 31.0-31.9, adult; Y95 Nosocomial condition; L60.0 Ingrowing nail; I11.0 Hypertensive heart disease with heart failure; T36.0X5A Adverse effect of penicillins, initial encounter; G93.89 Other specified disorders of brain; I46.9 Cardiac arrest, cause unspecified
CPT/HCPCS: 31720; 36415; 36600; 49083; 71045-TC; 71250-TC; 76705-TC; 80048-TC; 80053-TC; 80076-TC; 80202-TC; 81001; 82040-TC; 82247-TC; 82248-TC; 82550-TC; 82570-TC; 82803-TC; 82962-TC; 83520; 83605-TC; 83735-TC; 83880; 83970; 84100-TC; 84155; 84165; 84300-TC; 84478-TC; 84484-TC; 85025-TC; 85610-TC; 85652-TC; 85730-TC; 86225; 86235; 86256; 86704; 86705; 86706; 86803; 86850-TC; 87040-TC; 87070-TC; 87081-TC; 87086-TC; 87102-TC; 87186-TC; 87205-TC; 87340; 88108-TC; 88305-TC; 89051-TC; 90935-TC; 94002-TC; 94003-TC; 94760-TC; 94762-TC; 94799-TC; 99082-TC; A4216; A4223; A4624; A6213; A6253; A6403; A7526; C1752; G0378; J0456; J0692; J1644; J1815; J2248; J2354; J2470; J2543; J2765; J2916; J3370; J3480; J3490; J7030; J7042; J7050; J7060; P9016; P9047